=== PATIENT | male | born 1965 | race Caucasian/White ===

== ENCOUNTER 2021-09-06 18:09 | Inpatient (IN) | payer BC ==
[~2021-09-06] VITALS: Ht 185.5 cm; Wt 147.5 kg
[~2021-09-06 18:09] MED LIST: ACHD5005 PO; CIPR-225 PO; DOCU-143 PO; HYDR-4226 PO; METR500T PO
[2021-09-07] MEDS ORDERED: ONDANSETRON 4 MG/5 ML ORAL SOLN (ZOFRAN) 5 ML PO PRN (00:30)
[2021-09-07] MEDS ORDERED: NS IV 1000 ML 1,000 ML IV SCH (00:30)
[2021-09-07] MEDS ORDERED: ONDANSETRON 4 MG/2 ML (SDV) Z0FRAN IV PRN (00:30)
[2021-09-07] MEDS ORDERED: PROPOFOL DRIP (ICU) 100 ML IV SCH (00:30)
[2021-09-07] MEDS ORDERED: ACETAMINOPHEN 650 MG SUPP (TYLENOL) PR PRN (00:30)
[2021-09-07] MEDS ORDERED: ACETAMINOPHEN 325 MG TABLET PO PRN (00:30)
--- NOTE | 2021-09-07 00:35 | Progress Note ---
Progress Note CC: Acute respiratory failure from COVID-19 PNA HPI: This is a 56yoWM clinic patient of Alayna Corey NP who was transferred from [facility] ICU after admitted earlier in the evening for worsened acute respiratory failure and hypotension. He currently smokes and uses CPAP for APOORVA for 2 years. He was vaccinated against COVID with J&J this summer. His sugars were elevated at 600+ on admit and given Decadron so insulin drip was initiated along with Cefepime and Zmax and Lovenox. IVF given for low BP but lactic acid was 2.0. D- dimer was 0.66. ABG revealed 7.29/49/49 but he was well appearing so he was admitted to [facility] with ICU bed reserved at [facility]. He became more hypotensive and required bipap initiation so the decision was made to move to [facility] for higher level of care. Actemra was discussed with the patient and will be given. Creatinine was 2.0 on admit. HGBA1C 14.9. Had CAD stents years ago no recent or regular f/u. He has worked at [employer] in [place] for 11 years in [facility] and he lives alone. JELENA MAYFIELD DO Sep 07, 2021 00:35
[2021-09-07] MEDS ORDERED: DEXTROSE 50% 50 ML (IMS) SYR IV PRN (00:45)
[2021-09-07] MEDS ORDERED: inSUlin (REGULAR) HUMAN 1 UNIT/0.01 ML (CHARGE PER UNIT) IV ONE (00:45)
[2021-09-07] MEDS ORDERED: NOREPINEPHRINE 8 MG/250 ML 250 ML IV ONE (01:57)
[2021-09-07] MEDS ORDERED: NS IV 1000 ML 1,000 ML ONE (02:02)
[2021-09-07] MEDS ORDERED: NOREPINEPHRINE 8 MG/250 ML 250 ML IV SCH (02:15)
[2021-09-07] MEDS ORDERED: inSUlin (REGULAR) HUMAN 1 UNIT/0.01 ML (CHARGE PER UNIT) ONE (02:32)
[2021-09-07] MEDS: NOREPINEPHRINE 8 MG/250 ML 250 ML IV SCH ×3 (02:33→16:37)
[2021-09-07 02:34] LABS: BASOPHILS % (AUTO) 0 % (0-10); EOSINOPHILS % (AUTO) 0 % (0-10); HEMATOCRIT 48 % (40-54); HEMOGLOBIN 15.4 g/dL (13.3-17.7); LYMPHOCYTES # (AUTO) 0.6 10^3/uL (1.0-4.0); LYMPHOCYTES % (AUTO) 9 % (12-44); MEAN CORPUSCULAR HEMOGLOBIN 29 pg (25-34); MEAN CORPUSCULAR HGB CONC 32 g/dL (32-36); MEAN CORPUSCULAR VOLUME 88 fL (80-99); MEAN PLATELET VOLUME 11.6 fL (9.0-12.2); MONOCYTES # (AUTO) 0.4 10^3/uL (0.0-1.0); MONOCYTES % (AUTO) 6 % (0-12); NEUTROPHILS # (AUTO) 5.8 10^3/uL (1.8-7.8); NEUTROPHILS % (AUTO) 85 % (42-75); PLATELET COUNT 178 10^3/uL (130-400); WHITE BLOOD COUNT 6.8 10^3/uL (4.3-11.0)
[2021-09-07] MEDS: NS IV 1000 ML 1,000 ML IV SCH ×3 (02:34→13:25)
[2021-09-07 02:46] LABS: ALBUMIN 3.7 GM/DL (3.2-4.5); CHLORIDE 95 MMOL/L (98-107); POTASSIUM 5.1 MMOL/L (3.6-5.0); SODIUM 127 MMOL/L (135-145)
[2021-09-07 02:48] LABS: CALCIUM 8.1 MG/DL (8.5-10.1); TRIGLYCERIDES 203 MG/DL (<150)
[2021-09-07 02:49] LABS: GLUCOSE 375 MG/DL (70-105); TOTAL PROTEIN 7.4 GM/DL (6.4-8.2)
[2021-09-07 02:50] LABS: CARBON DIOXIDE 19 MMOL/L (21-32)
[2021-09-07 02:51] LABS: BILIRUBIN,TOTAL 0.4 MG/DL (0.1-1.0)
[2021-09-07 02:52] LABS: ALKALINE PHOSPHATASE 77 U/L (40-136); CREATININE SERUM 1.97 MG/DL (0.60-1.30); GFR ESTIMATED 35
[2021-09-07 02:53] LABS: BUN/CREATININE RATIO 20; PHOSPHORUS 4.9 MG/DL (2.3-4.7)
[2021-09-07 02:55] LABS: ALANINE AMINOTRANSFERASE 19 U/L (0-55)
[2021-09-07 02:56] LABS: MAGNESIUM 2.6 MG/DL (1.6-2.4)
[2021-09-07] MEDS: fentaNYL DRIP PRE-MIX 250 ML IV SCH (03:24)
[2021-09-07] MEDS: MAGNESIUM 1 GM/100 ML IVPB 100 ML IV SCH (03:29)
[2021-09-07] MEDS: POTASSIUM CL 10MEQ/50ML IVPB 50 ML IV SCH (03:29)
[2021-09-07] MEDS: KCL 20 MEQ TAB (K-DUR) PO SCH (03:29)
--- NOTE | 2021-09-07 04:02 | Tele-ICU Progress Note ---
Progress Note Tele ICU Brief admit note 56 yo man transferred from outside care facility with hypoxemic respiratory failure due to COVID PNA. Per records: He received J&J during Summer. no booster. 3 days of symptoms prior to presentation there, now 4 days illness. PMHx reported COPD using nocturnal CPAP, cigarette abuse, CAD s/p stents. He presented to OSH with hyperglycemia and markedly elevated HB A1C but no outpt med reconciliation showing hypoglycemic agents or insulin. CXR from OSH has lower lung moralez cut off , appears consolidation LLL. perihilar infiltrates. Currrent BiPAP / 85% saturations 92%. Hospitalist has completed orders, placed pt on insulin drip, serial labs, Actemra, acyclovir, azithromycin, cefepime, decadron . DVT Prophylaxis : Lovenox, GIB Prophylaxis: Protonix. ABGs, procalcitonin added to AM labs. No tele ICU interventions needed at this time. Focused Exam Lactate Level 09/07/21 02:25: Lactic Acid Level 1.98 Height, Weight, BMI Height: 6'1.00" Weight: 324lbs. 0.0oz. 146.916261yy; 42.42 BMI Method:Stated Lactic Acid Level Laboratory Tests Test 09/07/21 02:25 Lactic Acid Level 1.98 MMOL/L (0.50-2.00) FAY RENEE DO Sep 07, 2021 04:02
[2021-09-07] MEDS: ENOXAPARIN 40 MG/0.4 ML (LOVENOX) SYR SC SCH ×2 (05:13→17:31)
[2021-09-07] MEDS: CEFEPIME 1,000 MG/NS 50 ML IVPB IV SCH ×6 (05:13→17:31)
--- NOTE | 2021-09-07 06:26 | Diagnostic Imaging Report ---
EXAMINATION: Chest 1 view HISTORY: Covid-19 COMPARISON: 09/06/2021 FINDINGS: There are moderate left sided airspace opacities. There is a small left effusion. No pneumothorax. Heart size is unchanged. There are mild right base airspace opacities. IMPRESSION: 1. Moderate left and mild right base airspace opacities consistent with history of pneumonia. Dictated by: Dictated on workstation # [id number]
[2021-09-07 06:32] LABS: ABG BASE EXCESS -4.7 MMOL/L (-2.5-2.5); ABG OXYGEN SATURATION 93 % (94-100); ABG PCO2 63 MMHG (35-45); ABG PO2 67 MMHG (79-93); ABG TCO2 25.1 MMOL/L (21.0-31.0)
[2021-09-07 06:37] LABS: ABG PH 7.18 (7.37-7.43); ALLENS TEST YES-POS; INSPIRED O2 90%; VENTILATOR NO
[2021-09-07 06:38] LABS: PATIENT TEMP 35.3
[2021-09-07 06:45] VITALS: BP 140/67
[2021-09-07] MEDS ORDERED: TOCILIZUMAB INJECTION (NON-FOR 800 MG in NS (IVPB) 60 ML IV ONE (07:00)
[2021-09-07] MEDS ORDERED: FLU QUADRIvalent (3YOA+) 60 mcg/0.5 ml 2021-22(AFLURIA) IM ONE (07:15)
[2021-09-07] MEDS: PANTOPRAZOLE 40 MG (PROTONIX) VIAL IV SCH (08:40)
[2021-09-07] MEDS: ACYCLOVIR 400 MG TABLET (ZOVIRAX) PO SCH ×2 (08:47→20:14)
[2021-09-07] MEDS ORDERED: CEFEPIME INJECTION 2,000 MG in NS (IVPB) 50 ML IV SCH (09:00)
[2021-09-07 09:03] LABS: ABG BASE EXCESS -4.7 MMOL/L (-2.5-2.5); ABG OXYGEN SATURATION 96 % (94-100); ABG PCO2 56 MMHG (35-45); ABG PO2 86 MMHG (79-93); ABG TCO2 23.8 MMOL/L (21.0-31.0)
[2021-09-07 09:04] LABS: ABG PH 7.22 (7.37-7.43); ALLENS TEST YES-POS
[2021-09-07 09:05] LABS: INSPIRED O2 90%; PATIENT TEMP 36.2; VENTILATOR NO
[2021-09-07 10:28] VITALS: BP 103/59
[2021-09-07] MEDS: inSUlin ASPART (NovoLOG) 1 UNIT/0.01 ML (CHARGE PER UNIT) SQ SCH ×3 (11:27→19:53)
--- NOTE | 2021-09-07 11:35 | Physical Therapy Progress Note ---
Therapy Progress Note Patient currently on Hold per physician due to increase O2 demand. BREANA ALFONSO PT Sep 07, 2021 11:35
--- NOTE | 2021-09-07 11:58 | Occ Therapy Progress Note ---
Therapy Progress Note Pt on hold this date per RN. OT will attempt evaluation tomorrow. TRUDY DAVILA OT Sep 07, 2021 11:58
[2021-09-07] MEDS ORDERED: POTA-169 PO (12:11)
[2021-09-07] MEDS ORDERED: ATOR40TA70 PO (12:11)
[2021-09-07] MEDS ORDERED: PRAS10TA10 PO (12:11)
[2021-09-07] MEDS ORDERED: LISI20TA26 PO (12:11)
[2021-09-07] MEDS ORDERED: DILT240C91 PO (12:11)
[2021-09-07] MEDS ORDERED: EMPA10TA PO (12:11)
[2021-09-07] MEDS ORDERED: FURO40TA4 PO (12:11)
[2021-09-07] MEDS ORDERED: METF-399 PO (12:11)
[2021-09-07] MEDS ORDERED: INSU100I14 SQ (12:54)
[2021-09-07] MEDS ORDERED: INSU100I29 SC (12:54)
--- NOTE | 2021-09-07 12:56 | History & Physical ---
[facility] 09/07/21 1255: History of Present Illness History of Present Illness Reason for visit/HPI CC: Acute Hypoxic Respiratory Failure HPI: 56 yo male transferred from [facility] ICU to [facility] ICU late last night/early this morning (09/07). Patient is vaccinated against covid. On admission at [facility], patient was hypotensive, hyperglycemic (600+ sugars and A1c of 14.9), and acidotic, however, was well appearing granting admission at [facility]. During the night, patient became more hypotensive and hypoxic requiring BiPAP, therefore, he was transferred to [facility]. ABG on admission was 7.18/63/67, sodium of 127, potassium of 5.1, and an x-ray revealing moderate left and mild right base airspace opacities consistent with history of pneumonia. Patient currently smokes and uses CPAP for APOORVA x 2 years and has a history of CAD with stents placed years ago. 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 History was difficult to obtain as patient was currently on BiPAP. Most of the history was obtained through chart review. Patient denies any pain, fevers, chills, nausea, or vomiting. Shrugs his shoulders when asked if his breathing is improving. Date of Admission Sep 07, 2021 at 01:50 Date Seen by a Provider: Sep 07, 2021 Time Seen by a Provider: 09:40 I consulted on this patient on 09/07/21 12:50 Attending Physician Selina Mayfield DO Admitting Physician No,Local Physician Consult Acute Hypoxic Respiratory Failure Allergies and Home Medications Allergies Coded Allergies: No Known Drug Allergies (Unverified , 01/23/16) Patient Home Medication List Home Medication List Reviewed: Yes Atorvastatin Calcium (Atorvastatin Calcium) 40 Mg Tablet, 40 MG PO HS, (Report ed) Entered as Reported by: KATLYN FLEMING on 09/07/211210 Last Action: Reviewed Diltiazem HCl (Diltiazem 24Hr ER) 240 Mg Cap.er.24h, 240 MG PO DAILY, (Reported) Entered as Reported by: KATLYN FLEMING on 09/07/211210 Last Action: Reviewed Empagliflozin (Jardiance) 10 Mg Tablet, 10 MG PO DAILY, (Reported) Entered as Reported by: KATLYN FLEMING on 09/07/211210 Last Action: Reviewed Furosemide (Furosemide) 40 Mg Tablet, 40 MG PO DAILY, (Reported) Entered as Reported by: KATLYN FLEMING on 09/07/211210 Last Action: Reviewed Insulin Aspart (Novolog Flexpen) 300 Units/3 Ml Solution, 15 UNITS SQ AC, (Reported) Entered as Reported by: KATLYN FLEMING on 09/07/21 125 Last Action: Reviewed Insulin Detemir (Levemir Flextouch) 100 Unit/1 Ml Insuln.pen, 40 UNITS SC BID, (Reported) Entered as Reported by: KATLYN FLEMING on 09/07/21 125 Last Action: Reviewed Lisinopril (Lisinopril) 20 Mg Tablet, 20 MG PO HS, (Reported) Entered as Reported by: KATLYN FLEMING on 09/07/211210 Last Action: Reviewed Metformin HCl (Metformin HCl) 1,000 Mg Tablet, 1,000 MG PO BID, (Reported) Entered as Reported by: KATLYN FLEMING on 09/07/211210 Last Action: Reviewed Potassium Chloride (Klor-Con M20) 20 Meq Tab.er.prt, 20 MEQ PO BID, (Reported) Entered as Reported by: KATLYN FLEMING on 09/07/211210 Last Action: Reviewed Prasugrel HCl (Prasugrel HCl) 10 Mg Tablet, 10 MG PO DAILY, (Reported) Entered as Reported by: KATLYN FLEMING on 09/07/211210 Last Action: Reviewed Discontinued Medications Ciprofloxacin HCl (Cipro) 500 Mg Tablet, 500 MG PO BID Discontinued Reason: No Longer Taking Prescribed by: MXA SANTIAGO on 01/23/16 1544 Last Action: Discontinued Hydrocodone Bit/Acetaminophen (Lortab 5 Mg Tablet) 1 Each Tablet, 1 TAB PO Q4H PRN Discontinued Reason: No Longer Taking Prescribed by: MARISOL STONER on 01/29/16 1800 Last Action: Discontinued Past Wlzlojb-Cffzrr-Xqjmjg Hx Patient Social History Tobacco Use?: Yes Tobacco type used: Cigarettes Smoking Status: Current Everyday Smoker Smokeless Tobacco Frequency: Never a User Use of E-Cig and/or Vaping Deondre: Never a User Substance use?: No Alcohol Use?: No Immunizations Up To Date First/Initial COVID19 Vaccinat: NOVEMBER 2020 Current Status Advance Directives: No Communicates: Verbally Primary Language: [place] Citizen Preferred Spoken Language: [place] Citizen Is interpretation needed?: No Implanted or Applied Medical D: Stents Past Medical History Surgeries: Coronary Stent Sleep Apnea, COPD Coronary Artery Disease, High Cholesterol Gall Bladder Disease Diabetes, Non-Insulin dep Review of Systems Constitutional: No chills, No fever Respiratory: No cough; short of breath, other (currently on BiPAP) Cardiovascular: No chest pain Gastrointestinal: No abdominal pain, No nausea, No vomiting Genitourinary: No hematuria; other (james) Musculoskeletal: No joint pain, No joint swelling Skin: No change in color, No change in hair/nails Psychiatric/Neurological: Denies Numbness, Denies Tingling Physical Exam Vital Signs Vital Signs - First Documented 09/07/21 09/07/21 09/07/21 01:50 02:00 02:05 Temp 36.0 Pulse 73 Resp 34 B/P (MAP) 96/60 Pulse Ox 89 O2 Delivery NIV Bilevel O2 Flow Rate 100.00 FiO2 100 Capillary Refill : Height, Weight, BMI Height: 6'1.00" Weight: 324lbs. 0.0oz. 146.150715ha; 42.42 BMI Method:Stated General Appearance: Mild Distress, Obese Eyes: Bilateral Eye Normal Inspection, Bilateral Eye PERRL HEENT: PERRL/EOMI, Normal ENT Inspection (No gross deformities. bipap mask over nose and mouth) Neck: Non Tender, Supple Respiratory: Chest Non Tender, No Accessory Muscle Use, No Respiratory Distress, Other (Using bipap) Cardiovascular: Regular Rate, Rhythm, Normal Peripheral Pulses (Radial pusles 2+ bilaterally) Gastrointestinal: Normal Bowel Sounds, Non Tender, Soft Genital/Rectal: Other (Rectal defferred, James in place) Back: No CVA Tenderness, No Vertebral Tenderness Extremity: No Calf Tenderness, No Pedal Edema Neurologic/Psychiatric: Alert, Oriented x3 Skin: Normal Color, Warm/Dry Lymphatic: No Adenopathy (Posterior auricular or supraclavicular) Assessment/Plan Assessment and Plan Acute Hypoxic Respiratory Failure COVID-19 + 09/06/2021 Respiratory Acidosis APOORVA requiring CPAP Increased BMI (42.4) Smoker Hyponatremia possibly secondary to hyperglycemia Hyperkalemia CAD with Coronary Stent Placement Acute Kidney Injury Hyperglycemia Uncontrolled DM type 2 (A1c = 14) Possible CKD secondary to type 2 DM High risk intubation/actemra with picc line placement Continue to Monitor Respiratory status. If respiratory status continues to decline, patient will require intubation Cardiac Diet Repeat labs in AM Hyperkalemia protocol (albuterol, insulin, calcium gluconate) Continue IV Fluids, Normal saline. Discontinue Metformin due to RANDALL, hypoxemia, and acidosis Admission Diagnosis Acute Hypoxic Respiratory Failure Admission Status: Inpatient Order (span 2 midnights) Reason for Inpatient Admission: Acute Hypoxic Respiratory Failure SELINA MAYFIELD 09/08/21 0545: History of Present Illness History of Present Illness Reason for visit/HPI Pt is currently lying on his right side on BiPAP BiPAP dependency Actemra given Checked meds and labs Updated Nurse Pt denies wanting his family updated at this current time Pt is 100% on BiPAP Allergies and Home Medications Allergies Coded Allergies: No Known Drug Allergies (Unverified , 01/23/16) Patient Home Medication List Home Medication List Reviewed: Yes Atorvastatin Calcium (Atorvastatin Calcium) 40 Mg Tablet, 40 MG PO HS, (Reported) Entered as Reported by: KATLYN FLEMING on 09/07/211210 Last Action: Reviewed Diltiazem HCl (Diltiazem 24Hr ER) 240 Mg Cap.er.24h, 240 MG PO DAILY, (Reported) Entered as Reported by: KATLYN FLEMING on 09/07/211210 Last Action: Reviewed Empagliflozin (Jardiance) 10 Mg Tablet, 10 MG PO DAILY, (Reported) Entered as Reported by: KATLYN FLEMING on 09/07/211210 Last Action: Reviewed Furosemide (Furosemide) 40 Mg Tablet, 40 MG PO DAILY, (Reported) Entered as Reported by: KATLYN FLEMING on 09/07/211210 Last Action: Reviewed Insulin Aspart (Novolog Flexpen) 300 Units/3 Ml Solution, 15 UNITS SQ AC, (Reported) Entered as Reported by: KATLYN FLEMING on 09/07/21 125 Last Action: Reviewed Insulin Detemir (Levemir Flextouch) 100 Unit/1 Ml Insuln.pen, 40 UNITS SC BID, (Reported) Entered as Reported by: KATLYN FLEMING on 09/07/21 125 Last Action: Reviewed Lisinopril (Lisinopril) 20 Mg Tablet, 20 MG PO HS, (Reported) Entered as Reported by: KATLYN FLEMING on 09/07/211210 Last Action: Reviewed Metformin HCl (Metformin HCl) 1,000 Mg Tablet, 1,000 MG PO BID, (Reported) Entered as Reported by: KATLYN FLEMING on 09/07/211210 Last Action: Reviewed Potassium Chloride (Klor-Con M20) 20 Meq Tab.er.prt, 20 MEQ PO BID, (Reported) Entered as Reported by: KATLYN FLEMING on 09/07/211210 Last Action: Reviewed Prasugrel HCl (Prasugrel HCl) 10 Mg Tablet, 10 MG PO DAILY, (Reported) Entered as Reported by: KATLYN FLEMING on 09/07/211210 Last Action: Reviewed Discontinued Medications Ciprofloxacin HCl (Cipro) 500 Mg Tablet, 500 MG PO BID Discontinued Reason: No Longer Taking Prescribed by: MAX SANTIAGO on 01/23/16 1544 Last Action: Discontinued Hydrocodone Bit/Acetaminophen (Lortab 5 Mg Tablet) 1 Each Tablet, 1 TAB PO Q4H PRN Discontinued Reason: No Longer Taking Prescribed by: MARISOL STONER on 01/29/16 1800 Last Action: Discontinued Past Wvfvcjd-Pnyqjk-[place] Hx Patient Social History Marrital Status: single Employed/Student: employed Tobacco Use?: Yes Smoking Status: Current Everyday Smoker Past Medical History Surgeries: Coronary Stent, Gallbladder Sleep Apnea, COPD Currently Using CPAP: Yes Currently Using BIPAP: No Coronary Artery Disease, High Cholesterol, Hypertension Diabetes, Non-Insulin dep Review of Systems Constitutional: see HPI, dizziness, malaise, weakness EENTM: no symptoms reported Respiratory: dyspnea on exertion, short of breath, other (currently on BiPAP) Cardiovascular: no symptoms reported Gastrointestinal: no symptoms reported Genitourinary: no symptoms reported Musculoskeletal: no symptoms reported Skin: no symptoms reported Psychiatric/Neurological: No Symptoms Reported All Other Systems Reviewed Negative Unless Noted: Yes Physical Exam General Appearance: WD/WN, Chronically ill, Mild Distress, Obese Eyes: Bilateral Eye Normal Inspection, Bilateral Eye PERRL, Bilateral Eye EOMI HEENT: PERRL/EOMI, Normal ENT Inspection, Pharynx Normal Neck: Full Range of Motion, Normal Inspection, Non Tender, Supple, Carotid Br uit Respiratory: Chest Non Tender, Lungs Clear, No Accessory Muscle Use, No Respiratory Distress, Decreased Breath Sounds, Other (Using bipap) Cardiovascular: Regular Rate, Rhythm, No Edema, No Gallop, No JVD, No Murmur, Normal Peripheral Pulses Gastrointestinal: Normal Bowel Sounds, No Organomegaly, No Pulsatile Mass, Non Tender, Soft Back: Normal Inspection, No CVA Tenderness, No Vertebral Tenderness Extremity: Normal Capillary Refill, Normal Inspection, Normal Range of Motion, Non Tender, No Calf Tenderness, No Pedal Edema Neurologic/Psychiatric: Alert, Oriented x3, No Motor/Sensory Deficits, Normal Mood/Affect Skin: Normal Color, Warm/Dry Lymphatic: No Adenopathy Assessment/Plan Assessment and Plan BiPAP s/p Actemra Monitor closely High risk for intubation Decadron Lovenox Admission Diagnosis Admission Status: Inpatient Order (span 2 midnights) Reason for Inpatient Admission: covid Supervisory-Addendum Brief Verification & Attestation Participated in pt care: history, MDM, physical Personally performed: exam, history, MDM, supervision of care Care discussed with: Medical Student Procedures: n/a Results interpretation: Verified all documentation Verification and Attestation of Medical Student E/M Service A medical student performed and documented this service in my presence. I reviewed and verified all information documented by the medical student and made modifications to such information, when appropriate. I personally performed the physical exam and medical decision making. Selina Mayfield, Sep 08, 2021,05:41 MARNI RONQUILLO [facility] Sep 07, 2021 12:55 SELINA MAYFIELD DO Sep 08, 2021 05:45
[2021-09-07 14:04] VITALS: BP 111/83
[2021-09-07 15:43] LABS: ABG BASE EXCESS -6.4 MMOL/L (-2.5-2.5); ABG OXYGEN SATURATION 94 % (94-100); ABG PCO2 58 MMHG (35-45); ABG PO2 72 MMHG (79-93); ABG TCO2 22.8 MMOL/L (21.0-31.0)
[2021-09-07 15:44] LABS: ABG PH 7.18 (7.37-7.43)
[2021-09-07 15:45] LABS: ALLENS TEST YES-POS; INSPIRED O2 85 L; PATIENT TEMP 36.3; VENTILATOR NO
[2021-09-07] MEDS ORDERED: SODIUM BICARB 8.4% 50 MEQ/50 ML (ABBOTT) SYR IV NR (16:15)
[2021-09-07] MEDS: AZITHROMYCIN INJECTION 500 MG in NS (IVPB) 250 ML IV SCH (17:30)
[2021-09-08] MEDS: NS IV 1000 ML 1,000 ML IV SCH ×4 (00:29→23:31)
[2021-09-08] MEDS: CEFEPIME 1,000 MG/NS 50 ML IVPB IV SCH ×10 (00:29→23:31)
[2021-09-08] MEDS: inSUlin ASPART (NovoLOG) 1 UNIT/0.01 ML (CHARGE PER UNIT) SQ SCH ×10 (00:32→23:30)
[2021-09-08] MEDS: fentaNYL DRIP PRE-MIX 250 ML IV SCH ×2 (00:32→23:09)
[2021-09-08 02:43] VITALS: BP 132/76
[2021-09-08 04:24] LABS: ABG BASE EXCESS -3.7 MMOL/L (-2.5-2.5); ABG OXYGEN SATURATION 96 % (94-100); ABG PCO2 56 MMHG (35-45); ABG PO2 79 MMHG (79-93); ABG TCO2 24.6 MMOL/L (21.0-31.0)
[2021-09-08 04:26] LABS: ALLENS TEST YES-POS; BASOPHILS % (AUTO) 0 % (0-10); EOSINOPHILS % (AUTO) 0 % (0-10); HEMATOCRIT 45 % (40-54); HEMOGLOBIN 14.7 g/dL (13.3-17.7); LYMPHOCYTES # (AUTO) 0.6 10^3/uL (1.0-4.0); LYMPHOCYTES % (AUTO) 9 % (12-44); MEAN CORPUSCULAR HEMOGLOBIN 29 pg (25-34); MEAN CORPUSCULAR HGB CONC 33 g/dL (32-36); MEAN CORPUSCULAR VOLUME 88 fL (80-99); MEAN PLATELET VOLUME 11.3 fL (9.0-12.2); MONOCYTES # (AUTO) 0.3 10^3/uL (0.0-1.0); MONOCYTES % (AUTO) 5 % (0-12); NEUTROPHILS # (AUTO) 5.4 10^3/uL (1.8-7.8); NEUTROPHILS % (AUTO) 85 % (42-75); PLATELET COUNT 190 10^3/uL (130-400); WHITE BLOOD COUNT 6.4 10^3/uL (4.3-11.0)
[2021-09-08 04:27] LABS: INSPIRED O2 100% BIPAP; VENTILATOR NO
[2021-09-08 04:28] LABS: PATIENT TEMP 36.6
[2021-09-08 04:29] LABS: ABG PH 7.23 (7.37-7.43)
--- NOTE | 2021-09-08 04:40 | Diagnostic Imaging Report ---
EXAMINATION: Chest 1 view HISTORY: Pneumonia COMPARISON: 09/07/2021 FINDINGS: Stable enlargement of the cardiac silhouette. There are low lung volumes with patchy consolidation within both lungs, left greater than right. Left consolidation appears to be greater than on 09/07/2021. Right-sided PICC line is unchanged. No pneumothorax. There may be small left pleural effusion. The osseous structures are intact. IMPRESSION: 1. Increasing left lung atelectasis or consolidation with likely small left pleural effusion. Dictated by: Dictated on workstation # [id number]
[2021-09-08 04:43] LABS: POTASSIUM 6.2 MMOL/L (3.6-5.0)
[2021-09-08 04:44] LABS: CALCIUM 7.5 MG/DL (8.5-10.1)
[2021-09-08 04:45] LABS: TOTAL PROTEIN 6.2 GM/DL (6.4-8.2)
[2021-09-08 04:47] LABS: BILIRUBIN,TOTAL 0.4 MG/DL (0.1-1.0)
[2021-09-08] MEDS: KCL 20 MEQ TAB (K-DUR) PO SCH (04:48)
[2021-09-08] MEDS: MAGNESIUM 1 GM/100 ML IVPB 100 ML IV SCH (04:48)
[2021-09-08] MEDS: POTASSIUM CL 10MEQ/50ML IVPB 50 ML IV SCH (04:48)
[2021-09-08 04:49] LABS: CREATININE SERUM 1.33 MG/DL (0.60-1.30); PHOSPHORUS 4.1 MG/DL (2.3-4.7)
[2021-09-08 04:52] LABS: MAGNESIUM 2.6 MG/DL (1.6-2.4)
[2021-09-08] MEDS: ENOXAPARIN 40 MG/0.4 ML (LOVENOX) SYR SC SCH ×2 (05:02→17:46)
[2021-09-08 07:09] VITALS: BP 90/63
[2021-09-08] MEDS ORDERED: DEXTROSE 50% 50 ML (IMS) SYR IV ONE (07:45)
[2021-09-08] MEDS ORDERED: SOD POLYSTERENE 15 GM/60 ML (KAYEXALATE) UNIT DOSE PO ONE (07:45)
[2021-09-08] MEDS ORDERED: SODIUM BICARB 8.4% 50 MEQ/50 ML (ABBOTT) SYR IV ONE (07:45)
[2021-09-08] MEDS ORDERED: CALCIUM GLUC. 10% 4.65 MEQ/10 ML VIAL IV ONE (07:45)
[2021-09-08] MEDS ORDERED: inSUlin (REGULAR) HUMAN 1 UNIT/0.01 ML (CHARGE PER UNIT) IV SCH (07:45)
[2021-09-08 07:59] VITALS: BP 105/83
[2021-09-08] MEDS: ACYCLOVIR 400 MG TABLET (ZOVIRAX) PO SCH ×2 (08:08→20:10)
[2021-09-08] MEDS: PRASUGREL 10 MG (EFFIENT) TABLET PO SCH (08:08)
[2021-09-08] MEDS: PANTOPRAZOLE 40 MG (PROTONIX) VIAL IV SCH (08:09)
[2021-09-08] MEDS ORDERED: RT-ALBUTEROL HFA 8.5 GM INHALER IH PRN (08:15)
--- NOTE | 2021-09-08 08:21 | Tele-ICU Progress Note ---
Subjective Date Seen by a Provider: Sep 08, 2021 Time Seen by a Provider: 08:21 Subjective/Events-last exam Patient today remained on BiPAP ventilation. His blood pressure is slightly low requiring low-dose Levophed. However his BMP revealed increase in the potassium which is 6.2. I have held his just trial and gave calcium gluconate, sodium bicarbonate, D50 W oral and IV insulin as well as a whorled Kayexalate. We will repeat another BMP at 11:00 and further evaluate patient. Discussed with the MATERIALS ENGINEERING TECHNICIAN and video visit made and discussed with the patient. Review of Systems ROS PER RN Sepsis Event Evaluation Height, Weight, BMI Height: 6'1.00" Weight: 324lbs. 0.0oz. 146.424677kv; 42.42 BMI Method:Stated Focused Exam Lactate Level 09/07/21 02:25: Lactic Acid Level 1.98 Exam Exam Patient acknowledged, consented, and participated in this virtual visit which was conducted using real time audio/video Vital Signs Date Time Temp Pulse Resp B/P (MAP) Pulse Ox O2 Delivery O2 Flow Rate FiO2 09/08/21 07:59 74 94 85 09/08/21 07:55 36.0 09/08/21 07:09 73 24 94 85.00 09/08/21 06:00 75 27 105/83 87 NIV Bilevel 100.00 09/08/21 05:00 77 22 111/65 89 NIV Bilevel 100.00 09/08/21 04:24 NIV Bilevel 100 09/08/21 04:11 36.6 09/08/21 04:00 75 20 111/66 89 NIV Bilevel 100.00 09/08/21 03:00 78 21 110/65 91 NIV Bilevel 100.00 09/08/21 02:43 80 25 92 100.00 09/08/21 02:00 66 24 124/70 92 NIV Bilevel 100.00 09/08/21 01:00 62 24 112/63 95 NIV Bilevel 100.00 09/08/21 01:00 62 09/08/21 00:34 NIV Bilevel 100 09/08/21 00:00 36.4 09/08/21 00:00 76 11 109/49 94 NIV Bilevel 100.00 09/07/21 23:00 64 24 106/62 90 NIV Bilevel 100.00 09/07/21 22:00 79 22 105/58 87 NIV Bilevel 100.00 09/07/21 21:59 80 30 92 100.00 09/07/21 21:00 81 23 105/59 92 NIV Bilevel 100.00 09/07/21 20:11 NIV Bilevel 100 09/07/21 20:00 83 24 95/56 90 NIV Bilevel 100.00 09/07/21 19:44 36.3 09/07/21 19:00 74 114/63 90 NIV Bilevel 90.00 09/07/21 19:00 74 09/07/21 18:42 73 24 92 85.00 09/07/21 18:00 71 121/72 92 NIV Bilevel 90.00 09/07/21 17:00 68 94 NIV Bilevel 90.00 09/07/21 16:37 73 110/60 09/07/21 16:16 NIV Bilevel 85 09/07/21 16:00 70 103/57 97 NIV Bilevel 90.00 09/07/21 15:00 64 116/56 93 NIV Bilevel 90.00 09/07/21 14:04 69 25 94 90.00 09/07/21 14:00 72 120/64 96 NIV Bilevel 90.00 09/07/21 13:00 65 09/07/21 13:00 64 126/67 97 NIV Bilevel 90.00 09/07/21 12:15 NIV Bilevel 100 09/07/21 12:00 61 119/56 99 NIV Bilevel 90.00 09/07/21 11:28 35.6 09/07/21 11:00 62 103/54 96 NIV Bilevel 90.00 09/07/21 10:28 64 24 94 90.00 09/07/21 10:00 71 80/41 90 NIV Bilevel 90.00 09/07/21 09:00 74 99/62 89 NIV Bilevel 90.00 09/07/21 08:25 NIV Bilevel 100 I & O 09/08/21 07:00 Intake Total 7700 ml Output Total 2850 ml Balance 4850 ml Height & Weight Height: 6'1.00" Weight: 324lbs. 0.0oz. 146.510536mj; 42.42 BMI Method:Stated General Appearance: WD/WN, Chronically ill, Mild Distress, Obese HEENT: PERRL/EOMI, Normal ENT Inspection, Pharynx Normal Neck: Full Range of Motion, Normal Inspection, Non Tender, Supple, Carotid Bruit Respiratory: Chest Non Tender, Lungs Clear, No Accessory Muscle Use, No Respiratory Distress, Decreased Breath Sounds, Other (Using bipap) Cardiovascular: Regular Rate, Rhythm, No Edema, No Gallop, No JVD, No Murmur, Normal Peripheral Pulses Extremity: Normal Capillary Refill, Normal Inspection, Normal Range of Motion, Non Tender, No Calf Tenderness, No Pedal Edema Neurologic/Psychiatric: Alert, Oriented x3, No Motor/Sensory Deficits, Normal Mood/Affect Skin: Normal Color, Warm/Dry Lymphatic: No Adenopathy Other comments PE PER RN Results Lab Laboratory Tests 09/07/21 02:25 09/08/21 04:15 Assessment/Plan Assessment/Plan 1. Acute Covid19 pneumonia 2. Acute hypoxic respiratory failure 3. Hypotension 4. Hyperkalemia probably due to combination of steroids and AMADEO inhibitor's. Recommendations 1. Continue BiPAP ventilation 2. Lower Levophed to keep map over 65 3. We will hold off just 12 4. Treatment for hyperkalemia including calcium gluconate, sodium bicarbonate, IV dextrose and insulin have been ordered in addition to oral Kayexalate. Repeat BMP will be done. 5. Video visit made and discussed with the MATERIALS ENGINEERING TECHNICIAN. Critical Care: Critically Ill Patient Time spent with patient (mins): 35 MARCIA MARRERO MD Sep 08, 2021 08:21
--- NOTE | 2021-09-08 10:45 | Physical Therapy Evaluation ---
PT Evaluation-General Medical Diagnosis Admission Date Sep 07, 2021 at 01:50 Medical Diagnosis: Covid with hypoxia Onset Date: Sep 07, 2021 Therapy Diagnosis Therapy Diagnosis: debility Height/Weight Height (Feet): 6 Height (Inches): 1.00 Weight (Pounds): 324 Weight (Ounces): 0.0 Precautions Precautions/Isolations: Airborne Isolation, Contact Isolation Referral Physician: Justin Reason for Referral: Evaluation/Treatment Medical History Pertinent Medical History: CAD, COPD, DM, Smoking Additional Medical History History of Present Illness History of Present Illness Reason for visit/HPI CC: Acute Hypoxic Respiratory Failure HPI: 56 yo male transferred from [facility] ICU to [facility] ICU late last night/early this morning (09/07). Patient is vaccinated against covid. On admission at [facility], patient was hypotensive, hyperglycemic (600+ sugars and A1c of 14.9), and acidotic, however, was well appearing granting admission at [facility]. During the night, patient became more hypotensive and hypoxic requiring BiPAP, therefore, he was transferred to [facility]. ABG on admission was 7.18/63/67, sodium of 127, potassium of 5.1, and an x-ray revealing moderate left and mild right base airspace opacities consistent with history of pneumonia. Patient currently smokes and uses CPAP for APOORVA x 2 years and has a history of CAD with stents placed years ago. He has worked at [employer] in [employer] [place] [place] for 11 years in [employer] [facility] and he lives alone. History was difficult to obtain as patient was currently on BiPAP. Most of the history was obtained through chart review. Patient denies any pain, fevers, chills, nausea, or vomiting. Shrugs his shoulders when asked if his breathing is improving. Current History transfer from [facility] for higher level of care Reviewed History: Yes Social History Home: Single Level Current Living Status: Alone Prior Prior Level of Function SCALE: Activities may be completed with or without assistive devices. 9-Idskhlswed-zclbrnd completes the activity by him/herself with no assistance from a helper. 5-Set-up or Clean-up Assistance-helper sets up or cleans up; patient completes activity. [place] assists only prior to or following the activity. 4-Supervision or Touching Assistance-helper provides verbal cues and/or touching/steadying and/or contact guard assistance as patient completes activity. Assistance may be provided throughout the activity or intermittently. 3-Partial/Moderate Assistance-helper does LESS THAN HALF the effort. [place] lifts, holds or supports trunk or limbs, but provides less than half the effort. 2-Substantial/Maximal Assistance-helper does MORE THAN HALF the effort. [place] lifts or holds trunk or limbs and provides more than half the effort. 0-Gqhyfjmep-doufsj does ALL the effort. Patient does none of the effort to complete the activity. Or, the assistance of 2 or more helpers is required for the patient to complete the activity. If activity was not attempted, code reason: 7-Patient Refused. 9-Not Applicable-not attempted and the patient did not perform the activity befo re the current illness, exacerbation or injury. 10-Not Attempted due to Environmental Limitations-(lack of equipment, weather re straints, etc.). 88-Not Attempted due to Medical Conditions or Safety Concerns. Bed Mobility: 6 Transfers (B,C,W/C): 6 Gait: 6 Stairs: 6 Indoor Mobility (Ambulation): Independent Stairs: Independent Prior Devices Use: None works at [employer] PT Evaluation-Current Subjective Patient agrees to PT. Currently on BiPap. Objective Patient Orientation: Normal For Age Attachments: Oxygen (BiPap), Tovar Catheter, IV ROM/Strength ROM Lower Extremities bilateral LE WFL Strength Lower Extremities 4/5 grossly bilateral LE Integumentary/Posture Bowel Incontinence: No Bladder Incontinence: Tovar Cath Posture WFL Neuromuscular (Tone, Coordination, Reflexes) grossly intact Sensory Vision: Functional Hearing: Functional Transfers Roll Left to Right (QC): 6 Sit to Lying (QC): 6 Lying to Sitting/Side of Bed(Q: 6 Sit to Stand (QC): 4 Chair/Qbl-gu-Utnuz Xfer(QC): 4 Gait Does the Patient Walk?: Yes Mode of Locomotion: Walk Anticipated Mode of Locomotion: Walk Walk 10 feet (QC): 4 (SBA for safety ) Walk 50 ft with 2 Turns(QC): 88 Walk 150 ft (QC): 88 Balance Sitting Static: Normal Sitting Dynamic: Normal Standing Static: Good Standing Dynamic: Good Assessment/Needs 56 y.o. male, will be seen by skilled PT to address pulmonary function with functional mobility and strengthening to ensure safe return to home at maximum LOF. Rehab Potential: Guarded PT Employee Benefits Manager Goals Longterm Goals PT Longterm Goals Time Frame: Sep 19, 2021 Roll Left & Right (QC): 6 Sit to Lying (QC): 6 Lying-Sitting on Side/Bed(QC): 6 Sit to Stand (QC): 6 Chair/Nxe-gn-Tlyov Xfer(QC): 6 Toilet Transfer (QC): 6 Walk 10 feet (QC): 6 Walk 50ft with 2 Turns (QC): 6 Walk 150 ft (QC): 6 PT Plan Problem List Problem List: Activity Tolerance, Functional Strength, Safety, Balance, Gait, Transfer, Bed Mobility Treatment/Plan Treatment Plan: Continue Plan of Care Treatment Plan: Bed Mobility, Education, Functional Activity Cris, Functional Strength, Gait, Safety, Therapeutic Exercise, Transfers Treatment Duration: Sep 19, 2021 Frequency: 6 times per week Estimated Hrs Per Day: .25 hour per day Patient and/or Family Agrees t: Yes Time/GCodes Time In: 915 Time Out: 935 Total Billed Treatment Time: 20 Total Billed Treatment 1 visit EVMod 20 min BREANA ALFONSO PT Sep 08, 2021 10:45
[2021-09-08 10:54] VITALS: BP 104/68
[2021-09-08] MEDS: RT-ALBUTEROL HFA 8.5 GM INHALER IH SCH ×4 (10:54→21:23)
[2021-09-08 11:21] LABS: CALCIUM 6.5 MG/DL (8.5-10.1); CREATININE SERUM 0.99 MG/DL (0.60-1.30); POTASSIUM 4.3 MMOL/L (3.6-5.0)
--- NOTE | 2021-09-08 11:26 | Progress Note ---
[facility] 09/08/21 1126: Subjective Date Seen by a Provider: Sep 08, 2021 Time Seen by a Provider: 08:30 Subjective/Events-last exam Patient continues to need BiPAP 100% with saturation of 87% Patient reports breathing is the same as yesterday x-Ray revealed increased left lung atelectasis AB.23/56/79 Potassium : 6.2 Review of Systems General: No Chills, No Other (fevers) Pulmonary: No Cough; Other (Requiring BIPAP) Cardiovascular: No: Chest Pain, Palpitations Gastrointestinal: No: Nausea, Vomiting, Abdominal Pain Focused Exam Lactate Level 09/07/21 02:25: Lactic Acid Level 1.98 Objective Exam Last Set of Vital Signs Vital Signs Date Time Temp Pulse Resp B/P (MAP) Pulse Ox O2 Delivery O2 Flow Rate FiO2 09/08/21 11:11 89 24 109/72 100 NIV Bilevel 90.00 09/08/21 07:59 85 09/08/21 07:55 36.0 Capillary Refill : I&O Intake and Output 09/07/21 23:59 Intake Total 46663 ml Output Total 2900 ml Balance 7600 ml Intake Oral 100 ml IV Total 66151 ml Output Urine Total 2900 ml Daily Weight Change No General: Alert, Oriented X3, No Acute Distress HEENT: Atraumatic, PERRLA Neck: Supple, No JVD Lungs: Clear to Auscultation, Other (Currently using bipap mask) Heart: Regular Rate, Normal S1, Normal S2 Abdomen: Normal Bowel Sounds, Soft Extremities: No Clubbing, No Cyanosis Skin: No Rashes, No Breakdown Neuro: Normal Gait, Normal Speech Results Lab Laboratory Tests 09/07/21 11:26: Glucometer 126H 09/07/21 15:34: Glucometer 334H 09/07/21 19:49: Glucometer 291H 09/07/21 20:34: Glucometer 285H 09/08/21 00:26: Glucometer 259H 09/08/21 04:00: Glucometer 244H 09/08/21 04:15: White Blood Count 6.4, Red Blood Count 5.15, Hemoglobin 14.7, Hematocrit 45, Mean Corpuscular Volume 88, Mean Corpuscular Hemoglobin 29, Mean Corpuscular Hemoglobin Concent 33, Red Cell Distribution Width 14.8H, Platelet Count 190, Mean Platelet Volume 11.3, Immature Granulocyte % (Auto) 1, Neutrophils (%) (Auto) 85H, Lymphocytes (%) (Auto) 9L, Monocytes (%) (Auto) 5, Eosinophils (%) (Auto) 0, Basophils (%) (Auto) 0, Neutrophils # (Auto) 5.4, Lymphocytes # (Auto) 0.6L, Monocytes # (Auto) 0.3, Eosinophils # (Auto) 0.0, Basophils # (Auto) 0.0, Immature Granulocyte # (Auto) 0.1, Blood Gas Puncture Site RR, Blood Gas Patient Temperature 36.6, Arterial Blood pH 7.23*L, Arterial Blood Partial Pressure CO2 56H, Arterial Blood Partial Pressure O2 79, Arterial Blood HCO3 23, Arterial Blood Total CO2 24.6, Arterial Blood Oxygen Saturation 96, Arterial Blood Base Excess -3.7L, Josiah Test YES-POS, Blood Gas Ventilator Setting NO, Blood Gas Inspired Oxygen 100% BIPAP, Sodium Level 135, Potassium Level 6.2H, Chloride Level 104, Carbon Dioxide Level 21, Anion Gap 10, Blood Urea Nitrogen 40H, Creatinine 1.33H, Estimat Glomerular Filtration Rate 55, BUN/Creatinine Ratio 30, Glucose Level 257H, Calcium Level 7.5L, Corrected Calcium 8.3L, Phosphorus L evel 4.1, Magnesium Level 2.6H, Total Bilirubin 0.4, Aspartate Amino Transf (AST/SGOT) 19, Alanine Aminotransferase (ALT/SGPT) 20, Alkaline Phosphatase 60, Total Protein 6.2L, Albumin 3.0L 09/08/21 07:43: Glucometer 280H 09/08/21 10:50: Assessment/Plan Assessment/Plan Assess & Plan/Chief Complaint Acute Hypoxic Respiratory Failure COVID-19 + 09/06/2021 Respiratory Acidosis APOORVA requiring CPAP Increased BMI (42.4) Smoker Hyponatremia possibly secondary to hyperglycemia Hyperkalemia CAD with Coronary Stent Placement Acute Kidney Injury Hyperglycemia Uncontrolled DM type 2 (A1c = 14) Possible CKD secondary to type 2 DM High risk intubation/actemra with picc line placement BiPAP s/p Actemra Continue to Monitor Respiratory status. If respiratory status continues to decline, patient will require intubation Decadron Lovenox Cardiac Diet Repeat labs in AM Hyperkalemia protocol (albuterol, insulin, calcium gluconate) Continue IV Fluids, Normal saline. Continue AM x-ray Clinical Quality Measures Admission Status Admission Dx Acute Hypoxic Respiratory Failure COVID-19 + 09/06/2021 Respiratory Acidosis APOORVA requiring CPAP Increased BMI (42.4) Smoker Hyponatremia possibly secondary to hyperglycemia Hyperkalemia CAD with Coronary Stent Placement Acute Kidney Injury Hyperglycemia Uncontrolled DM type 2 (A1c = 14) Possible CKD secondary to type 2 DM High risk intubation/actemra with picc line placement Continue to Monitor Respiratory status. If respiratory status continues to decline, patient will require intubation Cardiac Diet Repeat labs in AM Hyperkalemia protocol (albuterol, insulin, calcium gluconate) Continue IV Fluids, Normal saline. Discontinue Metformin due to R[place], hypoxemia, and acidosis SELINA MAYFIELD DO 09/09/21 0605: Subjective Subjective/Events-last exam Pt is sitting in chair On BiPAP Potassium 6.2 receiving insulin for that Creatinine 1.33 BiPAP at 100% Chest xray shows worsened left filtrate ABG 7.23/56/79 Very flat affect Review of Systems General: Fatigue, Malaise Pulmonary: Dyspnea Objective Exam General: Alert, Oriented X3, Cooperative, No Acute Distress Lungs: Clear to Auscultation, Other (Currently using bipap mask) Heart: Regular Rate Psych/Mental Status: Other (flat) Assessment/Plan Assessment/Plan Assess & Plan/Chief Complaint High risk for intubation BiPAP maxed Supervisory-Addendum Brief Verification & Attestation Participated in pt care: history, MDM, physical Personally performed: exam, history, MDM, supervision of care Care discussed with: Medical Student Procedures: n/a Results interpretation: Verified all documentation Verification and Attestation of Medical Student E/M Service A medical student performed and documented this service in my presence. I reviewed and verified all information documented by the medical student and made modifications to such information, when appropriate. I personally performed the physical exam and medical decision making. Selina Mayfield, Sep 09, 2021,06:04 [facility]ON[facility]ILL[facility] Sep 08, 2021 11:26 SELINA MAYFIELD DO Sep 09, 2021 06:05
--- NOTE | 2021-09-08 11:34 | Occupational Therapy Eval ---
OT Evaluation-General/PLF Medical Diagnosis Admission Date Sep 07, 2021 at 01:50 Medical Diagnosis: Covid with hypoxia Onset Date: Sep 07, 2021 Therapy Diagnosis Therapy Diagnosis: decreased ADL status Height/Weight Height (Feet): 6 Height (Inches): 1.00 Weight (Pounds): 324 Weight (Ounces): 0.0 Precautions Precautions/Isolations: Airborne Isolation, Contact Isolation Referral Physician: Justin Referral Reason: Evaluation/Treatment Medical History Pertinent Medical History: CAD, COPD, DM, Smoking Additional Medical History COPD, CAD with stents Current History transfer from [facility] with hypoxemic respiratory failure due to COVID19 Social History Home: Single Level Current Living Status: Alone ADL-Prior Level of Function SCALE: Activities may be completed with or without assistive devices. 7-Auslwfdivq-nlgwvih completes the activity by him/herself with no assistance from a helper. 5-Set-up or Clean-up Assistance-helper sets up or cleans up; patient completes activity. [place] assists only prior to or following the activity. 4-Supervision or Touching Assistance-helper provides verbal cues and/or touching/steadying and/or contact guard assistance as patient completes acti vity. Assistance may be provided throughout the activity or intermittently. 3-Partial/Moderate Assistance-helper does LESS THAN HALF the effort. [place] lifts, holds or supports trunk or limbs, but provides less than half the effort. 2-Substantial/Maximal Assistance-helper does MORE THAN HALF the effort. [place] lifts or holds trunk or limbs and provides more than half the effort. 7-Cpedfmcym-sjhjab does ALL the effort. Patient does none of the effort to complete the activity. Or, the assistance of 2 or more helpers is required for the patient to complete the activity. If activity was not attempted, code reason: 7-Patient Refused. 9-Not Applicable-not attempted and the patient did not perform the activity before the current illness, exacerbation or injury. 10-Not Attempted due to Environmental Limitations-(lack of equipment, weather restraints, etc.). 88-Not Attempted due to Medical Conditions or Safety Concerns. ADL PLOF Comments Pt reports IND with ADLs and functional mobility at PLOF, no AD Self Care: Independent Functional Cognition: Independent OT Current Status Subjective Pt in recliner, requesting to use commode, nurse present. Mental Status/Objective Patient Orientation: Person, Place, Situation Attachments: Tovar Catheter, IV, Oxygen (BiPAP), Telemetry Current Upper Extremity ROM WFL Upper Extremity Coordination WFL Upper Extremity Sensation WFL Upper Extremity Strength grossly 4/5 ADL-Treatment Eating (QC): 5 (set up with drink due to BiPAP) Oral Hygiene (QC): 88 Toileting Hygiene (QC): 4 (SBA with hygiene post BM) Other Treatments Pt in recliner, transferred to [facility] with SBA as OT managed lines. Pt completed toileting, then requests to return to bed. Pt transferred from BS to EOB, hand held assist in one hand, OT managed lines. Pt sat EOB to rest, then transferred supine independently. O2 saturation remained above 90% throughout session. Pt requests drink, nurse states OK. OT positioned straw into pt's mouth under BiPAP mask, he was then able to take a drink. Post tx, pt in bed, call light in reach and all needs met. Education OT Patient Education: Correct positioning, Energy conservation, Modified ADL techniques, Progress toward Goal/Update tx plan, Purpose of tx/functional activities, Rehab process Teaching Recipient: Patient Teaching Methods: Discussion Response to Teaching: Verbalize Understanding OT Dehydrator Operator Goals Dehydrator Operator Goals Time Frame: Sep 25, 2021 Eating (QC): 6 Oral Hygiene (QC): 6 Toileting Hygiene (QC): 6 Shower/Bathe Self (QC): 6 Upper Body Dressing (QC): 6 Lower Body Dressing (QC): 6 On/Off Footwear (QC): 6 Additional Goals: 1-Demonstrate ADL Tasks, 2-Verbalize Understanding, 3- ImproveStrength/Cris 1=Demonstrate adherence to instructed precautions during ADL tasks. 2=Patient will verbalize/demonstrate understanding of assistive devices/modifications for ADL. 3=Patient will improve strength/tolerance for activity to enable patient to perform ADL's. OT Education/Plan Problem List/Assessment Assessment: Decreased Activ Tolerance, Decreased UE Strength, Impaired Funct Balance, Impaired I ADL's Discharge Recommendations Plan/Recommendations: Continue POC Treatment Plan/Plan of Care Patient would benefit from OT for education, treatment and training to promote independence in ADL's, mobility, safety and/or upper extremity function for ADL's. Plan of Care: ADL Retraining, Functional Mobility, UE Funct Exercise/Act Treatment Duration: Sep 25, 2021 Frequency: 3 times per week (3-5 times a week) Rehab Potential: Guarded Time/GCodes Start Time: 10:50 Stop Time: 11:13 Total Time Billed (hr/min): 23 Billed Treatment Time 1, EVM (10'), ADL (13') TRUDY DAVILA OT Sep 08, 2021 11:34
[2021-09-08 15:01] VITALS: BP 135/75
[2021-09-08] MEDS: AZITHROMYCIN INJECTION 500 MG in NS (IVPB) 250 ML IV SCH (17:45)
[2021-09-08] MEDS: NOREPINEPHRINE 8 MG/250 ML 250 ML IV SCH (17:46)
[2021-09-08] MEDS ORDERED: lisINopril 20 MG (PRINIVIL) TABLET PO SCH (21:00)
[2021-09-08 21:23] VITALS: BP 133/81
[2021-09-09 03:11] VITALS: BP 133/81
[2021-09-09] MEDS: RT-ALBUTEROL HFA 8.5 GM INHALER IH SCH ×6 (03:11→22:05)
[2021-09-09] MEDS: NOREPINEPHRINE 8 MG/250 ML 250 ML IV SCH ×2 (03:44→19:18)
[2021-09-09] MEDS: inSUlin ASPART (NovoLOG) 1 UNIT/0.01 ML (CHARGE PER UNIT) SQ SCH ×9 (03:51→20:39)
[2021-09-09 04:13] LABS: ABG BASE EXCESS -0.1 MMOL/L (-2.5-2.5); ABG OXYGEN SATURATION 92 % (94-100); ABG PCO2 46 MMHG (35-45); ABG PH 7.35 (7.37-7.43); ABG PO2 61 MMHG (79-93); ABG TCO2 26.5 MMOL/L (21.0-31.0); BASOPHILS % (AUTO) 0 % (0-10); EOSINOPHILS % (AUTO) 0 % (0-10); HEMATOCRIT 42 % (40-54); HEMOGLOBIN 13.6 g/dL (13.3-17.7); LYMPHOCYTES # (AUTO) 0.6 10^3/uL (1.0-4.0); LYMPHOCYTES % (AUTO) 10 % (12-44); MEAN CORPUSCULAR HEMOGLOBIN 28 pg (25-34); MEAN CORPUSCULAR HGB CONC 32 g/dL (32-36); MEAN CORPUSCULAR VOLUME 88 fL (80-99); MEAN PLATELET VOLUME 10.6 fL (9.0-12.2); MONOCYTES # (AUTO) 0.3 10^3/uL (0.0-1.0); MONOCYTES % (AUTO) 5 % (0-12); NEUTROPHILS # (AUTO) 4.9 10^3/uL (1.8-7.8); NEUTROPHILS % (AUTO) 84 % (42-75); PLATELET COUNT 201 10^3/uL (130-400); WHITE BLOOD COUNT 5.8 10^3/uL (4.3-11.0)
[2021-09-09 04:22] LABS: ALBUMIN 2.9 GM/DL (3.2-4.5); POTASSIUM 4.7 MMOL/L (3.6-5.0)
[2021-09-09 04:23] LABS: CALCIUM 7.9 MG/DL (8.5-10.1)
[2021-09-09 04:24] LABS: ALLENS TEST POSITIVE; INSPIRED O2 90% BIPAP; PATIENT TEMP 36; VENTILATOR NO
[2021-09-09 04:25] LABS: TOTAL PROTEIN 5.8 GM/DL (6.4-8.2)
[2021-09-09 04:26] LABS: BILIRUBIN,TOTAL 0.4 MG/DL (0.1-1.0)
[2021-09-09 04:28] LABS: CREATININE SERUM 1.02 MG/DL (0.60-1.30); PHOSPHORUS 2.8 MG/DL (2.3-4.7)
[2021-09-09] MEDS: MAGNESIUM 1 GM/100 ML IVPB 100 ML IV SCH (04:30)
[2021-09-09] MEDS: POTASSIUM CL 10MEQ/50ML IVPB 50 ML IV SCH (04:30)
[2021-09-09] MEDS: KCL 20 MEQ TAB (K-DUR) PO SCH (04:30)
[2021-09-09 04:31] LABS: MAGNESIUM 2.6 MG/DL (1.6-2.4)
[2021-09-09] MEDS: CEFEPIME 1,000 MG/NS 50 ML IVPB IV SCH ×6 (05:56→17:54)
[2021-09-09] MEDS: ENOXAPARIN 40 MG/0.4 ML (LOVENOX) SYR SC SCH ×2 (05:56→17:57)
[2021-09-09 06:23] VITALS: BP 133/55
--- NOTE | 2021-09-09 06:35 | Diagnostic Imaging Report ---
Indication: Respiratory failure Frontal chest obtained at 0323 a.m. compared to 09/08/2021 There is prominent cardiomegaly. There is central vascular congestion. There appears to be slightly decreased density in the infiltrates in the left mid to lower lung field when compared to the prior study. There is no pneumothorax. Right-sided PICC line is unchanged. IMPRESSION: Prominent cardiomegaly and central vascular congestion. Infiltrates in the left mid to lower lung field appears slightly less dense compared to the prior study. Suggest continued follow-up. Dictated by: Dictated on workstation # [id number]
--- NOTE | 2021-09-09 08:51 | Progress Note ---
[facility] 09/09/21 0851: Subjective Date Seen by a Provider: Sep 09, 2021 Time Seen by a Provider: 08:27 Subjective/Events-last exam Patient reports feeling much better, Even stated that he feels as if he could go home Labs overall improving Potassium: 4.7, AB.35/46/61, CXR showed decreased density in left lung infiltrates Review of Systems General: No Chills, No Other (fevers) Pulmonary: No Cough; Other (requiring BIPAP) Cardiovascular: No: Chest Pain, Palpitations Gastrointestinal: No: Nausea, Vomiting Focused Exam Lactate Level 09/07/21 02:25: Lactic Acid Level 1.98 Objective Exam Last Set of Vital Signs Vital Signs Date Time Temp Pulse Resp B/P (MAP) Pulse Ox O2 Delivery O2 Flow Rate FiO2 09/09/21 08:00 35.7 09/09/21 06:23 60 23 92 90.00 09/09/21 06:00 133/55 NIV Bilevel 09/09/21 04:17 90 Capillary Refill : I&O Intake and Output 09/09/21 00:00 Intake Total 410 ml Output Total 2675 ml Balance -2265 ml Intake Oral 410 ml Output Urine Total 2675 ml General: Alert, Oriented X3 HEENT: Atraumatic, PERRLA, Other (Using BIPAP mask) Neck: Supple, No JVD Lungs: Clear to Auscultation, Normal Air Movement Heart: Regular Rate, Normal S1, Normal S2 Abdomen: Normal Bowel Sounds, Soft Extremities: No Clubbing, No Cyanosis Skin: No Rashes, No Breakdown Neuro: Normal Gait, Normal Speech Psych/Mental Status: Mental Status NL Results Lab Laboratory Tests 09/08/21 10:50: Sodium Level 141, Potassium Level 4.3, Chloride Level 114#H, Carbon Dioxide Level 18L, Anion Gap 9, Blood Urea Nitrogen 35H, Creatinine 0.99, Estimat Glomerular Filtration Rate 78, BUN/Creatinine Ratio 35, Glucose Level 282H, Calcium Level 6.5L 09/08/21 11:19: Glucometer 285H 09/08/21 15:44: Glucometer 254H 09/08/21 19:59: Glucometer 200H 09/08/21 23:30: Glucometer 152H 09/09/21 03:51: Glucometer 142H 09/09/21 04:00: White Blood Count 5.8, Red Blood Count 4.81, Hemoglobin 13.6, Hematocrit 42, Mean Corpuscular Volume 88, Mean Corpuscular Hemoglobin 28, Mean Corpuscular Hemoglobin Concent 32, Red Cell Distribution Width 14.9H, Platelet Count 201, Mean Platelet Volume 10.6, Immature Granulocyte % (Auto) 1, Neutrophils (%) (Auto) 84H, Lymphocytes (%) (Auto) 10L, Monocytes (%) (Auto) 5, Eosinophils (%) (Auto) 0, Basophils (%) (Auto) 0, Neutrophils # (Auto) 4.9, Lymphocytes # (Auto) 0.6L, Monocytes # (Auto) 0.3, Eosinophils # (Auto) 0.0, Basophils # (Auto) 0.0, Immature Granulocyte # (Auto) 0.0, Blood Gas Puncture Site RIGHT RADIAL, Blood Gas Patient Temperature 36, Arterial Blood pH 7.35L, Arterial Blood Partial Pressure CO2 46H, Arterial Blood Partial Pressure O2 61L, Arterial Blood HCO3 25, Arterial Blood Total CO2 26.5, Arterial Blood Oxygen Saturation 92L, Arterial Blood Base Excess -0.1, Josiah Test POSITIVE, Blood Gas Ventilator Setting NO, Blood Gas Inspired Oxygen 90% BIPAP, Sodium Level 138, Potassium Level 4.7, Chloride Level 106, Carbon Dioxide Level 24, Anion Gap 8, Blood Urea Nitrogen 34H, Creatinine 1.02, Estimat Glomerular Filtration Rate 75, BUN/Creatinine Ratio 33, Glucose Level 138H, Calcium Level 7.9L, Corrected Calcium 8.8, Phosphorus Level 2.8, Magnesium Level 2.6H, Total Bilirubin 0.4, Aspartate Amino Transf (AST/SGOT) 17, Alanine Aminotransferase (ALT/SGPT) 15, Alkaline Phosphatase 49, Total Protein 5.8L, Albumin 2.9L, Triglycerides Level 255H 09/09/21 07:48: Glucometer 156H Microbiology 09/08/21 MRSA Screen - Final, Complete MRSA not isolated Assessment/Plan Assessment/Plan Assess & Plan/Chief Complaint Acute Hypoxic Respiratory Failure COVID-19 + 09/06/2021 Respiratory Acidosis APOORVA requiring CPAP Increased BMI (42.4) Smoker Hyponatremia possibly secondary to hyperglycemia Hyperkalemia CAD with Coronary Stent Placement Acute Kidney Injury Hyperglycemia Uncontrolled DM type 2 (A1c = 14) Possible CKD secondary to type 2 DM High risk intubation/actemra with picc line placement BiPAP, Continue to wean as tolerated s/p Actemra Continue to Monitor Respiratory status. If respiratory status continues to decline, patient will require intubation Decadron Lovenox Cardiac Diet Repeat labs in AM Continue IV Fluids, Normal saline. Continue AM x-ray Patient continues to improve. Will switch between vapotherm and bipap as tolerated Clinical Quality Measures Admission Status Admission Dx Acute Hypoxic Respiratory Failure COVID-19 + 09/06/2021 Respiratory Acidosis APOORVA requiring CPAP Increased BMI (42.4) Smoker Hyponatremia possibly secondary to hyperglycemia Hyperkalemia CAD with Coronary Stent Placement Acute Kidney Injury Hyperglycemia Uncontrolled DM type 2 (A1c = 14) Possible CKD secondary to type 2 DM High risk intubation/actemra with picc line placement Continue to Monitor Respiratory status. If respiratory status continues to decline, patient will require intubation Cardiac Diet Repeat labs in AM Hyperkalemia protocol (albuterol, insulin, calcium gluconate) Continue IV Fluids, Normal saline. Discontinue Metformin due to RANDALL, hypoxemia, and acidosis SELINA MAYFIELD DO 09/10/21 0526: Subjective Subjective/Events-last exam Pt is doing a lot better today Actemra seems to be helping Cefepime will be on board for several days No more pressure therapy required Kayexalate resolved the hyperkalemian, kidney function is now with creatinine 1.62 BiPAP dependent but switched over to Vapotherm and looks really good Lungs are diminished Seems to have a little better humor today Review of Systems General: Fatigue, Malaise Pulmonary: Dyspnea Objective Exam General: Alert, Oriented X3, Cooperative, No Acute Distress Lungs: Clear to Auscultation, Normal Air Movement Heart: Regular Rate, Normal S1, Normal S2, No Murmurs Psych/Mental Status: Mental Status NL, Mood NL Assessment/Plan Assessment/Plan Assess & Plan/Chief Complaint Vapotherm as tolerated Bipap at night Sugar management Supervisory-Addendum Brief Verification & Attestation Participated in pt care: history, MDM, physical Personally performed: exam, history, MDM, supervision of care Care discussed with: Medical Student Procedures: n/a Results interpretation: Verified all documentation Verification and Attestation of Medical Student E/M Service A medical student performed and documented this service in my presence. I reviewed and verified all information documented by the medical student and made modifications to such information, when appropriate. I personally performed the physical exam and medical decision making. Selina Mayfield, Sep 10, 2021,05:25 MARNI RONQUILLO Sep 09, 2021 08:51 SELINA MAYFIELD DO Sep 10, 2021 05:26
[2021-09-09] MEDS: PANTOPRAZOLE 40 MG (PROTONIX) VIAL IV SCH (08:53)
[2021-09-09] MEDS: ACYCLOVIR 400 MG TABLET (ZOVIRAX) PO SCH ×2 (08:53→20:40)
[2021-09-09] MEDS: PRASUGREL 10 MG (EFFIENT) TABLET PO SCH (08:53)
[2021-09-09] MEDS: NS IV 1000 ML 1,000 ML IV SCH ×2 (09:15→16:30)
--- NOTE | 2021-09-09 11:23 | Occupational Ther Daily Note ---
OT Current Status-Daily Note Subjective Pt in bed, requests to get up to recliner. Agreeable to OT Tx. Mental Status/Objective Patient Orientation: Person, Place, Time, Situation Attachments: Tovar Catheter, IV, Oxygen (Vapotherm), Telemetry ADL-Treatment Therapy Code Descriptions/Definitions Functional Evans Measure: 0=Not Assessed/NA 4=Minimal Assistance 1=Total Assistance 5=Supervision or Setup 2=Maximal Assistance 6=Modified Evans 3=Moderate Assistance 7=Complete IndependenceSCALE: Activities may be completed with or without assistive devices. 2-Fkbetclpjw-ksetbfo completes the activity by him/herself with no assistance from a helper. 5-Set-up or Clean-up Assistance-helper sets up or cleans up; patient completes activity. [place] assists only prior to or following the activity. 4-Supervision or Touching Assistance-helper provides verbal cues and/or touching/steadying and/or contact guard assistance as patient completes activity. Assistance may be provided throughout the activity or intermittently. 3-Partial/Moderate Assistance-helper does LESS THAN HALF the effort. [place] lifts, holds or supports trunk or limbs, but provides less than half the effort. 2-Substantial/Maximal Assistance-helper does MORE THAN HALF the effort. [place] lifts or holds trunk or limbs and provides more than half the effort. 7-Gxjmzbnsn-pzwdrp does ALL the effort. Patient does none of the effort to complete the activity. Or, the assistance of 2 or more helpers is required for the patient to complete the activity. If activity was not attempted, code reason: 7-Patient Refused. 9-Not Applicable-not attempted and the patient did not perform the activity before the current illness, exacerbation or injury. 10-Not Attempted due to Environmental Limitations-(lack of equipment, weather restraints, etc.). 88-Not Attempted due to Medical Conditions or Safety Concerns. Eating (QC): 6 (Per pt report) Other Treatment Pt in bed, transferred supine to sit independently. OT managed lines and pt transferred to recliner, SBA. Pt positioned to comfort in recliner, pt's O2 saturation dropped to 85% but increased into the low 90%'s after about 30 seconds. Pt declines further tasks as he is fatigued. OT encouraged pt to complete UE exercises throughout the day as he has more energy, including shoulder flexion, elbow flexion/extension and front punch. Pt verbalized understanding. Post tx, pt in recliner, call light in reach and all needs met. Nurse aware of pt's position. Education OT Patient Education: Correct positioning, Energy conservation, Exercise program, Modified ADL techniques, Progress toward Goal/Update tx plan, Purpose of tx/functional activities, Rehab process Teaching Recipient: Patient Teaching Methods: Discussion Response to Teaching: Verbalize Understanding OT Fdc Goals Fdc Goals Time Frame: Sep 25, 2021 Eating (QC): 6 Oral Hygiene (QC): 6 Toileting Hygiene (QC): 6 Shower/Bathe Self (QC): 6 Upper Body Dressing (QC): 6 Lower Body Dressing (QC): 6 On/Off Footwear (QC): 6 Additional Goals: 1-Demonstrate ADL Tasks, 2-Verbalize Understanding, 3- ImproveStrength/Cris 1=Demonstrate adherence to instructed precautions during ADL tasks. 2=Patient will verbalize/demonstrate understanding of assistive devices/mo difications for ADL. 3=Patient will improve strength/tolerance for activity to enable patient to perform ADL's. OT Education/Plan Problem List/Assessment Assessment: Decreased Activ Tolerance, Decreased UE Strength, Impaired Funct Balance, Impaired I ADL's, Impaired Self-Care Skills Discharge Recommendations Plan/Recommendations: Continue POC Treatment Plan/Plan of Care Patient would benefit from OT for education, treatment and training to promote independence in ADL's, mobility, safety and/or upper extremity function for ADL's. Plan of Care: ADL Retraining, Functional Mobility, UE Funct Exercise/Act Treatment Duration: Sep 25, 2021 Frequency: 3 times per week (3-5 times a week) Rehab Potential: Guarded Time/GCodes Start Time: 10:18 Stop Time: 10:28 Total Time Billed (hr/min): 10 Billed Treatment Time 1, ISAIAH TRUDY DAVILA OT Sep 09, 2021 11:23
--- NOTE | 2021-09-09 12:38 | Tele-ICU Progress Note ---
Subjective Date Seen by a Provider: Sep 09, 2021 Time Seen by a Provider: 12:38 Sepsis Event Evaluation Height, Weight, BMI Height: 6'1.00" Weight: 324lbs. 0.0oz. 146.651465ia; 42.42 BMI Method:Stated Focused Exam Lactate Level 09/07/21 02:25: Lactic Acid Level 1.98 Exam Exam Patient acknowledged, consented, and participated in this virtual visit which was conducted using real time audio/video Vital Signs Date Time Temp Pulse Resp B/P (MAP) Pulse Ox O2 Delivery O2 Flow Rate FiO2 09/09/21 12:00 75 163/82 91 Vapotherm 40.00 100.00 09/09/21 12:00 Vapotherm 40.00 100 09/09/21 11:47 35.8 09/09/21 11:00 72 26 148/76 92 Vapotherm 40.00 100.00 09/09/21 10:44 90 Vapotherm 40.00 100 09/09/21 10:00 64 28 161/121 93 Vapotherm 40.00 100.00 09/09/21 09:00 68 20 142/75 91 Vapotherm 40.00 100.00 09/09/21 09:00 Vapotherm 40.00 100.00 09/09/21 08:00 35.7 09/09/21 08:00 NIV Bilevel 90 09/09/21 08:00 63 29 128/79 94 NIV Bilevel 90.00 09/09/21 07:00 62 12 144/79 92 NIV Bilevel 90.00 09/09/21 07:00 64 09/09/21 06:23 60 23 92 90.00 09/09/21 06:00 63 23 133/55 92 NIV Bilevel 90.00 09/09/21 05:00 55 22 123/62 91 NIV Bilevel 90.00 09/09/21 04:17 NIV Bilevel 90 09/09/21 04:16 36.0 09/09/21 04:00 62 19 138/80 92 NIV Bilevel 90.00 09/09/21 03:15 NIV Bilevel 90.00 09/09/21 03:11 66 27 91 90.00 09/09/21 03:00 65 24 113/45 97 NIV Bilevel 100.00 09/09/21 02:00 64 18 118/63 90 NIV Bilevel 100.00 09/09/21 01:00 83 09/09/21 01:00 83 25 123/77 93 NIV Bilevel 100.00 09/09/21 00:16 NIV Bilevel 100 09/09/21 00:00 66 20 138/76 91 NIV Bilevel 100.00 09/09/21 00:00 36.1 09/08/21 23:30 69 125/53 90 NIV Bilevel 100.00 09/08/21 23:00 70 23 128/87 93 NIV Bilevel 100.00 09/08/21 22:46 66 14 95/67 94 NIV Bilevel 100.00 09/08/21 21:23 79 23 91 100.00 09/08/21 21:00 75 25 133/81 94 NIV Bilevel 100.00 09/08/21 20:11 94 NIV Bilevel 100 09/08/21 20:08 71 20 125/104 92 NIV Bilevel 100.00 09/08/21 20:07 67 17 125/104 93 NIV Bilevel 100.00 09/08/21 20:00 35.7 09/08/21 19:30 73 24 123/83 94 NIV Bilevel 100.00 09/08/21 19:00 73 09/08/21 18:40 80 23 92 100.00 09/08/21 18:05 72 22 138/88 94 NIV Bilevel 88.00 100.00 09/08/21 17:46 74 139/84 09/08/21 17:00 74 24 139/84 90 NIV Bilevel 88.00 100.00 09/08/21 16:10 NIV Bilevel 100 09/08/21 16:00 68 27 110/90 89 NIV Bilevel 88.00 100.00 09/08/21 16:00 35.8 09/08/21 15:01 73 20 91 100.00 09/08/21 15:00 74 20 124/97 91 NIV Bilevel 88.00 100.00 09/08/21 13:04 35.6 78 24 111/87 100 NIV Bilevel 88.00 100.00 09/08/21 13:00 89 23 119/72 87 NIV Bilevel 90.00 09/08/21 13:00 67 I & O 09/09/21 07:00 Intake Total 460 ml Output Total 2375 ml Balance -1915 ml Height & Weight Height: 6'1.00" Weight: 324lbs. 0.0oz. 146.275136gf; 42.42 BMI Method:Stated General Appearance: WD/WN, Chronically ill, Mild Distress, Obese HEENT: PERRL/EOMI, Normal ENT Inspection, Pharynx Normal Neck: Full Range of Motion, Normal Inspection, Non Tender, Supple, Carotid Bruit Respiratory: Chest Non Tender, Lungs Clear, No Accessory Muscle Use, No Respiratory Distress, Decreased Breath Sounds, Other (Using bipap) Cardiovascular: Regular Rate, Rhythm, No Edema, No Gallop, No JVD, No Murmur, Normal Peripheral Pulses Extremity: Normal Capillary Refill, Normal Inspection, Normal Range of Motion, Non Tender, No Calf Tenderness, No Pedal Edema Neurologic/Psychiatric: Alert, Oriented x3, No Motor/Sensory Deficits, Normal Mood/Affect Skin: Normal Color, Warm/Dry Lymphatic: No Adenopathy Results Lab Laboratory Tests 09/08/21 04:15 09/08/21 10:50 09/09/21 04:00 Assessment/Plan Assessment/Plan (Tele-ICU Physician , Progress Note ) Available chart/ vitals / labs / Images reviewed Video assessment done using teleICU camera, rest of exam as per RN Discussed with RN , EXAM PER RN Events overnight : Afebrile FiO2 - I/O = Drips: Pressors: OFF LERVO , hemodynamically stable Consultants: Hospital course: 09/07 - tranfer COVID PNA , BiPAP / 85% A/P Acute Covid19 pneumonia -decadron iv -actemra 09/07, acyclovir Possible bact PNA - z-max = cefepime Acute hypoxic respiratory failure, hypercatrbic on admission - cont BIPAP , VT if tolerates Hypotension - off levo RANDALL - improved Hyperkalemia probably due to combination of steroids and AMADEO inhibitor's. - resolved COPD - nebs , steroids CPAP at home - cont noctural Lines : (Central Line Necessity Reviewed) Tovar: OG: Nutrition: po Analgesia: Anxiety/ delirium VTE Prophylaxis: Stress Ulcer Prophylaxis: taiwo 40 Glycemic Control: Plans in collaboration with bedside consultants and IM MDs. Discussed with RN to reach out if any questions or concerns A total of 33 minutes of critical care time was devoted to this patient today, required to treat and/or prevent further deterioration of critical care condition ( as above) . RASHI LOPEZ MD Sep 09, 2021 12:38
--- NOTE | 2021-09-09 15:28 | Physical Therapy Progress Note ---
Therapy Progress Note Pt asleep upon entering and SLAGGER is unable to awaken at this time. Vitals being monitored and PT will check back on pt tomorrow for continued tx. SHERYL MCPHERSON SLAGGER Sep 09, 2021 15:28
[2021-09-09] MEDS: AZITHROMYCIN INJECTION 500 MG in NS (IVPB) 250 ML IV SCH (17:57)
[2021-09-09 22:05] VITALS: BP 161/77
[2021-09-10] MEDS: CEFEPIME 1,000 MG/NS 50 ML IVPB IV SCH ×8 (00:33→17:50)
[2021-09-10] MEDS: fentaNYL DRIP PRE-MIX 250 ML IV SCH (00:39)
[2021-09-10] MEDS: inSUlin ASPART (NovoLOG) 1 UNIT/0.01 ML (CHARGE PER UNIT) SQ SCH ×9 (00:39→21:01)
[2021-09-10] MEDS: RT-ALBUTEROL HFA 8.5 GM INHALER IH SCH ×5 (02:25→21:36)
[2021-09-10 02:26] VITALS: BP 141/75
[2021-09-10] MEDS: NS IV 1000 ML 1,000 ML IV SCH ×2 (03:14→08:59)
[2021-09-10 04:25] LABS: BASOPHILS % (AUTO) 0 % (0-10); EOSINOPHILS % (AUTO) 0 % (0-10); HEMATOCRIT 42 % (40-54); HEMOGLOBIN 13.4 g/dL (13.3-17.7); LYMPHOCYTES # (AUTO) 0.7 10^3/uL (1.0-4.0); LYMPHOCYTES % (AUTO) 10 % (12-44); MEAN CORPUSCULAR HEMOGLOBIN 28 pg (25-34); MEAN CORPUSCULAR HGB CONC 32 g/dL (32-36); MEAN CORPUSCULAR VOLUME 88 fL (80-99); MEAN PLATELET VOLUME 10.6 fL (9.0-12.2); MONOCYTES # (AUTO) 0.4 10^3/uL (0.0-1.0); MONOCYTES % (AUTO) 7 % (0-12); NEUTROPHILS # (AUTO) 5.3 10^3/uL (1.8-7.8); NEUTROPHILS % (AUTO) 82 % (42-75); PLATELET COUNT 207 10^3/uL (130-400); WHITE BLOOD COUNT 6.5 10^3/uL (4.3-11.0)
[2021-09-10 04:34] LABS: POTASSIUM 4.6 MMOL/L (3.6-5.0)
[2021-09-10 04:36] LABS: CALCIUM 7.9 MG/DL (8.5-10.1)
[2021-09-10 04:37] LABS: TOTAL PROTEIN 5.8 GM/DL (6.4-8.2)
[2021-09-10 04:38] LABS: BILIRUBIN,TOTAL 0.5 MG/DL (0.1-1.0)
[2021-09-10 04:40] LABS: CREATININE SERUM 1.06 MG/DL (0.60-1.30); PHOSPHORUS 2.7 MG/DL (2.3-4.7)
[2021-09-10 04:43] LABS: MAGNESIUM 2.5 MG/DL (1.6-2.4)
[2021-09-10] MEDS: POTASSIUM CL 10MEQ/50ML IVPB 50 ML IV SCH (05:03)
[2021-09-10] MEDS: KCL 20 MEQ TAB (K-DUR) PO SCH (05:04)
[2021-09-10] MEDS: MAGNESIUM 1 GM/100 ML IVPB 100 ML IV SCH (05:04)
[2021-09-10] MEDS: ENOXAPARIN 40 MG/0.4 ML (LOVENOX) SYR SC SCH ×2 (05:20→17:51)
--- NOTE | 2021-09-10 06:08 | Diagnostic Imaging Report ---
INDICATION: Pneumonia. Hypoxia. Respiratory failure. COMPARISON: 09/09/2021 FINDINGS: Single frontal radiograph view of the chest was obtained and demonstrates interval progression of scattered patchy and confluent infiltrates throughout the right lung. Persistent infiltrate is again noted on the left. Small effusions may be obscured. There is no pneumothorax. Cardiac silhouette remains enlarged. Right upper extremity PICC line is seen with tip in the low SVC. Osseous structures show no new acute abnormality. IMPRESSION: 1. Bilateral infiltrate. There has been interval progression on the right. 2. Moderate cardiomegaly. Dictated by: Dictated on workstation # [id number]
[2021-09-10] MEDS: PRASUGREL 10 MG (EFFIENT) TABLET PO SCH (08:58)
[2021-09-10] MEDS: ACYCLOVIR 400 MG TABLET (ZOVIRAX) PO SCH ×2 (08:58→21:02)
[2021-09-10] MEDS: PANTOPRAZOLE 40 MG (PROTONIX) VIAL IV SCH (08:59)
[2021-09-10] MEDS: NOREPINEPHRINE 8 MG/250 ML 250 ML IV SCH (10:09)
[2021-09-10 11:58] LABS: ABG BASE EXCESS -0.9 MMOL/L (-2.5-2.5); ABG OXYGEN SATURATION 95 % (94-100); ABG PCO2 38 MMHG (35-45); ABG PO2 60 MMHG (79-93); ABG TCO2 24.8 MMOL/L (21.0-31.0); ALLENS TEST YES-POS; INSPIRED O2 100%
[2021-09-10 11:59] LABS: PATIENT TEMP 35.5; VENTILATOR NO
--- NOTE | 2021-09-10 12:04 | Tele-ICU Progress Note ---
Subjective Date Seen by a Provider: Sep 10, 2021 Time Seen by a Provider: 10:17 Sepsis Event Evaluation Height, Weight, BMI Height: 6'1.00" Weight: 324lbs. 0.0oz. 146.094853aq; 42.42 BMI Method:Stated Exam Exam Patient acknowledged, consented, and participated in this virtual visit which was conducted using real time audio/video Vital Signs Date Time Temp Pulse Resp B/P (MAP) Pulse Ox O2 Delivery O2 Flow Rate FiO2 09/10/21 11:37 35.2 09/10/21 11:00 56 25 172/106 100 Vapotherm 40.00 100.00 09/10/21 10:28 Vapotherm 40.00 100 09/10/21 10:09 66 156/102 09/10/21 10:00 60 28 146/83 100 Vapotherm 40.00 100.00 09/10/21 09:00 66 28 156/102 98 Vapotherm 40.00 100.00 09/10/21 08:30 Vapotherm 40.00 100.00 09/10/21 08:00 57 31 140/93 94 NIV Bilevel 90.00 09/10/21 07:53 35.2 09/10/21 07:00 59 09/10/21 07:00 59 28 141/87 94 NIV Bilevel 90.00 09/10/21 06:00 63 30 146/95 90 NIV Bilevel 90.00 09/10/21 05:00 54 16 159/96 92 NIV Bilevel 90.00 09/10/21 04:00 NIV Bilevel 90 09/10/21 04:00 35.9 09/10/21 04:00 61 29 132/70 90 NIV Bilevel 90.00 09/10/21 03:00 58 25 151/86 95 NIV Bilevel 90.00 09/10/21 02:26 62 22 94 90.00 09/10/21 02:00 54 27 141/75 92 NIV Bilevel 90.00 09/10/21 01:00 58 30 153/92 93 NIV Bilevel 90.00 09/10/21 01:00 60 09/10/21 00:00 35.6 09/10/21 00:00 62 24 145/86 92 NIV Bilevel 90.00 09/09/21 23:59 NIV Bilevel 90 09/09/21 23:00 64 19 147/65 93 NIV Bilevel 90.00 09/09/21 22:05 63 31 92 90.00 09/09/21 22:00 66 28 161/77 94 NIV Bilevel 90.00 09/09/21 21:00 85 29 160/86 92 NIV Bilevel 90.00 09/09/21 21:00 NIV Bilevel 90.00 09/09/21 20:00 35.8 09/09/21 20:00 Vapotherm 40.00 100 09/09/21 20:00 80 27 92 Vapotherm 40.00 100.00 09/09/21 19:00 69 27 126/75 92 Vapotherm 40.00 100.00 09/09/21 19:00 87 09/09/21 18:59 93 Vapotherm 40.00 100 09/09/21 18:00 80 22 144/80 91 Vapotherm 40.00 100.00 09/09/21 17:00 62 19 114/86 97 NIV Bilevel 90.00 09/09/21 16:00 NIV Bilevel 90 09/09/21 16:00 35.8 09/09/21 16:00 84 23 141/81 91 NIV Bilevel 90.00 09/09/21 15:00 NIV Bilevel 90.00 09/09/21 15:00 66 21 137/74 96 NIV Bilevel 90.00 09/09/21 14:31 91 Vapotherm 40.00 100 09/09/21 14:00 69 104/71 91 Vapotherm 40.00 100.00 09/09/21 13:00 74 09/09/21 13:00 77 30 121/61 91 Vapotherm 40.00 100.00 I & O 09/10/21 06:59 Intake Total 3605 ml Output Total 2100 ml Balance 1505 ml Height & Weight Height: 6'1.00" Weight: 324lbs. 0.0oz. 146.183050it; 42.42 BMI Method:Stated General Appearance: WD/WN, Chronically ill, Mild Distress, Obese HEENT: PERRL/EOMI, Normal ENT Inspection, Pharynx Normal Neck: Full Range of Motion, Normal Inspection, Non Tender, Supple, Carotid Bruit Respiratory: Chest Non Tender, Lungs Clear, No Accessory Muscle Use, No Respiratory Distress, Decreased Breath Sounds, Other (Using bipap) Cardiovascular: Regular Rate, Rhythm, No Edema, No Gallop, No JVD, No Murmur, Normal Peripheral Pulses Extremity: Normal Capillary Refill, Normal Inspection, Normal Range of Motion, Non Tender, No Calf Tenderness, No Pedal Edema Neurologic/Psychiatric: Alert, Oriented x3, No Motor/Sensory Deficits, Normal Mood/Affect Skin: Normal Color, Warm/Dry Lymphatic: No Adenopathy Results Lab Laboratory Tests 09/09/21 04:00 09/10/21 04:15 Assessment/Plan Assessment/Plan (Tele-ICU Physician , Progress Note ) Available chart/ vitals / labs / Images reviewed Video assessment done using teleICU camera, rest of exam as per RN Discussed with RN , EXAM PER RN Events overnight : Afebrile FiO2 - I/O = Drips: Pressors: OFF LEVO , hemodynamically stable Consultants: Hospital course: 09/07 - tranfer COVID PNA , BiPAP 18/12 85% A/P Acute Covid19 pneumonia -decadron iv -actemra 09/07, acyclovir - check ddimer 09/11 - decrease IVF rate to 50 Possible bact PNA - z-max = cefepime ( left PNA ) Acute hypoxic respiratory failure, hypercatrbic on admission - cont BIPAP , VT if tolerates 40/ 100% - recheck abg on VT Hypotension - off levo RANDALL - improved Hyperkalemia probably due to combination of steroids and AMADEO inhibitor's. - resolved COPD - nebs , steroids CPAP at home - cont noctural Lines : (Central Line Necessity Reviewed) Tovar: OG: Nutrition: po Analgesia: Anxiety/ delirium VTE Prophylaxis: Stress Ulcer Prophylaxis: taiwo 40 Glycemic Control: Plans in collaboration with bedside consultants and IM MDs. Discussed with RN to reach out if any questions or concerns A total of 33 minutes of critical care time was devoted to this patient today, required to treat and/or prevent further deterioration of critical care condition ( as above) .(Tele-ICU Physician , Progress Note ) Available chart/ vitals / labs / Images reviewed Video assessment done using teleICU camera, rest of exam as per RN Discussed with RN , EXAM PER RN Events overnight : Afebrile FiO2 - I/O = Drips: Pressors: OFF LEVO , hemodynamically stable Consultants: Hospital course: 09/07 - tranfer COVID PNA , BiPAP 18/12 85% A/P Acute Covid19 pneumonia -decadron iv -actemra 09/07, acyclovir - check ddimer 09/11 - decrease IVF rate to 50 Possible bact PNA - z-max = cefepime ( left PNA ) Acute hypoxic respiratory failure, hypercatrbic on admission - cont BIPAP , VT if tolerates 40/ 100% - recheck abg on VT Hypotension - off levo RANDALL - improved Hyperkalemia probably due to combination of steroids and AMADEO inhibitor's. - resolved COPD - nebs , steroids CPAP at home - cont noctural Lines : (Central Line Necessity Reviewed) Tovar: OG: Nutrition: po Analgesia: Anxiety/ delirium VTE Prophylaxis: Stress Ulcer Prophylaxis: taiwo 40 Glycemic Control: Plans in collaboration with bedside consultants and IM MDs. Discussed with RN to reach out if any questions or concerns A total of 33 minutes of critical care time was devoted to this patient today, required to treat and/or prevent further deterioration of critical care condition ( as above) . RASHI LOPEZ MD Sep 10, 2021 12:04
--- NOTE | 2021-09-10 12:24 | Progress Note ---
ALONDRA ELDER 09/10/21 1224: Subjective Date Seen by a Provider: Sep 10, 2021 Time Seen by a Provider: 12:30 Subjective/Events-last exam Patient is alert, sitting up, and pleasant. Reports that his breathing is better/the same as yesterday. He is tolerating the BiPAP well since switching from vapotherm this morning. His last BM was yesterday, states that he does well getting up to use the commode. Denies trouble with urination. Eating and drinking well. Labs display unremarkable change since yesterday Potassium is 4.6 AB.4//60 CXR showed bilateral infiltrates with interval progression on the right Review of Systems HEENT: No Head Aches Pulmonary: No Dyspnea, No Cough Cardiovascular: No: Chest Pain, Edema Gastrointestinal: No: Nausea, Vomiting, Abdominal Pain, Diarrhea Objective Exam Last Set of Vital Signs Vital Signs Date Time Temp Pulse Resp B/P (MAP) Pulse Ox O2 Delivery O2 Flow Rate FiO2 09/10/21 11:37 35.2 09/10/21 11:00 56 25 172/106 100 Vapotherm 40.00 100.00 09/10/21 10:28 100 Capillary Refill : I&O Intake and Output 09/10/21 00:00 Intake Total 2955 ml Output Total 2025 ml Balance 930 ml Intake Oral 1600 ml IV Total 1355 ml Output Urine Total 2025 ml General: Alert, Cooperative, No Acute Distress HEENT: Atraumatic Lungs: Clear to Auscultation, Other (decreased air movement throughout) Heart: Regular Rate, No Murmurs Abdomen: Normal Bowel Sounds, Soft, No Tenderness Extremities: No Edema, Normal Pulses (radial pulse +2 bilaterally) Neuro: Normal Speech Results Lab Laboratory Tests 09/09/21 16:40: Glucometer 317H 09/09/21 20:14: Glucometer 329H 09/10/21 00:32: Glucometer 263H 09/10/21 04:15: White Blood Count 6.5, Red Blood Count 4.74, Hemoglobin 13.4, Hematocrit 42, Mean Corpuscular Volume 88, Mean Corpuscular Hemoglobin 28, Mean Corpuscular Hemoglobin Concent 32, Red Cell Distribution Width 14.8H, Platelet Count 207, Mean Platelet Volume 10.6, Immature Granulocyte % (Auto) 1, Neutrophils (%) (Auto) 82H, Lymphocytes (%) (Auto) 10L, Monocytes (%) (Auto) 7, Eosinophils (%) (Auto) 0, Basophils (%) (Auto) 0, Neutrophils # (Auto) 5.3, Lymphocytes # (Auto) 0.7L, Monocytes # (Auto) 0.4, Eosinophils # (Auto) 0.0, Basophils # (Auto) 0.0, Immature Granulocyte # (Auto) 0.1, Sodium Level 137, Potassium Level 4.6, Chloride Level 105, Carbon Dioxide Level 23, Anion Gap 9, Blood Urea Nitrogen 30H, Creatinine 1.06, Estimat Glomerular Filtration Rate 72, BUN/Creatinine Ratio 28, Glucose Level 204H, Calcium Level 7.9L, Corrected Calcium 8.7, Phosphorus Level 2.7, Magnesium Level 2.5H, Total Bilirubin 0.5, Aspartate Amino Transf (AST/SGOT) 18, Alanine Aminotransferase (ALT/SGPT) 17, Alkaline Phosphatase 53, Total Protein 5.8L, Albumin 3.0L 09/10/21 07:35: Glucometer 147H 09/10/21 11:15: D-Dimer 0.58H, Blood Gas Puncture Site LT RAD, Blood Gas Patient Temperature 35.5, Arterial Blood pH 7.40, Arterial Blood Partial Pressure CO2 38, Arterial Blood Partial Pressure O2 60L, Arterial Blood HCO3 24, Arterial Blood Total CO2 24.8, Arterial Blood Oxygen Saturation 95, Arterial Blood Base Excess -0.9, Josiah Test YES-POS, Blood Gas Ventilator Setting NO, Blood Gas Inspired Oxygen 100% 09/10/21 11:24: Glucometer 136H Microbiology 09/08/21 MRSA Screen - Final, Complete MRSA not isolated Assessment/Plan Assessment/Plan Assess & Plan/Chief Complaint Assessment: Acute Hypoxic Respiratory Failure COVID-19 + 09/06/2021 Respiratory Acidosis APOORVA requiring CPAP Increased BMI (42.4) Smoker Hyponatremia possibly secondary to hyperglycemia Hyperkalemia CAD with Coronary Stent Placement Acute Kidney Injury Hyperglycemia Uncontrolled DM type 2 (A1c = 14) Possible CKD secondary to type 2 DM High risk intubation/actemra with picc line placement Plan: BiPAP, Continue to wean as tolerated s/p Actemra Continue to Monitor Respiratory status. If respiratory status continues to decline, patient will require intubation Continue decadron Continue lovenox Cardiac Diet Repeat labs in AM Continue IV Fluids, Normal saline. Continue AM x-ray Patient continues to improve. Will switch between vapotherm and bipap as tolerated SELINA MAYFIELD DO 09/11/21 0543: Subjective Subjective/Events-last exam Pt doing a little better. Alternating from BiPAP to Vapotherm Chest X-ray is a bit worse Cefepime and Azithromycin and Decadron maintained Eating and drinking well Overall doing much better I updated him on the usual time course of COVID Review of Systems Pulmonary: Dyspnea Objective Exam General: Alert, Oriented X3, Cooperative, No Acute Distress Lungs: Clear to Auscultation, Normal Air Movement Heart: Regular Rate, Normal S1, Normal S2, No Murmurs Psych/Mental Status: Mental Status NL, Mood NL Assessment/Plan Assessment/Plan Assess & Plan/Chief Complaint Continue aggressive treatment Improved today Wean O2 as tolerated Supervisory-Addendum Brief Verification & Attestation Participated in pt care: history, MDM, physical Personally performed: exam, history, MDM, supervision of care Care discussed with: Medical Student Procedures: n/a Results interpretation: Verified all documentation Verification and Attestation of Medical Student E/M Service A medical student performed and documented this service in my presence. I reviewed and verified all information documented by the medical student and made modifications to such information, when appropriate. I personally performed the physical exam and medical decision making. Selina Mayfield, Sep 11, 2021,05:41 ALONDRA ELDER Sep 10, 2021 12:24 SELINA MAYFIELD DO Sep 11, 2021 05:43
--- NOTE | 2021-09-10 12:53 | Occupational Ther Daily Note ---
OT Current Status-Daily Note Subjective Pt alert, sitting in recliner. Pt agrees to therapy. Pt hopes to go home very soon. Mental Status/Objective Patient Orientation: Person, Place, Time, Situation Attachments: IV, Oxygen (Vapotherm 40/100) ADL-Treatment Pt able to don/doff sock independently. Pt stated that he has been doing sit to stands independently from recliner. Therapy Code Descriptions/Definitions Functional [place] Measure: 0=Not Assessed/NA 4=Minimal Assistance 1=Total Assistance 5=Supervision or Setup 2=Maximal Assistance 6=Modified [place] 3=Moderate Assistance 7=Complete IndependenceSCALE: Activities may be completed with or without assistive devices. 5-Ansjsiovwp-jqjrkbc completes the activity by him/herself with no assistance from a helper. 5-Set-up or Clean-up Assistance-helper sets up or cleans up; patient completes activity. [place] assists only prior to or following the activity. 4-Supervision or Touching Assistance-helper provides verbal cues and/or touching/steadying and/or contact guard assistance as patient completes activity. Assistance may be provided throughout the activity or intermittently. 3-Partial/Moderate Assistance-helper does LESS THAN HALF the effort. [place] lifts, holds or supports trunk or limbs, but provides less than half the effort. 2-Substantial/Maximal Assistance-helper does MORE THAN HALF the effort. [place] lifts or holds trunk or limbs and provides more than half the effort. 9-Neakbmpvy-gpddiw does ALL the effort. Patient does none of the effort to complete the activity. Or, the assistance of 2 or more helpers is required for the patient to complete the activity. If activity was not attempted, code reason: 7-Patient Refused. 9-Not Applicable-not attempted and the patient did not perform the activity before the current illness, exacerbation or injury. 10-Not Attempted due to Environmental Limitations-(lack of equipment, weather restraints, etc.). 88-Not Attempted due to Medical Conditions or Safety Concerns. On/Off Footwear: 6 Other Treatment Pt completed 1 set 10 reps of B UE exercises against gravity: shldr abd/add, shldr flexion alternating arms, shldr retraction. Pt tolerated well, requires recovery breaks between each set. After session, pt sitting in recliner with call light/phone in reach. All needs met in room. OT Custodial Goals Custodial Goals Time Frame: Sep 25, 2021 Eating (QC): 6 Oral Hygiene (QC): 6 Toileting Hygiene (QC): 6 Shower/Bathe Self (QC): 6 Upper Body Dressing (QC): 6 Lower Body Dressing (QC): 6 On/Off Footwear (QC): 6 Additional Goals: 1-Demonstrate ADL Tasks, 2-Verbalize Understanding, 3- ImproveStrength/Cris 1=Demonstrate adherence to instructed precautions during ADL tasks. 2=Patient will verbalize/demonstrate understanding of assistive devices/modifications for ADL. 3=Patient will improve strength/tolerance for activity to enable patient to perform ADL's. OT Education/Plan Problem List/Assessment Assessment: Decreased Activ Tolerance, Decreased UE Strength, Impaired Self- Care Skills Discharge Recommendations Plan/Recommendations: Continue POC Treatment Plan/Plan of Care Patient would benefit from OT for education, treatment and training to promote independence in ADL's, mobility, safety and/or upper extremity function for ADL's. Plan of Care: ADL Retraining, Functional Mobility, UE Funct Exercise/Act Treatment Duration: Sep 25, 2021 Frequency: 3 times per week (3-5 times a week) Rehab Potential: Guarded Time/GCodes Start Time: 11:44 Stop Time: 12:00 Total Time Billed (hr/min): 16 Billed Treatment Time 1 visit-FA 1 (16 min) DORA CACERES Sep 10, 2021 12:53
--- NOTE | 2021-09-10 13:46 | Physical Therapy Daily Note ---
PT Daily Note-Current Subjective Patient in recliner pre tx, agrees to PT, has no complaints of pain. Appearance Patient in recliner post tx with nurse call, phone, tray, all needs met. Mental Status Patient Orientation: Person, Place, Situation Attachments: Oxygen, IV Transfers SCALE: Activities may be completed with or without assistive devices. 9-Joiorksold-ivxnasm completes the activity by him/herself with no assistance from a helper. 5-Set-up or Clean-up Assistance-helper sets up or cleans up; patient completes activity. [place] assists only prior to or following the activity. 4-Supervision or Touching Assistance-helper provides verbal cues and/or touching/steadying and/or contact guard assistance as patient completes activity. Assistance may be provided throughout the activity or intermittently. 3-Partial/Moderate Assistance-helper does LESS THAN HALF the effort. [place] lifts, holds or supports trunk or limbs, but provides less than half the effort. 2-Substantial/Maximal Assistance-helper does MORE THAN HALF the effort. [place] lifts or holds trunk or limbs and provides more than half the effort. 5-Xulayojcq-kxoirm does ALL the effort. Patient does none of the effort to complete the activity. Or, the assistance of 2 or more helpers is required for the patient to complete the activity. If activity was not attempted, code reason: 7-Patient Refused. 9-Not Applicable-not attempted and the patient did not perform the activity before the current illness, exacerbation or injury. 10-Not Attempted due to Environmental Limitations-(lack of equipment, weather restraints, etc.). 88-Not Attempted due to Medical Conditions or Safety Concerns. Sit to Stand (QC): 4 SBA Exercises Standing: Heel/toe raises, Marching, Mini squats Standing Reps: 20 Treatments LE strengthening Assessment Current Status: Fair Progress Patient needs seated rest breaks between exercises, O2 drops to about 88% during exercise, it comes back up quickly with rest and purse lip breathing PT Toddler Teacher Goals Half-Way Goals PT Half-Way Goals Time Frame: Sep 19, 2021 Roll Left & Right (QC): 6 Sit to Lying (QC): 6 Lying-Sitting on Side/Bed(QC): 6 Sit to Stand (QC): 6 Chair/Oqg-uv-Fjdlo Xfer(QC): 6 Toilet Transfer (QC): 6 Walk 10 feet (QC): 6 Walk 50ft with 2 Turns (QC): 6 Walk 150 ft (QC): 6 PT Plan Problem List Problem List: Activity Tolerance, Functional Strength, Safety, Balance, Gait, Transfer, Bed Mobility, ROM Treatment/Plan Treatment Plan: Continue Plan of Care Treatment Plan: Bed Mobility, Education, Functional Activity Cris, Functional Strength, Gait, Safety, Therapeutic Exercise, Transfers Treatment Duration: Sep 19, 2021 Frequency: 6 times per week Estimated Hrs Per Day: .25 hour per day Patient and/or Family Agrees t: Yes Safety Risks/Education Patient Education: Correct Positioning, Safety Issues Teaching Recipient: Patient Teaching Methods: Demonstration, Discussion Response to Teaching: Reinforcement Needed Time/GCodes Time In: 1321 Time Out: 1332 Total Billed Treatment Time: 11 Total Billed Treatment 1 visit EX 11' SANTOS WISE PT Sep 10, 2021 13:46
[2021-09-10] MEDS: AZITHROMYCIN INJECTION 500 MG in NS (IVPB) 250 ML IV SCH (17:51)
[2021-09-11] MEDS: NS IV 1000 ML 1,000 ML IV SCH (00:29)
[2021-09-11] MEDS: NOREPINEPHRINE 8 MG/250 ML 250 ML IV SCH ×2 (00:30→10:07)
[2021-09-11] MEDS: fentaNYL DRIP PRE-MIX 250 ML IV SCH (00:31)
[2021-09-11] MEDS: inSUlin ASPART (NovoLOG) 1 UNIT/0.01 ML (CHARGE PER UNIT) SQ SCH ×9 (00:31→20:12)
[2021-09-11] MEDS: CEFEPIME 1,000 MG/NS 50 ML IVPB IV SCH ×8 (00:44→18:01)
[2021-09-11] MEDS: RT-ALBUTEROL HFA 8.5 GM INHALER IH SCH ×6 (01:54→22:15)
[2021-09-11 04:02] LABS: BASOPHILS % (AUTO) 0 % (0-10); EOSINOPHILS % (AUTO) 0 % (0-10); HEMATOCRIT 42 % (40-54); HEMOGLOBIN 13.6 g/dL (13.3-17.7); LYMPHOCYTES # (AUTO) 0.7 10^3/uL (1.0-4.0); LYMPHOCYTES % (AUTO) 9 % (12-44); MEAN CORPUSCULAR HEMOGLOBIN 28 pg (25-34); MEAN CORPUSCULAR HGB CONC 32 g/dL (32-36); MEAN CORPUSCULAR VOLUME 89 fL (80-99); MEAN PLATELET VOLUME 10.7 fL (9.0-12.2); MONOCYTES # (AUTO) 0.5 10^3/uL (0.0-1.0); MONOCYTES % (AUTO) 6 % (0-12); NEUTROPHILS # (AUTO) 6.8 10^3/uL (1.8-7.8); NEUTROPHILS % (AUTO) 84 % (42-75); PLATELET COUNT 215 10^3/uL (130-400)
[2021-09-11 04:24] LABS: ALBUMIN 3.1 GM/DL (3.2-4.5); POTASSIUM 4.5 MMOL/L (3.6-5.0)
[2021-09-11 04:25] LABS: CALCIUM 8.1 MG/DL (8.5-10.1)
[2021-09-11] MEDS: POTASSIUM CL 10MEQ/50ML IVPB 50 ML IV SCH (04:25)
[2021-09-11] MEDS: KCL 20 MEQ TAB (K-DUR) PO SCH (04:26)
[2021-09-11 04:27] LABS: TOTAL PROTEIN 5.8 GM/DL (6.4-8.2)
[2021-09-11 04:29] LABS: BILIRUBIN,TOTAL 0.6 MG/DL (0.1-1.0)
[2021-09-11 04:30] LABS: CREATININE SERUM 0.97 MG/DL (0.60-1.30); PHOSPHORUS 3.2 MG/DL (2.3-4.7)
[2021-09-11 04:33] LABS: MAGNESIUM 2.4 MG/DL (1.6-2.4)
[2021-09-11] MEDS: MAGNESIUM 1 GM/100 ML IVPB 100 ML IV SCH (04:49)
--- NOTE | 2021-09-11 05:47 | Diagnostic Imaging Report ---
REASON FOR EXAMINATION: Pneumonia. Frontal view of the chest was obtained and compared to 09/10/2021. FINDINGS: Heart size remains enlarged with bilateral pulmonary infiltrates consistent with pneumonia. Infiltrate has progressed in the right upper lobe. No effusions or pneumothorax. IMPRESSION: 1. Bilateral left greater than right pulmonary infiltrates with progression of infiltrate in the right upper lobe. Dictated by: Dictated on workstation # [id number]
[2021-09-11] MEDS: ENOXAPARIN 40 MG/0.4 ML (LOVENOX) SYR SC SCH ×2 (06:16→18:02)
[2021-09-11] MEDS: ACYCLOVIR 400 MG TABLET (ZOVIRAX) PO SCH ×2 (09:19→20:12)
[2021-09-11] MEDS: PRASUGREL 10 MG (EFFIENT) TABLET PO SCH (09:19)
[2021-09-11] MEDS: PANTOPRAZOLE 40 MG (PROTONIX) VIAL IV SCH (09:19)
--- NOTE | 2021-09-11 10:47 | Tele-ICU Progress Note ---
Subjective Date Seen by a Provider: Sep 11, 2021 Time Seen by a Provider: 10:47 Sepsis Event Evaluation Height, Weight, BMI Height: 6'1.00" Weight: 324lbs. 0.0oz. [id number]; 42.42 BMI Method:Stated Exam Exam Patient acknowledged, consented, and participated in this virtual visit which was conducted using real time audio/video Vital Signs Date Time Temp Pulse Resp B/P (MAP) Pulse Ox O2 Delivery O2 Flow Rate FiO2 09/11/21 10:14 93 Vapotherm 40.00 100 09/11/21 10:07 56 151/114 09/11/21 10:00 57 21 168/90 93 Vapotherm 40.00 100.00 09/11/21 09:00 56 12 151/114 97 Vapotherm 40.00 100.00 09/11/21 08:00 61 30 148/75 94 Vapotherm 40.00 100.00 09/11/21 07:16 94 Vapotherm 40.00 100 09/11/21 07:00 69 09/11/21 07:00 54 11 93 Vapotherm 40.00 100.00 09/11/21 06:21 Vapotherm 40.00 100.00 09/11/21 06:00 53 20 166/89 97 NIV Bilevel 90.00 09/11/21 05:00 52 18 178/111 90 NIV Bilevel 90.00 09/11/21 04:00 49 23 159/95 92 NIV Bilevel 90.00 09/11/21 04:00 NIV Bilevel 90 09/11/21 03:08 35.9 09/11/21 03:00 69 16 142/107 92 NIV Bilevel 90.00 09/11/21 02:00 48 16 158/95 97 NIV Bilevel 90.00 09/11/21 01:55 50 25 95 90.00 09/11/21 01:00 53 16 163/91 92 NIV Bilevel 90.00 09/11/21 01:00 53 09/11/21 00:00 58 24 143/80 92 NIV Bilevel 90.00 09/10/21 23:59 NIV Bilevel 90 09/10/21 23:38 36.0 09/10/21 23:00 59 18 142/75 90 NIV Bilevel 90.00 09/10/21 22:26 36.6 09/10/21 22:00 59 19 192/110 92 NIV Bilevel 90.00 09/10/21 21:36 61 25 92 90.00 09/10/21 21:29 NIV Bilevel 90.00 09/10/21 21:00 75 26 90 Vapotherm 40.00 100.00 09/10/21 20:00 35.3 09/10/21 20:00 Vapotherm 40.00 100 09/10/21 20:00 63 30 186/97 92 Vapotherm 40.00 100.00 09/10/21 19:00 61 09/10/21 19:00 61 33 126/108 96 Vapotherm 40.00 100.00 09/10/21 18:35 92 Vapotherm 40.00 100 09/10/21 18:00 58 32 170/110 94 Vapotherm 40.00 100.00 09/10/21 17:00 56 194/95 91 Vapotherm 40.00 100.00 09/10/21 16:00 51 23 149/71 92 Vapotherm 40.00 100.00 09/10/21 16:00 35.6 09/10/21 16:00 Vapotherm 40.00 100 09/10/21 15:00 55 19 159/98 94 Vapotherm 40.00 100.00 09/10/21 14:00 52 28 148/80 94 Vapotherm 40.00 100.00 09/10/21 13:00 56 22 160/91 96 Vapotherm 40.00 100.00 09/10/21 12:34 59 09/10/21 12:00 60 27 152/87 97 Vapotherm 40.00 100.00 09/10/21 12:00 Vapotherm 40.00 100 09/10/21 11:37 35.2 09/10/21 11:00 56 25 172/106 100 Vapotherm 40.00 100.00 I & O 09/11/21 07:00 Intake Total 875 ml Output Total 1500 ml Balance -625 ml Height & Weight Height: 6'1.00" Weight: 324lbs. 0.0oz. 146.674245wf; 42.42 BMI Method:Stated General Appearance: WD/WN, Chronically ill, Mild Distress, Obese HEENT: PERRL/EOMI, Normal ENT Inspection, Pharynx Normal Neck: Full Range of Motion, Normal Inspection, Non Tender, Supple, Carotid Bruit Respiratory: Chest Non Tender, Lungs Clear, No Accessory Muscle Use, No Respiratory Distress, Decreased Breath Sounds, Other (Using bipap) Cardiovascular: Regular Rate, Rhythm, No Edema, No Gallop, No JVD, No Murmur, Normal Peripheral Pulses Extremity: Normal Capillary Refill, Normal Inspection, Normal Range of Motion, Non Tender, No Calf Tenderness, No Pedal Edema Neurologic/Psychiatric: Alert, Oriented x3, No Motor/Sensory Deficits, Normal Mood/Affect Skin: Normal Color, Warm/Dry Lymphatic: No Adenopathy Results Lab Laboratory Tests 09/10/21 04:15 09/11/21 03:40 Assessment/Plan Assessment/Plan (Tele-ICU Physician , Progress Note ) Available chart/ vitals / labs / Images reviewed Video assessment done using teleICU camera, rest of exam as per RN Discussed with RN , EXAM PER RN Events overnight : Afebrile FiO2 - I/O = Drips: Pressors: OFF LEVO , hemodynamically stable Consultants: Hospital course: 09/07 - tranfer COVID PNA , BiPAP 22/08 85% 09/11 VT 40L 100% A/P Acute Covid19 pneumonia -decadron iv -actemra 09/07, acyclovir - ddimer 09/11 -0.6 proph dose of lovenox - decrease IVF rate to 50 Possible bact PNA - z-max = cefepime ( left PNA ) Acute hypoxic respiratory failure, hypercatrbic on admission - cont BIPAP , VT if tolerates 40/ 100% - rechecked ABG on VT - no co2 retention - WILL CONT BIPAP AT NIGHT , VT AT DAY TIME Hypotension - OFF levo RANDALL - improved Hyperkalemia probably due to combination of steroids and AMADEO inhibitor's. - resolved COPD - nebs , steroids CPAP at home - cont noctural Lines : R PICC (Central Line Necessity Reviewed) Tovar: + OG: Nutrition: po Analgesia: Anxiety/ delirium VTE Prophylaxis: Stress Ulcer Prophylaxis: taiwo 40 Glycemic Control: Plans in collaboration with bedside consultants and IM MDs. Discussed with RN to reach out if any questions or concerns A total of 33 minutes of critical care time was devoted to this patient today, required to treat and/or prevent further deterioration of critical care condition ( as above) . RASHI LOPEZ MD Sep 11, 2021 10:47
--- NOTE | 2021-09-11 10:47 | Occupational Ther Daily Note ---
OT Current Status-Daily Note Subjective Pt is alert, sitting in recliner. Pt agrees to therapy. Pt is ready to go home though understands that he needs to be in the hospital right now. Mental Status/Objective Patient Orientation: Person, Place, Time, Situation Attachments: James Catheter, IV, Oxygen (Vapotherm 40'100), Telemetry ADL-Treatment Therapy Code Descriptions/Definitions Functional [place] Measure: 0=Not Assessed/NA 4=Minimal Assistance 1=Total Assistance 5=Supervision or Setup 2=Maximal Assistance 6=Modified [place] 3=Moderate Assistance 7=Complete IndependenceSCALE: Activities may be completed with or without assistive devices. 0-Eivoquxckk-lahdevh completes the activity by him/herself with no assistance from a helper. 5-Set-up or Clean-up Assistance-helper sets up or cleans up; patient completes activity. [place] assists only prior to or following the activity. 4-Supervision or Touching Assistance-helper provides verbal cues and/or touching/steadying and/or contact guard assistance as patient completes activity. Assistance may be provided throughout the activity or intermittently. 3-Partial/Moderate Assistance-helper does LESS THAN HALF the effort. [place] lifts, holds or supports trunk or limbs, but provides less than half the effort. 2-Substantial/Maximal Assistance-helper does MORE THAN HALF the effort. [place] lifts or holds trunk or limbs and provides more than half the effort. 8-Kjuyqpdci-vvinlv does ALL the effort. Patient does none of the effort to complete the activity. Or, the assistance of 2 or more helpers is required for the patient to complete the activity. If activity was not attempted, code reason: 7-Patient Refused. 9-Not Applicable-not attempted and the patient did not perform the activity before the current illness, exacerbation or injury. 10-Not Attempted due to Environmental Limitations-(lack of equipment, weather restraints, etc.). 88-Not Attempted due to Medical Conditions or Safety Concerns. Other Treatment Pt states that he has not had to use BSC, has james catheter. Pt is able to stand and complete SPT with assist for tubing. Pt stated that he as stood to complete B UE strengthening prior to OT session. Pt then completed 2 sets 5 reps sit to stand independently. Pt is demonstrating good movement and able to reach feet and has demonstrated donning/doffing sock by self. Medium resistance theraband will be given at next session. After session, pt sitting in recliner with call light/phone in reach. All needs met in room. OT Barrel Inspector Tight Goals Barrel Inspector Tight Goals Time Frame: Sep 25, 2021 Eating (QC): 6 Oral Hygiene (QC): 6 Toileting Hygiene (QC): 6 Shower/Bathe Self (QC): 6 Upper Body Dressing (QC): 6 Lower Body Dressing (QC): 6 On/Off Footwear (QC): 6 Additional Goals: 1-Demonstrate ADL Tasks, 2-Verbalize Understanding, 3- ImproveStrength/Cris 1=Demonstrate adherence to instructed precautions during ADL tasks. 2=Patient will verbalize/demonstrate understanding of assistive devices/modifications for ADL. 3=Patient will improve strength/tolerance for activity to enable patient to perform ADL's. OT Education/Plan Problem List/Assessment Assessment: Decreased Activ Tolerance Discharge Recommendations Plan/Recommendations: Continue POC Treatment Plan/Plan of Care Patient would benefit from OT for education, treatment and training to promote independence in ADL's, mobility, safety and/or upper extremity function for ADL's. Plan of Care: ADL Retraining, Functional Mobility, UE Funct Exercise/Act Treatment Duration: Sep 25, 2021 Frequency: 3 times per week (3-5 times a week) Rehab Potential: Guarded Time/GCodes Start Time: 10:30 Stop Time: 10:45 Total Time Billed (hr/min): 15 Billed Treatment Time 1 visit-EX 1 (15 min) DORA CACERES Sep 11, 2021 10:47
--- NOTE | 2021-09-11 12:00 | Progress Note ---
ALONDRA ELDER 09/11/21 1200: Subjective Date Seen by a Provider: Sep 11, 2021 Time Seen by a Provider: 11:30 Subjective/Events-last exam Patient is alert, sitting up, and pleasant. Reports that his breathing is better/the same as yesterday. He is tolerating vapotherm with an O2 flow rate of 40 and FiO2 of 100%. Labs display unremarkable change since yesterday. His triglycerides are elevated at 254 today. Potassium is 4.5 CXR showed bilateral infiltrates, left greater than the right, with progression in the right upper lobe. Review of Systems Pulmonary: No Dyspnea, No Cough Cardiovascular: No: Chest Pain Gastrointestinal: No: Abdominal Pain Objective Exam Last Set of Vital Signs Vital Signs Date Time Temp Pulse Resp B/P (MAP) Pulse Ox O2 Delivery O2 Flow Rate FiO2 09/11/21 11:00 53 26 179/98 94 Vapotherm 40.00 100.00 09/11/21 10:14 100 09/11/21 08:00 36.6 Capillary Refill : I&O Intake and Output 09/10/21 23:59 Intake Total 1575 ml Output Total 1575 ml Balance 0 ml Intake Oral 1575 ml Output Urine Total 1575 ml General: Alert HEENT: Atraumatic Lungs: Clear to Auscultation, Other (decreased air movement throughout) Heart: Regular Rate, No Murmurs Abdomen: Normal Bowel Sounds Neuro: Normal Speech Results Lab Laboratory Tests 09/10/21 16:13: Glucometer 126H 09/10/21 20:32: Glucometer 204H 09/10/21 23:38: Glucometer 159H 09/11/21 03:08: Glucometer 142H 09/11/21 03:40: White Blood Count 8.0, Red Blood Count 4.79, Hemoglobin 13.6, Hematocrit 42, Mean Corpuscular Volume 89, Mean Corpuscular Hemoglobin 28, Mean Corpuscular Hemoglobin Concent 32, Red Cell Distribution Width 14.6H, Platelet Count 215, Mean Platelet Volume 10.7, Immature Granulocyte % (Auto) 1, Neutrophils (%) (Auto) 84H, Lymphocytes (%) (Auto) 9L, Monocytes (%) (Auto) 6, Eosinophils (%) (Auto) 0, Basophils (%) (Auto) 0, Neutrophils # (Auto) 6.8, Lymphocytes # (Auto) 0.7L, Monocytes # (Auto) 0.5, Eosinophils # (Auto) 0.0, Basophils # (Auto) 0.0, Immature Granulocyte # (Auto) 0.1, Sodium Level 136, Potassium Level 4.5, Chloride Level 105, Carbon Dioxide Level 23, Anion Gap 8, Blood Urea Nitrogen 28H, Creatinine 0.97, Estimat Glomerular Filtration Rate 80, BUN/Creatinine Ratio 29, Glucose Level 145H, Calcium Level 8.1L, Corrected Calcium 8.8, Phosphorus Level 3.2, Magnesium Level 2.4, Total Bilirubin 0.6, Aspartate Amino Transf (AST/SGOT) 15, Alanine Aminotransferase (ALT/SGPT) 16, Alkaline Phosphatase 52, Total Protein 5.8L, Albumin 3.1L, Triglycerides Level 254H Microbiology 09/08/21 MRSA Screen - Final, Complete MRSA not isolated Assessment/Plan Assessment/Plan Assess & Plan/Chief Complaint Assessment: Acute Hypoxic Respiratory Failure COVID-19 + 09/06/2021 Respiratory Acidosis APOORVA requiring CPAP Increased BMI (42.4) Smoker Hyponatremia possibly secondary to hyperglycemia Hyperkalemia CAD with Coronary Stent Placement Acute Kidney Injury Hyperglycemia Uncontrolled DM type 2 (A1c = 14) Possible CKD secondary to type 2 DM High risk intubation/actemra with picc line placement Hypertriglyceridemia, possibly secondary to corticosteroids Plan: Switch between BiPAP or vapotherm as tolerated, continue to wean as tolerated s/p Actemra Continue to Monitor Respiratory status. If respiratory status continues to decline, patient will require intubation Continue decadron Continue lovenox Cardiac Diet Repeat labs in AM Continue IV Fluids, Normal saline. Continue AM x-ray SELINA MAYFIELD DO 09/12/21 0758: Subjective Subjective/Events-last exam Pt doing a lot better Appears to be much improved Vapotherm on 40L at 100% Told him to expect a long recovery but he seems to be doing much better Review of Systems General: Fatigue, Malaise Objective Exam General: Alert, Oriented X3, Cooperative, No Acute Distress Lungs: Clear to Auscultation, Normal Air Movement Heart: Regular Rate, Normal S1, Normal S2, No Murmurs Psych/Mental Status: Mental Status NL, Mood NL Assessment/Plan Assessment/Plan Assess & Plan/Chief Complaint Vapotherm bipap Monitor closely Supervisory-Addendum Brief Verification & Attestation Participated in pt care: history, MDM, physical Personally performed: exam, history, MDM, supervision of care Care discussed with: Medical Student Procedures: n/a Results interpretation: Verified all documentation Verification and Attestation of Medical Student E/M Service A medical student performed and documented this service in my presence. I reviewed and verified all information documented by the medical student and made modifications to such information, when appropriate. I personally performed the physical exam and medical decision making. Selina Mayfield Sep 12, 2021,07:57 ALONDRA ELDER Sep 11, 2021 12:00 SELINA MAYFIELD DO Sep 12, 2021 07:58
--- NOTE | 2021-09-11 13:23 | Physical Therapy Progress Note ---
Therapy Progress Note Patient refuses physical therapy this afternoon. Patient states he just performed some standing squats and has been performing the exercises he did in physical therapy yesterday. Patient refuses more exercises or ambulation at this time. SANTOS WISE PT Sep 11, 2021 13:23
[2021-09-11] MEDS: AZITHROMYCIN INJECTION 500 MG in NS (IVPB) 250 ML IV SCH (18:01)
[2021-09-12] MEDS: CEFEPIME 1,000 MG/NS 50 ML IVPB IV SCH ×10 (00:16→23:52)
[2021-09-12] MEDS: inSUlin ASPART (NovoLOG) 1 UNIT/0.01 ML (CHARGE PER UNIT) SQ SCH ×6 (00:21→17:51)
[2021-09-12] MEDS: fentaNYL DRIP PRE-MIX 250 ML IV SCH (00:29)
[2021-09-12] MEDS: NOREPINEPHRINE 8 MG/250 ML 250 ML IV SCH (00:29)
[2021-09-12] MEDS: RT-ALBUTEROL HFA 8.5 GM INHALER IH SCH ×6 (02:05→22:54)
[2021-09-12 04:14] LABS: BASOPHILS % (AUTO) 0 % (0-10); EOSINOPHILS % (AUTO) 0 % (0-10); HEMATOCRIT 44 % (40-54); HEMOGLOBIN 13.9 g/dL (13.3-17.7); LYMPHOCYTES # (AUTO) 0.6 10^3/uL (1.0-4.0); LYMPHOCYTES % (AUTO) 6 % (12-44); MEAN CORPUSCULAR HEMOGLOBIN 28 pg (25-34); MEAN CORPUSCULAR HGB CONC 32 g/dL (32-36); MEAN CORPUSCULAR VOLUME 89 fL (80-99); MEAN PLATELET VOLUME 10.6 fL (9.0-12.2); MONOCYTES # (AUTO) 0.6 10^3/uL (0.0-1.0); MONOCYTES % (AUTO) 6 % (0-12); NEUTROPHILS # (AUTO) 9.2 10^3/uL (1.8-7.8); NEUTROPHILS % (AUTO) 87 % (42-75); PLATELET COUNT 242 10^3/uL (130-400); WHITE BLOOD COUNT 10.6 10^3/uL (4.3-11.0)
[2021-09-12 04:31] LABS: ALBUMIN 3.2 GM/DL (3.2-4.5); POTASSIUM 4.4 MMOL/L (3.6-5.0)
[2021-09-12 04:32] LABS: CALCIUM 8.2 MG/DL (8.5-10.1)
[2021-09-12 04:33] LABS: TOTAL PROTEIN 5.8 GM/DL (6.4-8.2)
[2021-09-12 04:35] LABS: BILIRUBIN,TOTAL 0.6 MG/DL (0.1-1.0)
[2021-09-12 04:36] LABS: PHOSPHORUS 3.3 MG/DL (2.3-4.7)
[2021-09-12 04:37] LABS: CREATININE SERUM 1.04 MG/DL (0.60-1.30)
[2021-09-12 04:40] LABS: MAGNESIUM 2.4 MG/DL (1.6-2.4)
[2021-09-12] MEDS: MAGNESIUM 1 GM/100 ML IVPB 100 ML IV SCH (05:07)
[2021-09-12] MEDS: POTASSIUM CL 10MEQ/50ML IVPB 50 ML IV SCH (05:07)
[2021-09-12] MEDS: KCL 20 MEQ TAB (K-DUR) PO SCH ×2 (05:07→21:59)
[2021-09-12] MEDS: ENOXAPARIN 40 MG/0.4 ML (LOVENOX) SYR SC SCH ×2 (05:30→17:51)
--- NOTE | 2021-09-12 06:19 | Diagnostic Imaging Report ---
INDICATION: Pneumonia. TECHNIQUE: Single view chest 4:11 AM. CORRELATION STUDY: 09/11/2021 FINDINGS: There is rather significant opacification of both hemithoraces. There is near complete opacification of the left hemithorax, adversely changed and increased from prior. Opacity in the right lung is most pronounced in the central aspect and rather extensive. Mediastinal structures overall are largely obscured. IMPRESSION: 1. Essentially complete opacification of the left hemithorax, adversely changed from prior with continued and progressive infiltrate-like opacity in the right perihilar region. May be reflective of a combination of extensive infiltrate and/or edema along with potential for effusion. If further assessment is desired, CT imaging would be recommended. Dictated by: Dictated on workstation # [id number]
[2021-09-12] MEDS: ACYCLOVIR 400 MG TABLET (ZOVIRAX) PO SCH ×2 (08:43→21:59)
[2021-09-12] MEDS: PANTOPRAZOLE 40 MG (PROTONIX) VIAL IV SCH (08:44)
[2021-09-12] MEDS: PRASUGREL 10 MG (EFFIENT) TABLET PO SCH (08:44)
--- NOTE | 2021-09-12 09:14 | Tele-ICU Progress Note ---
Progress Note video rounds completed 56 y/o with Covid PNA On BIPAP 24/06 90% Had PE and on apixaban Overall stable and tolerating BIPAP Focused Exam Height, Weight, BMI Height: 6'1.00" Weight: 324lbs. 0.0oz. 146.952727gq; 42.42 BMI Method:Stated Laboratory Tests 09/12/21 04:00 Labs Labs Laboratory Tests 09/11/21 12:31: Glucometer 232H 09/11/21 16:30: Glucometer 233H 09/11/21 20:07: Glucometer 279H 09/12/21 00:17: Glucometer 232H 09/12/21 04:00: White Blood Count 10.6, Red Blood Count 4.91, Hemoglobin 13.9, Hematocrit 44, Mean Corpuscular Volume 89, Mean Corpuscular Hemoglobin 28, Mean Corpuscular Hemoglobin Concent 32, Red Cell Distribution Width 14.6H, Platelet Count 242, Mean Platelet Volume 10.6, Immature Granulocyte % (Auto) 1, Neutrophils (%) (Auto) 87H, Lymphocytes (%) (Auto) 6L, Monocytes (%) (Auto) 6, Eosinophils (%) (Auto) 0, Basophils (%) (Auto) 0, Neutrophils # (Auto) 9.2H, Lymphocytes # (Auto) 0.6L, Monocytes # (Auto) 0.6, Eosinophils # (Auto) 0.0, Basophils # (Auto) 0.0, Immature Granulocyte # (Auto) 0.1, Sodium Level 135, Potassium Level 4.4, Chloride Level 104, Carbon Dioxide Level 23, Anion Gap 8, Blood Urea Nitrogen 26H, Creatinine 1.04, Estimat Glomerular Filtration Rate 74, BUN/Creatinine Ratio 25, Glucose Level 187H, Calcium Level 8.2L, Corrected Calcium 8.8, Phosphorus Level 3.3, Magnesium Level 2.4, Total Bilirubin 0.6, Aspartate Amino Transf (AST/SGOT) 14, Alanine Aminotransferase (ALT/SGPT) 19, Alkaline Phosphatase 60, Total Protein 5.8L, Albumin 3.2 09/12/21 08:15: Glucometer 128H Microbiology 09/08/21 MRSA Screen - Final, Complete MRSA not isolated NEVA MARTINEZ MD Sep 12, 2021 09:14
--- NOTE | 2021-09-12 09:42 | Progress Note ---
Subjective Date Seen by a Provider: Sep 12, 2021 Time Seen by a Provider: 13:30 Subjective/Events-last exam Patient doing dramatically better Transfer to fourth floor Actemra has saved his life Titrating down on Vapotherm Check meds and labs Review of Systems Pulmonary: Dyspnea, Cough Objective Exam Last Set of Vital Signs Vital Signs Date Time Temp Pulse Resp B/P (MAP) Pulse Ox O2 Delivery O2 Flow Rate FiO2 09/12/21 09:21 Vapotherm 25.00 70.00 09/12/21 09:00 66 11 176/92 94 09/12/21 08:32 35.4 09/12/21 07:53 75 Capillary Refill : I&O Intake and Output 09/12/21 00:00 Intake Total 1200 ml Output Total 2100 ml Balance -900 ml Intake Oral 1200 ml Output Urine Total 2100 ml General: Alert, Oriented X3, Cooperative, No Acute Distress Lungs: Clear to Auscultation, Normal Air Movement Heart: Regular Rate, Normal S1, Normal S2, No Murmurs Psych/Mental Status: Mental Status NL, Mood NL Results Lab Laboratory Tests 09/11/21 12:31: Glucometer 232H 09/11/21 16:30: Glucometer 233H 09/11/21 20:07: Glucometer 279H 09/12/21 00:17: Glucometer 232H 09/12/21 04:00: White Blood Count 10.6, Red Blood Count 4.91, Hemoglobin 13.9, Hematocrit 44, Mean Corpuscular Volume 89, Mean Corpuscular Hemoglobin 28, Mean Corpuscular Hemoglobin Concent 32, Red Cell Distribution Width 14.6H, Platelet Count 242, Mean Platelet Volume 10.6, Immature Granulocyte % (Auto) 1, Neutrophils (%) (Auto) 87H, Lymphocytes (%) (Auto) 6L, Monocytes (%) (Auto) 6, Eosinophils (%) (Auto) 0, Basophils (%) (Auto) 0, Neutrophils # (Auto) 9.2H, Lymphocytes # (Auto) 0.6L, Monocytes # (Auto) 0.6, Eosinophils # (Auto) 0.0, Basophils # (Auto) 0.0, Immature Granulocyte # (Auto) 0.1, Sodium Level 135, Potassium Level 4.4, Chloride Level 104, Carbon Dioxide Level 23, Anion Gap 8, Blood Urea Nitrogen 26H, Creatinine 1.04, Estimat Glomerular Filtration Rate 74, BUN/Creatinine Ratio 25, Glucose Level 187H, Calcium Level 8.2L, Corrected Calcium 8.8, Phosphorus Level 3.3, Magnesium Level 2.4, Total Bilirubin 0.6, Aspartate Amino Transf (AST/SGOT) 14, Alanine Aminotransferase (ALT/SGPT) 19, Alkaline Phosphatase 60, Total Protein 5.8L, Albumin 3.2 09/12/21 08:15: Glucometer 128H Microbiology 09/08/21 MRSA Screen - Final, Complete MRSA not isolated Assessment/Plan Assessment/Plan Assess & Plan/Chief Complaint Assessment: Acute Hypoxic Respiratory Failure COVID-19 + 09/06/2021 Respiratory Acidosis APOORVA requiring CPAP Increased BMI (42.4) Smoker Hyponatremia possibly secondary to hyperglycemia Hyperkalemia CAD with Coronary Stent Placement Acute Kidney Injury Hyperglycemia Uncontrolled DM type 2 (A1c = 14) Possible CKD secondary to type 2 DM High risk intubation/actemra with picc line placement Hypertriglyceridemia, possibly secondary to corticosteroids Plan: Transfer to fourth floor Titrate off Vapotherm Clinical Quality Measures Admission Status Admission Dx BiPAP s/p Actemra Monitor closely High risk for intubation Decadron Lovenox JELENA MAYFIELD DO Sep 12, 2021 09:42
[2021-09-12] MEDS ORDERED: LACTULOSE SYRUP 10GM/15ML (ENULOSE) 30ML UDC PO PRN (12:00)
[2021-09-12] MEDS ORDERED: BISACODYL 10 MG SUPP (DULCOLAX) PR PRN (12:00)
[2021-09-12] MEDS ORDERED: DOCUSATE SODIUM 100 MG (COLACE) CAP PO PRN (12:00)
[2021-09-12] MEDS: SENNA W/DOCUSATE (SENOKOT S) TABLET PO SCH ×2 (12:00→21:59)
--- NOTE | 2021-09-12 14:54 | Physical Therapy Daily Note ---
PT Daily Note-Current Subjective States that he wants to walk. Transfers SCALE: Activities may be completed with or without assistive devices. 8-Oiwljgursp-dlzeocn completes the activity by him/herself with no assistance from a helper. 5-Set-up or Clean-up Assistance-helper sets up or cleans up; patient completes activity. [place] assists only prior to or following the activity. 4-Supervision or Touching Assistance-helper provides verbal cues and/or touching/steadying and/or contact guard assistance as patient completes activity. Assistance may be provided throughout the activity or intermittently. 3-Partial/Moderate Assistance-helper does LESS THAN HALF the effort. [place] lifts, holds or supports trunk or limbs, but provides less than half the effort. 2-Substantial/Maximal Assistance-helper does MORE THAN HALF the effort. [place] lifts or holds trunk or limbs and provides more than half the effort. 4-Taconxzkk-pkkudo does ALL the effort. Patient does none of the effort to complete the activity. Or, the assistance of 2 or more helpers is required for the patient to complete the activity. If activity was not attempted, code reason: 7-Patient Refused. 9-Not Applicable-not attempted and the patient did not perform the activity before the current illness, exacerbation or injury. 10-Not Attempted due to Environmental Limitations-(lack of equipment, weather restraints, etc.). 88-Not Attempted due to Medical Conditions or Safety Concerns. Sit to Stand (QC): 5 Gait Training Distance: 75' Gait Persons Needed: 1 Gait Assistive Device: FWW Assessment Current Status: Good Progress Patient did well with gait today. PT [employer] Goals Custodial Goals PT Custodial Goals Time Frame: Sep 19, 2021 Roll Left & Right (QC): 6 Sit to Lying (QC): 6 Lying-Sitting on Side/Bed(QC): 6 Sit to Stand (QC): 6 Chair/Oqm-ak-Cohbi Xfer(QC): 6 Toilet Transfer (QC): 6 Walk 10 feet (QC): 6 Walk 50ft with 2 Turns (QC): 6 Walk 150 ft (QC): 6 PT Plan Treatment/Plan Treatment Plan: Continue Plan of Care Treatment Plan: Bed Mobility, Education, Functional Activity Cris, Functional Strength, Gait, Safety, Therapeutic Exercise, Transfers Treatment Duration: Sep 19, 2021 Frequency: 6 times per week Estimated Hrs Per Day: .25 hour per day Patient and/or Family Agrees t: Yes Time/GCodes Time In: 1420 Time Out: 1430 Total Billed Treatment Time: 10 Total Billed Treatment 1, GT x 10' PARAM GOLDMAN PT Sep 12, 2021 14:54
[2021-09-12] MEDS: inSUlin ASPART (NovoLOG) 1 UNIT/0.01 ML (CHARGE PER UNIT) SC SCH ×2 (16:00→21:59)
[2021-09-12] MEDS: metFORMIN 500 MG (GLUCOPHAGE) TAB PO SCH (17:51)
[2021-09-12 20:44] VITALS: BP 131/75
[2021-09-12] MEDS: polyethylene glycoL POWDER 17 GM (MIRALAX) PACK PO SCH (22:00)
[2021-09-13] VITALS (7 sets, daily range): BP systolic 108–179; BP diastolic 64–85
[2021-09-13] MEDS: RT-ALBUTEROL HFA 8.5 GM INHALER IH SCH ×6 (02:37→22:04)
[2021-09-13] MEDS: CEFEPIME 1,000 MG/NS 50 ML IVPB IV SCH ×6 (05:27→18:05)
[2021-09-13] MEDS: inSUlin ASPART (NovoLOG) 1 UNIT/0.01 ML (CHARGE PER UNIT) SC SCH ×4 (05:28→22:08)
[2021-09-13] MEDS: ENOXAPARIN 40 MG/0.4 ML (LOVENOX) SYR SC SCH ×2 (05:29→18:05)
[2021-09-13 05:38] LABS: BASOPHILS % (AUTO) 0 % (0-10); EOSINOPHILS % (AUTO) 0 % (0-10); HEMATOCRIT 43 % (40-54); HEMOGLOBIN 13.9 g/dL (13.3-17.7); LYMPHOCYTES # (AUTO) 0.8 10^3/uL (1.0-4.0); LYMPHOCYTES % (AUTO) 6 % (12-44); MEAN CORPUSCULAR HEMOGLOBIN 29 pg (25-34); MEAN CORPUSCULAR HGB CONC 33 g/dL (32-36); MEAN CORPUSCULAR VOLUME 88 fL (80-99); MONOCYTES # (AUTO) 0.8 10^3/uL (0.0-1.0); MONOCYTES % (AUTO) 6 % (0-12); NEUTROPHILS # (AUTO) 11.3 10^3/uL (1.8-7.8); NEUTROPHILS % (AUTO) 86 % (42-75); PLATELET COUNT 232 10^3/uL (130-400); WHITE BLOOD COUNT 13.1 10^3/uL (4.3-11.0)
[2021-09-13 05:47] LABS: POTASSIUM 4.5 MMOL/L (3.6-5.0)
[2021-09-13 05:48] LABS: CALCIUM 8.2 MG/DL (8.5-10.1)
[2021-09-13 05:49] LABS: TOTAL PROTEIN 5.4 GM/DL (6.4-8.2)
[2021-09-13 05:51] LABS: BILIRUBIN,TOTAL 0.8 MG/DL (0.1-1.0)
[2021-09-13 05:53] LABS: CREATININE SERUM 0.83 MG/DL (0.60-1.30)
[2021-09-13 05:55] LABS: MAGNESIUM 2.1 MG/DL (1.6-2.4)
--- NOTE | 2021-09-13 08:31 | Progress Note ---
Subjective Date Seen by a Provider: Sep 13, 2021 Time Seen by a Provider: 13:30 Subjective/Events-last exam Patient doing really well Decreasing Vapotherm Checked labs Updated patient Very negative Review of Systems General: Fatigue, Malaise Objective Exam Last Set of Vital Signs Vital Signs Date Time Temp Pulse Resp B/P (MAP) Pulse Ox O2 Delivery O2 Flow Rate FiO2 09/13/21 04:15 36.2 67 20 95 Vapotherm 30.00 70.00 09/12/21 21:00 70 Capillary Refill : I&O Intake and Output 09/13/21 00:00 Intake Total 1030 ml Output Total 1675 ml Balance -645 ml Intake Oral 1030 ml Output Urine Total 1675 ml General: Alert, Oriented X3, Cooperative, No Acute Distress Lungs: Clear to Auscultation, Normal Air Movement Neuro: Normal Gait, Normal Speech, Strength at 5/5 X4 Ext, Normal Tone Psych/Mental Status: Mental Status NL, Mood NL Results Lab Laboratory Tests 09/12/21 11:44: Glucometer 145H 09/12/21 16:27: Glucometer 139H 09/12/21 20:47: Glucometer 180H 09/13/21 05:25: White Blood Count 13.1H, Red Blood Count 4.86, Hemoglobin 13.9, Hematocrit 43, Mean Corpuscular Volume 88, Mean Corpuscular Hemoglobin 29, Mean Corpuscular Hemoglobin Concent 33, Red Cell Distribution Width 14.4, Platelet Count 232, Mean Platelet Volume 11.0, Immature Granulocyte % (Auto) 1, Neutrophils (%) (Au to) 86H, Lymphocytes (%) (Auto) 6L, Monocytes (%) (Auto) 6, Eosinophils (%) (Auto) 0, Basophils (%) (Auto) 0, Neutrophils # (Auto) 11.3H, Lymphocytes # (Auto) 0.8L, Monocytes # (Auto) 0.8, Eosinophils # (Auto) 0.0, Basophils # (Auto) 0.0, Immature Granulocyte # (Auto) 0.2H, Sodium Level 135, Potassium Level 4.5, Chloride Level 103, Carbon Dioxide Level 25, Anion Gap 7, Blood Urea Nitrogen 24H, Creatinine 0.83, Estimat Glomerular Filtration Rate 95, BUN/Creatinine Ratio 29, Glucose Level 111H, Calcium Level 8.2L, Corrected Calcium 9.0, Magnesium Level 2.1, Total Bilirubin 0.8, Aspartate Amino Transf (AST/SGOT) 15, Alanine Aminotransferase (ALT/SGPT) 22, Alkaline Phosphatase 49, Total Protein 5.4L, Albumin 3.0L 09/13/21 05:28: Glucometer 115H Microbiology 09/08/21 MRSA Screen - Final, Complete MRSA not isolated Assessment/Plan Assessment/Plan Assess & Plan/Chief Complaint Assessment: Acute Hypoxic Respiratory Failure COVID-19 + 09/06/2021 Respiratory Acidosis APOORVA requiring CPAP Increased BMI (42.4) Smoker Hyponatremia possibly secondary to hyperglycemia Hyperkalemia CAD with Coronary Stent Placement Acute Kidney Injury Hyperglycemia Uncontrolled DM type 2 (A1c = 14) Possible CKD secondary to type 2 DM High risk intubation/actemra with picc line placement Hypertriglyceridemia, possibly secondary to corticosteroids Plan: Transfer to fourth floor Titrate off Vapotherm 09/13/21: Monitor closely Wean O2 Clinical Quality Measures Admission Status Admission Dx BiPAP s/p Actemra Monitor closely High risk for intubation Decadron [employer] JELENA MAYFIELD DO Sep 13, 2021 08:31
[2021-09-13] MEDS: metFORMIN 500 MG (GLUCOPHAGE) TAB PO SCH ×2 (10:06→18:05)
[2021-09-13] MEDS: KCL 20 MEQ TAB (K-DUR) PO SCH ×2 (10:06→21:07)
[2021-09-13] MEDS: PRASUGREL 10 MG (EFFIENT) TABLET PO SCH (10:06)
[2021-09-13] MEDS: PANTOPRAZOLE 40 MG (PROTONIX) TAB PO SCH (10:07)
[2021-09-13] MEDS: EMPAGLIFLOZIN 10 MG TABLET (JARDIANCE) PO SCH (10:07)
[2021-09-13] MEDS: SENNA W/DOCUSATE (SENOKOT S) TABLET PO SCH ×2 (10:07→21:07)
[2021-09-13] MEDS: FUROSEMIDE 40 MG (LASIX) TAB PO SCH (10:07)
[2021-09-13] MEDS: ACYCLOVIR 400 MG TABLET (ZOVIRAX) PO SCH ×2 (10:07→21:07)
[2021-09-13] MEDS: inSUlin ASPART (NovoLOG) 1 UNIT/0.01 ML (CHARGE PER UNIT) SQ SCH ×3 (10:08→18:05)
[2021-09-13] MEDS: polyethylene glycoL POWDER 17 GM (MIRALAX) PACK PO SCH ×2 (10:09→21:07)
[2021-09-14] MEDS: CEFEPIME 1,000 MG/NS 50 ML IVPB IV SCH ×2
[2021-09-14] MEDS: RT-ALBUTEROL HFA 8.5 GM INHALER IH SCH ×6 (02:37→22:28)
[2021-09-14 04:25] LABS: BASOPHILS % (AUTO) 0 % (0-10); EOSINOPHILS # (AUTO) 0.1 10^3/uL (0.0-0.3); EOSINOPHILS % (AUTO) 1 % (0-10); HEMATOCRIT 43 % (40-54); LYMPHOCYTES % (AUTO) 8 % (12-44); MEAN CORPUSCULAR HEMOGLOBIN 29 pg (25-34); MEAN CORPUSCULAR HGB CONC 33 g/dL (32-36); MEAN CORPUSCULAR VOLUME 88 fL (80-99); MONOCYTES # (AUTO) 0.8 10^3/uL (0.0-1.0); MONOCYTES % (AUTO) 6 % (0-12); NEUTROPHILS # (AUTO) 10.4 10^3/uL (1.8-7.8); NEUTROPHILS % (AUTO) 84 % (42-75); PLATELET COUNT 229 10^3/uL (130-400); WHITE BLOOD COUNT 12.4 10^3/uL (4.3-11.0)
[2021-09-14 04:46] LABS: ALBUMIN 3.1 GM/DL (3.2-4.5); POTASSIUM 4.9 MMOL/L (3.6-5.0)
[2021-09-14 04:47] LABS: CALCIUM 8.3 MG/DL (8.5-10.1)
[2021-09-14 04:49] LABS: TOTAL PROTEIN 5.6 GM/DL (6.4-8.2)
[2021-09-14 04:52] LABS: CREATININE SERUM 0.93 MG/DL (0.60-1.30)
[2021-09-14 04:55] LABS: MAGNESIUM 1.9 MG/DL (1.6-2.4)
[2021-09-14] MEDS: inSUlin ASPART (NovoLOG) 1 UNIT/0.01 ML (CHARGE PER UNIT) SC SCH ×4 (05:21→20:34)
[2021-09-14] MEDS: inSUlin ASPART (NovoLOG) 1 UNIT/0.01 ML (CHARGE PER UNIT) SQ SCH ×3 (06:43→18:21)
[2021-09-14] MEDS: ENOXAPARIN 40 MG/0.4 ML (LOVENOX) SYR SC SCH ×2 (06:43→18:32)
[2021-09-14 08:00] VITALS: BP 121/58
[2021-09-14] MEDS: PRASUGREL 10 MG (EFFIENT) TABLET PO SCH (09:04)
[2021-09-14] MEDS: metFORMIN 500 MG (GLUCOPHAGE) TAB PO SCH ×2 (09:05→18:32)
[2021-09-14] MEDS: EMPAGLIFLOZIN 10 MG TABLET (JARDIANCE) PO SCH (09:05)
[2021-09-14] MEDS: ACYCLOVIR 400 MG TABLET (ZOVIRAX) PO SCH ×2 (09:05→21:38)
[2021-09-14] MEDS: KCL 20 MEQ TAB (K-DUR) PO SCH ×2 (09:06→21:38)
[2021-09-14] MEDS: PANTOPRAZOLE 40 MG (PROTONIX) TAB PO SCH (09:06)
[2021-09-14] MEDS: FUROSEMIDE 40 MG (LASIX) TAB PO SCH (09:06)
[2021-09-14] MEDS: polyethylene glycoL POWDER 17 GM (MIRALAX) PACK PO SCH ×2 (09:06→21:38)
[2021-09-14] MEDS: SENNA W/DOCUSATE (SENOKOT S) TABLET PO SCH ×2 (09:09→21:38)
--- NOTE | 2021-09-14 13:49 | Physical Therapy Daily Note ---
PT Daily Note-Current Subjective Patient in recliner pre tx, agrees to PT, has no complaints of pain, states he really wants to go home. Appearance Patient in recliner post tx with nurse call, phone, tray, all needs met. Mental Status Patient Orientation: Person, Place, Situation Attachments: Oxygen (vapotherm) Transfers SCALE: Activities may be completed with or without assistive devices. 3-Zggpvmtqpt-vwmzoel completes the activity by him/herself with no assistance from a helper. 5-Set-up or Clean-up Assistance-helper sets up or cleans up; patient completes activity. [place] assists only prior to or following the activity. 4-Supervision or Touching Assistance-helper provides verbal cues and/or touching/steadying and/or contact guard assistance as patient completes activity. Assistance may be provided throughout the activity or intermittently. 3-Partial/Moderate Assistance-helper does LESS THAN HALF the effort. [place] lifts, holds or supports trunk or limbs, but provides less than half the effort. 2-Substantial/Maximal Assistance-helper does MORE THAN HALF the effort. [place] lifts or holds trunk or limbs and provides more than half the effort. 2-Ibgtmmzwm-agotfu does ALL the effort. Patient does none of the effort to complete the activity. Or, the assistance of 2 or more helpers is required for the patient to complete the activity. If activity was not attempted, code reason: 7-Patient Refused. 9-Not Applicable-not attempted and the patient did not perform the activity before the current illness, exacerbation or injury. 10-Not Attempted due to Environmental Limitations-(lack of equipment, weather restraints, etc.). 88-Not Attempted due to Medical Conditions or Safety Concerns. Sit to Stand (QC): 6 Chair/Xcl-vb-Cmumw Xfer(QC): 6 Gait Training Distance: 50' Walk 10 feet (QC): 6 Gait Assistive Device: None slow but steady ambulation, no SOB but patient states he needed to sit down after ambulating 50' Exercises Seated Therapy Exercises: Ankle pumps, Long arc quads Seated Reps: 20 Treatments transfers, ambulation, LE strengthening Assessment Current Status: Fair Progress slowly improving endurance PT Press Assistant Goals Group Home Goals PT Press Assistant Goals Time Frame: Sep 19, 2021 Roll Left & Right (QC): 6 Sit to Lying (QC): 6 Lying-Sitting on Side/Bed(QC): 6 Sit to Stand (QC): 6 Chair/Ixt-jn-Ovwxc Xfer(QC): 6 Toilet Transfer (QC): 6 Walk 10 feet (QC): 6 Walk 50ft with 2 Turns (QC): 6 Walk 150 ft (QC): 6 PT Plan Problem List Problem List: Activity Tolerance, Functional Strength, Safety, Balance, Gait, Transfer, Bed Mobility, ROM Treatment/Plan Treatment Plan: Continue Plan of Care Treatment Plan: Bed Mobility, Education, Functional Activity Cris, Functional Strength, Gait, Safety, Therapeutic Exercise, Transfers Treatment Duration: Sep 19, 2021 Frequency: 6 times per week Estimated Hrs Per Day: .25 hour per day Patient and/or Family Agrees t: Yes Safety Risks/Education Patient Education: Gait Training, Transfer Techniques, Correct Positioning, Safety Issues Teaching Recipient: Patient Teaching Methods: Demonstration, Discussion Response to Teaching: Reinforcement Needed Time/GCodes Time In: 1313 Time Out: 1323 Total Billed Treatment Time: 10 Total Billed Treatment 1 visit GT 10' SANTOS WISE PT Sep 14, 2021 13:49
--- NOTE | 2021-09-14 14:06 | Occupational Ther Daily Note ---
OT Current Status-Daily Note Subjective Pt up in recliner, agreeable to OT Tx. Mental Status/Objective Patient Orientation: Person, Place, Time, Situation ADL-Treatment Therapy Code Descriptions/Definitions Functional [place] Measure: 0=Not Assessed/NA 4=Minimal Assistance 1=Total Assistance 5=Supervision or Setup 2=Maximal Assistance 6=Modified [place] 3=Moderate Assistance 7=Complete IndependenceSCALE: Activities may be completed with or without assistive devices. 3-Issghzodef-fnrzsxi completes the activity by him/herself with no assistance from a helper. 5-Set-up or Clean-up Assistance-helper sets up or cleans up; patient completes activity. [place] assists only prior to or following the activity. 4-Supervision or Touching Assistance-helper provides verbal cues and/or touching/steadying and/or contact guard assistance as patient completes activity. Assistance may be provided throughout the activity or intermittently. 3-Partial/Moderate Assistance-helper does LESS THAN HALF the effort. [place] lifts, holds or supports trunk or limbs, but provides less than half the effort. 2-Substantial/Maximal Assistance-helper does MORE THAN HALF the effort. [place] lifts or holds trunk or limbs and provides more than half the effort. 3-Odkvarbzq-xuxhwz does ALL the effort. Patient does none of the effort to complete the activity. Or, the assistance of 2 or more helpers is required for the patient to complete the activity. If activity was not attempted, code reason: 7-Patient Refused. 9-Not Applicable-not attempted and the patient did not perform the activity before the current illness, exacerbation or injury. 10-Not Attempted due to Environmental Limitations-(lack of equipment, weather restraints, etc.). 88-Not Attempted due to Medical Conditions or Safety Concerns. Eating (QC): 6 (Per pt report.) Upper Body Dressing (QC): 6 (per clincial judgment and pt report) Lower Body Dressing (QC): 6 (Per clincial judgment and pt report.) On/Off Footwear: 6 (IND with gripper socks.) Toileting Hygiene (QC): 6 (IND per pt report and clincial judgment.) Other Treatment Pt up in recliner, agreeable to OT Tx. Pt states he has no concerns with his ability to complete ADLs. Pt able to doff/don gripper socks independently and IND with lunch. Pt states he is only limited by length of vapotherm tubing at this time. Pt independent with UE exercise HEP. OT encouraged pt to continue with HEP, increasing reps as tolerated. Post tx, pt up in recliner, call light in reach and all needs met. Education OT Patient Education: Correct positioning, Energy conservation, Exercise program, Modified ADL techniques, Progress toward Goal/Update tx plan, Purpose of tx/functional activities, Rehab process Teaching Recipient: Patient Teaching Methods: Discussion Response to Teaching: Verbalize Understanding OT Snf Goals Snf Goals Time Frame: Sep 25, 2021 Eating (QC): 6 Oral Hygiene (QC): 6 Toileting Hygiene (QC): 6 Shower/Bathe Self (QC): 6 Upper Body Dressing (QC): 6 Lower Body Dressing (QC): 6 On/Off Footwear (QC): 6 Additional Goals: 1-Demonstrate ADL Tasks, 2-Verbalize Understanding, 3- ImproveStrength/Cris 1=Demonstrate adherence to instructed precautions during ADL tasks. 2=Patient will verbalize/demonstrate understanding of assistive devices/modifications for ADL. 3=Patient will improve strength/tolerance for activity to enable patient to perform ADL's. OT Education/Plan Problem List/Assessment Assessment: No Skilled OT Needs ID'd No further OT services indicated at this time, as pt is independent with all ADLs and at OF. Discharge Recommendations Plan/Recommendations: Discharge/Goals Met Treatment Plan/Plan of Care Patient would benefit from OT for education, treatment and training to promote independence in ADL's, mobility, safety and/or upper extremity function for ADL's. Plan of Care: ADL Retraining, Functional Mobility, UE Funct Exercise/Act Treatment Duration: Sep 25, 2021 Frequency: 3 times per week (3-5 times a week) Rehab Potential: Guarded Time/GCodes Start Time: 13:30 Stop Time: 13:40 Total Time Billed (hr/min): 10 Billed Treatment Time 1, ADL TRUDY DAVILA OT Sep 14, 2021 14:06
--- NOTE | 2021-09-14 14:09 | Progress Note - Hospitalist ---
[facility] 09/14/21 1409: Subjective HPI/CC On Admission Date Seen by Provider: Sep 14, 2021 Time Seen by Provider: 08:00 56 yo male transferred from [facility] ICU to [facility] ICU late last night/early this morning (09/07). Patient is vaccinated against covid. On admission at [facility], patient was hypotensive, hyperglycemic (600+ sugars and A1c of 14.9), and acidotic, however, was well appearing granting admission at [facility]. During the night, patient became more hypotensive and hypoxic requiring BiPAP, therefore, he was transferred to [facility]. ABG on admission was 7.18/63/67, sodium of 127, potassium of 5.1, and an x-ray revealing moderate left and mild right base airspace opacities consistent with history of pneumonia. Patient currently smokes and uses CPAP for APOORVA x 2 years and has a history of CAD with stents placed years ago. 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 History was difficult to obtain as patient was currently on BiPAP. Most of the history was obtained through chart review. Patient denies any pain, fevers, chills, nausea, or vomiting. Shrugs his shoulders when asked if his breathing is improving. Subjective/Events-last exam Afebrile, No acute events overnight Patient reports feeling well and overall improving Switches between Bipap and vapotherm WBC remains elevated but most likely to decadron Denies fevers, chills, shortness of breath, abdominal pain Review of Systems General: No Chills, No Other (fevers) Pulmonary: No Dyspnea, No Cough Cardiovascular: No: Chest Pain, Palpitations Gastrointestinal: No: Nausea, Vomiting, Abdominal Pain Objective Exam Vital Signs Vital Signs Date Time Temp Pulse Resp B/P (MAP) Pulse Ox O2 Delivery O2 Flow Rate FiO2 09/14/21 09:57 94 Vapotherm 30.00 55 09/14/21 08:00 36.2 65 20 121/58 (79) Capillary Refill : General Appearance: No Apparent Distress, WD/WN, Obese HEENT: PERRL/EOMI, Normal ENT Inspection (no gross deformities) Neck: Non Tender, Supple Respiratory: Normal Breath Sounds, No Accessory Muscle Use, No Respiratory Distress, Other (Currently on vapotherm at 60%) Cardiovascular: Regular Rate, Rhythm, Normal Peripheral Pulses (radial pusles bilaterally) Gastrointestinal: Non Tender, Soft Extremity: No Calf Tenderness, Other (Lower extremity edema +1 bilaterally) Neurologic/Psychiatric: Alert, Oriented x3, Normal Mood/Affect Skin: Normal Color, Warm/Dry Lymphatic: No Adenopathy Results/Procedures Lab Laboratory Tests 09/14/21 04:20 Patient resulted labs reviewed. Assessment/Plan Assessment and Plan Assess & Plan/Chief Complaint Assessment: Acute Hypoxic Respiratory Failure COVID-19 + 09/06/2021 Respiratory Acidosis APOORVA requiring CPAP Increased BMI (42.4) Smoker Hyponatremia possibly secondary to hyperglycemia Hyperkalemia CAD with Coronary Stent Placement Acute Kidney Injury Hyperglycemia Uncontrolled DM type 2 (A1c = 14) Possible CKD secondary to type 2 DM High risk intubation/actemra with picc line placement Hypertriglyceridemia, possibly secondary to corticosteroids Plan: Leukocytosis secondary to demargination Continue to titrate off Vapotherm Isolation per hospital policy s/p Actemra Continue to Monitor Respiratory status. Chest x-ray if respiratory status declines Continue decadron Continue lovenox Cardiac Diet Repeat labs in AM Continue IV Fluids, Normal saline. Patient continues to improve. Will switch between vapotherm and bipap as to lerated Continue glucose management Clinical Quality Measures Admission Status Admission Dx Acute Hypoxic Respiratory Failure COVID-19 + 09/06/2021 Respiratory Acidosis APOORVA requiring CPAP Increased BMI (42.4) Smoker Hyponatremia possibly secondary to hyperglycemia Hyperkalemia CAD with Coronary Stent Placement Acute Kidney Injury Hyperglycemia Uncontrolled DM type 2 (A1c = 14) Possible CKD secondary to type 2 DM High risk intubation/actemra with picc line placement Continue to Monitor Respiratory status. If respiratory status continues to decline, patient will require intubation Cardiac Diet Repeat labs in AM Hyperkalemia protocol (albuterol, insulin, calcium gluconate) Continue IV Fluids, Normal saline. Discontinue Metformin due to R[place]ALL, hypoxemia, and acidosis SELINA MAYFIELD DO 09/15/21 0527: Subjective Subjective/Events-last exam Flat affect continues Switched pt from vapotherm to BiPAP 35 L at 55% White count 12.4 Review of Systems Pulmonary: Dyspnea Objective Exam General Appearance: No Apparent Distress, WD/WN, Chronically ill, Obese Respiratory: Normal Breath Sounds, No Accessory Muscle Use, No Respiratory Distress Cardiovascular: Regular Rate, Rhythm Neurologic/Psychiatric: Alert, Oriented x3, Depressed Affect Assessment/Plan Assessment and Plan Assess & Plan/Chief Complaint Wean Vapotherm Supervisory-Addendum Brief Verification & Attestation Participated in pt care: history, MDM, physical Personally performed: exam, history, MDM, supervision of care Care discussed with: Medical Student Procedures: n/a Results interpretation: Verified all documentation Verification and Attestation of Medical Student E/M Service A medical student performed and documented this service in my presence. I reviewed and verified all information documented by the medical student and made modifications to such information, when appropriate. I personally performed the physical exam and medical decision making. Selina Mayfield, Sep 15, 2021,05:27 MARNI RONQUILLO [facility] Sep 14, 2021 14:09 SELINA MAYFIELD DO Sep 15, 2021 05:27
[2021-09-14 16:00] VITALS: BP 178/90
[2021-09-15 00:15] VITALS: BP 164/88
[2021-09-15] MEDS: RT-ALBUTEROL HFA 8.5 GM INHALER IH SCH ×6 (02:22→21:59)
[2021-09-15 04:31] LABS: BASOPHILS % (AUTO) 0 % (0-10); EOSINOPHILS # (AUTO) 0.2 10^3/uL (0.0-0.3); EOSINOPHILS % (AUTO) 1 % (0-10); HEMATOCRIT 48 % (40-54); HEMOGLOBIN 15.4 g/dL (13.3-17.7); LYMPHOCYTES # (AUTO) 1.2 10^3/uL (1.0-4.0); LYMPHOCYTES % (AUTO) 10 % (12-44); MEAN CORPUSCULAR HEMOGLOBIN 29 pg (25-34); MEAN CORPUSCULAR HGB CONC 32 g/dL (32-36); MEAN CORPUSCULAR VOLUME 88 fL (80-99); MEAN PLATELET VOLUME 11.4 fL (9.0-12.2); MONOCYTES # (AUTO) 0.8 10^3/uL (0.0-1.0); MONOCYTES % (AUTO) 7 % (0-12); NEUTROPHILS % (AUTO) 80 % (42-75); PLATELET COUNT 257 10^3/uL (130-400); WHITE BLOOD COUNT 12.5 10^3/uL (4.3-11.0)
[2021-09-15 04:47] LABS: ALBUMIN 3.5 GM/DL (3.2-4.5)
[2021-09-15 04:49] LABS: CALCIUM 8.6 MG/DL (8.5-10.1)
[2021-09-15 04:50] LABS: TOTAL PROTEIN 6.2 GM/DL (6.4-8.2)
[2021-09-15 04:52] LABS: BILIRUBIN,TOTAL 1.3 MG/DL (0.1-1.0)
[2021-09-15 04:54] LABS: CREATININE SERUM 1.02 MG/DL (0.60-1.30)
[2021-09-15] MEDS: inSUlin ASPART (NovoLOG) 1 UNIT/0.01 ML (CHARGE PER UNIT) SC SCH ×4 (04:56→20:54)
[2021-09-15 04:57] LABS: MAGNESIUM 1.8 MG/DL (1.6-2.4)
[2021-09-15] MEDS: ENOXAPARIN 40 MG/0.4 ML (LOVENOX) SYR SC SCH ×2 (06:46→16:34)
[2021-09-15] MEDS: inSUlin ASPART (NovoLOG) 1 UNIT/0.01 ML (CHARGE PER UNIT) SQ SCH ×3 (06:47→16:34)
[2021-09-15 08:02] VITALS: BP 144/95
--- NOTE | 2021-09-15 08:36 | Physical Therapy Daily Note ---
PT Daily Note-Current Subjective Patient in recliner pre tx, agrees reluctantly to PT, he is visibly upset about being interrupted, has no complaints of pain. Patient states he just wants to go home. Appearance Patient in recliner post tx with nurse call, phone, tray, all needs met. Mental Status Patient Orientation: Person, Place, Situation Attachments: Oxygen (vapotherm) Transfers SCALE: Activities may be completed with or without assistive devices. 8-Nmtrvabqnp-[id number] completes the activity by him/herself with no assistance from a helper. 5-Set-up or Clean-up Assistance-helper sets up or cleans up; patient completes activity. [place] assists only prior to or following the activity. 4-Supervision or Touching Assistance-helper provides verbal cues and/or touching/steadying and/or contact guard assistance as patient completes activity. Assistance may be provided throughout the activity or intermittently. 3-Partial/Moderate Assistance-helper does LESS THAN HALF the effort. [place] lifts, holds or supports trunk or limbs, but provides less than half the effort. 2-Substantial/Maximal Assistance-helper does MORE THAN HALF the effort. [place] lifts or holds trunk or limbs and provides more than half the effort. 5-Txjzhmmdc-zoaceo does ALL the effort. Patient does none of the effort to complete the activity. Or, the assistance of 2 or more helpers is required for the patient to complete the activity. If activity was not attempted, code reason: 7-Patient Refused. 9-Not Applicable-not attempted and the patient did not perform the activity before the current illness, exacerbation or injury. 10-Not Attempted due to Environmental Limitations-(lack of equipment, weather restraints, etc.). 88-Not Attempted due to Medical Conditions or Safety Concerns. Sit to Stand (QC): 6 Chair/Oat-qw-Yasql Xfer(QC): 6 Gait Training Distance: 80' Walk 10 feet (QC): 6 Walk 50 ft with 2 Turns(QC): 6 Gait Assistive Device: None patient walks forward and back, limited by his vapotherm line for a total of about 80', steady ambulation Exercises Seated Therapy Exercises: Ankle pumps, Long arc quads Seated Reps: 20 Treatments ambulation, transfers, LE strengthening Assessment Current Status: Fair Progress independent with mobility PT Guide Tour Goals Residential Goals PT Guide Tour Goals Time Frame: Sep 19, 2021 Roll Left & Right (QC): 6 Sit to Lying (QC): 6 Lying-Sitting on Side/Bed(QC): 6 Sit to Stand (QC): 6 Chair/Yiu-kl-Offqd Xfer(QC): 6 Toilet Transfer (QC): 6 Walk 10 feet (QC): 6 Walk 50ft with 2 Turns (QC): 6 Walk 150 ft (QC): 6 PT Plan Problem List Problem List: Activity Tolerance, Functional Strength, Safety, Balance, Gait, Transfer, Bed Mobility, ROM Treatment/Plan Treatment Plan: Continue Plan of Care Treatment Plan: Bed Mobility, Education, Functional Activity Cris, Functional Strength, Gait, Safety, Therapeutic Exercise, Transfers Treatment Duration: Sep 19, 2021 Frequency: 6 times per week Estimated Hrs Per Day: .25 hour per day Patient and/or Family Agrees t: Yes Safety Risks/Education Patient Education: Gait Training, Transfer Techniques, Correct Positioning, Safety Issues Teaching Recipient: Patient Teaching Methods: Demonstration, Discussion Response to Teaching: Reinforcement Needed Time/GCodes Time In: 820 Time Out: 828 Total Billed Treatment Time: 8 Total Billed Treatment 1 visit GT 8' SANTOS WISE PT Sep 15, 2021 08:36
[2021-09-15] MEDS: ACYCLOVIR 400 MG TABLET (ZOVIRAX) PO SCH ×2 (08:57→20:10)
[2021-09-15] MEDS: metFORMIN 500 MG (GLUCOPHAGE) TAB PO SCH ×2 (08:57→16:34)
[2021-09-15] MEDS: polyethylene glycoL POWDER 17 GM (MIRALAX) PACK PO SCH ×2 (08:58→20:10)
[2021-09-15] MEDS: KCL 20 MEQ TAB (K-DUR) PO SCH ×2 (08:58→20:10)
[2021-09-15] MEDS: PRASUGREL 10 MG (EFFIENT) TABLET PO SCH (08:58)
[2021-09-15] MEDS: SENNA W/DOCUSATE (SENOKOT S) TABLET PO SCH ×2 (08:58→20:11)
[2021-09-15] MEDS: EMPAGLIFLOZIN 10 MG TABLET (JARDIANCE) PO SCH (08:58)
[2021-09-15] MEDS: PANTOPRAZOLE 40 MG (PROTONIX) TAB PO SCH (08:58)
[2021-09-15] MEDS: FUROSEMIDE 40 MG (LASIX) TAB PO SCH (08:58)
--- NOTE | 2021-09-15 10:10 | Progress Note - Hospitalist ---
Subjective HPI/CC On Admission Date Seen by Provider: Sep 15, 2021 Time Seen by Provider: 10:00 56 yo male transferred from [facility] to [facility] ICU late last night/early this morning (09/07). Patient is vaccinated against covid. On admission at [facility], patient was hypotensive, hyperglycemic (600+ sugars and A1c of 14.9), and acidotic, however, was well appearing granting admission at [facility]. During the night, patient became more hypotensive and hypoxic requiring BiPAP, therefore, he was transferred to [facility]. ABG on admission was 7.18/63/67, sodium of 127, potassium of 5.1, and an x-ray revealing moderate left and mild right base airspace opacities consistent with history of pneumonia. Patient currently smokes and uses CPAP for APOORVA x 2 years and has a history of CAD with stents placed years ago. 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 History was difficult to obtain as patient was currently on BiPAP. Most of the history was obtained through chart review. Patient denies any pain, fevers, chills, nausea, or vomiting. Shrugs his shoulders when asked if his breathing is improving. Subjective/Events-last exam Pt is very negative Notified RT to try to wean down O2 Very frustrated Tried to do what I could to uplift his spirits, but this is going to be a challenge for him Review of Systems General: Fatigue, Malaise Pulmonary: Dyspnea Objective Exam Vital Signs Vital Signs Date Time Temp Pulse Resp B/P (MAP) Pulse Ox O2 Delivery O2 Flow Rate FiO2 09/16/21 03:12 91 High Flow N/C 4.00 09/16/21 00:15 36.4 59 22 133/78 (96) 09/15/21 20:20 55 Capillary Refill : General Appearance: No Apparent Distress, WD/WN, Chronically ill, Obese Respiratory: Lungs Clear, Normal Breath Sounds Cardiovascular: Regular Rate, Rhythm Results/Procedures Lab Laboratory Tests 09/16/21 05:12 Patient resulted labs reviewed. Assessment/Plan Assessment and Plan Assess & Plan/Chief Complaint Assessment: Acute Hypoxic Respiratory Failure COVID-19 + 09/06/2021 Respiratory Acidosis APOORVA requiring CPAP Increased BMI (42.4) Smoker Hyponatremia possibly secondary to hyperglycemia Hyperkalemia CAD with Coronary Stent Placement Acute Kidney Injury Hyperglycemia Uncontrolled DM type 2 (A1c = 14) Possible CKD secondary to type 2 DM High risk intubation/actemra with picc line placement Hypertriglyceridemia, possibly secondary to corticosteroids 09/15/21: Wean O2 Critical Care Critically Ill Patient Clinical Quality Measures Admission Status Admission Dx BiPAP s/p Actemra Monitor closely High risk for intubation Decadron Lovenox JELENA MAYFIELD DO Sep 15, 2021 10:10
[2021-09-15 16:00] VITALS: BP 138/82
[2021-09-15] MEDS: MICONAZOLE 2% POWDER (DESENEX AF) 90 GM TOP SCH (20:13)
[2021-09-16 00:15] VITALS: BP 133/78
[2021-09-16] MEDS: RT-ALBUTEROL HFA 8.5 GM INHALER IH SCH ×3 (03:12→10:42)
[2021-09-16] MEDS: ENOXAPARIN 40 MG/0.4 ML (LOVENOX) SYR SC SCH (05:15)
[2021-09-16 05:28] LABS: BASOPHILS % (AUTO) 0 % (0-10); EOSINOPHILS # (AUTO) 0.1 10^3/uL (0.0-0.3); EOSINOPHILS % (AUTO) 1 % (0-10); HEMATOCRIT 44 % (40-54); HEMOGLOBIN 14.4 g/dL (13.3-17.7); LYMPHOCYTES # (AUTO) 1.4 10^3/uL (1.0-4.0); LYMPHOCYTES % (AUTO) 13 % (12-44); MEAN CORPUSCULAR HEMOGLOBIN 29 pg (25-34); MEAN CORPUSCULAR HGB CONC 33 g/dL (32-36); MEAN CORPUSCULAR VOLUME 87 fL (80-99); MEAN PLATELET VOLUME 11.8 fL (9.0-12.2); MONOCYTES # (AUTO) 0.8 10^3/uL (0.0-1.0); MONOCYTES % (AUTO) 8 % (0-12); NEUTROPHILS % (AUTO) 75 % (42-75); PLATELET COUNT 218 10^3/uL (130-400); WHITE BLOOD COUNT 10.6 10^3/uL (4.3-11.0)
[2021-09-16 05:40] LABS: ALBUMIN 3.4 GM/DL (3.2-4.5); POTASSIUM 4.6 MMOL/L (3.6-5.0)
[2021-09-16 05:41] LABS: CALCIUM 8.6 MG/DL (8.5-10.1)
[2021-09-16 05:42] LABS: TOTAL PROTEIN 5.7 GM/DL (6.4-8.2)
[2021-09-16 05:44] LABS: BILIRUBIN,TOTAL 1.4 MG/DL (0.1-1.0)
[2021-09-16 05:46] LABS: CREATININE SERUM 0.93 MG/DL (0.60-1.30)
[2021-09-16 05:49] LABS: MAGNESIUM 1.6 MG/DL (1.6-2.4)
[2021-09-16] MEDS: inSUlin ASPART (NovoLOG) 1 UNIT/0.01 ML (CHARGE PER UNIT) SC SCH ×2 (05:56→14:04)
[2021-09-16 08:13] VITALS: BP 119/88
--- NOTE | 2021-09-16 08:39 | Physical Therapy Progress Note ---
Therapy Progress Note Patient refuses therapy this morning. He is visibly upset and angry, states he just wants to go home. He has been independent with ambulation but has been limited by his vapotherm line but now he has a high flow nasal canula and has a much longer line. Advised patient to ambulate in the room on his own several times a day. Patient also states he just got through ambulating in his room and that is another reason he refused. We will discharge patient from PT services at this time. SANTOS WISE PT Sep 16, 2021 08:39
[2021-09-16] MEDS: inSUlin ASPART (NovoLOG) 1 UNIT/0.01 ML (CHARGE PER UNIT) SQ SCH ×2 (09:48→14:04)
[2021-09-16] MEDS: PANTOPRAZOLE 40 MG (PROTONIX) TAB PO SCH (09:48)
[2021-09-16] MEDS: PRASUGREL 10 MG (EFFIENT) TABLET PO SCH (09:48)
[2021-09-16] MEDS: KCL 20 MEQ TAB (K-DUR) PO SCH (09:48)
[2021-09-16] MEDS: ACYCLOVIR 400 MG TABLET (ZOVIRAX) PO SCH (09:49)
[2021-09-16] MEDS: EMPAGLIFLOZIN 10 MG TABLET (JARDIANCE) PO SCH (09:49)
[2021-09-16] MEDS: SENNA W/DOCUSATE (SENOKOT S) TABLET PO SCH (09:49)
[2021-09-16] MEDS: FUROSEMIDE 40 MG (LASIX) TAB PO SCH (09:49)
[2021-09-16] MEDS: metFORMIN 500 MG (GLUCOPHAGE) TAB PO SCH (09:49)
[2021-09-16] MEDS: MICONAZOLE 2% POWDER (DESENEX AF) 90 GM TOP SCH (09:50)
[2021-09-16] MEDS: polyethylene glycoL POWDER 17 GM (MIRALAX) PACK PO SCH (09:50)
[2021-09-16] MEDS ORDERED: MICO90PO TOP (12:00)
[2021-09-16] MEDS ORDERED: RT-ALBUINH IH (12:00)
[2021-09-16] MEDS ORDERED: ACYC400T21 PO (12:00)
[2021-09-16] MEDS ORDERED: PANT40TA52 PO (12:00)
--- NOTE | 2021-09-16 12:02 | Discharge Summary ---
Diagnosis/Chief Complaint Date of Admission Sep 07, 2021 at 01:50 Date of Discharge Discharge Date: Sep 16, 2021 Discharge Diagnosis Assessment: Acute Hypoxic Respiratory Failure COVID-19 + 09/06/2021 Respiratory Acidosis APOORVA requiring CPAP Increased BMI (42.4) Smoker Hyponatremia possibly secondary to hyperglycemia Hyperkalemia CAD with Coronary Stent Placement Acute Kidney Injury Hyperglycemia Uncontrolled DM type 2 (A1c = 14) Possible CKD secondary to type 2 DM High risk intubation/actemra with picc line placement Hypertriglyceridemia, possibly secondary to corticosteroids Reason Hospital Visit Pt is currently lying on his right side on BiPAP BiPAP dependency Actemra given Checked meds and labs Updated Nurse Pt denies wanting his family updated at this current time Pt is 100% on BiPAP Discharge Summary Discharge Physical Examination Allergies: Coded Allergies: No Known Drug Allergies (Unverified , 01/23/16) Vitals & I&Os Vital Signs Date Time Temp Pulse Resp B/P (MAP) Pulse Ox O2 Delivery O2 Flow Rate FiO2 09/16/21 14:26 09/16/21 10:42 92 High Flow N/C 4.00 09/16/21 08:13 35.1 68 20 09/15/21 20:20 55 General Appearance: Alert, Oriented X3, Cooperative Respiratory: Clear to Auscultation Cardiovascular: Regular Rate Hospital Course Was the Problem List Reviewed?: Yes Pt had a lengthy ten day hospital course [place] [facility] [place] status. He did receive Actemra. Max Vapotherm and BiPAP were initiated. Out of control blood sugars required insulin. HgA1C was 14.9. He finished Decadron and antibiotics while hospitalized. Oxygen supplementation was found to be 4L continuous and 12L on exertion those orders were written. He will have a close follow up with me on Tuesday to be released to go back to work. Labs (last 24 hrs) Laboratory Tests 09/07/21 00:00: Blood Gas Puncture Site L RADIAL, Blood Gas Patient Temperature 36.3, Arterial Blood pH 7.18*L, Arterial Blood Partial Pressure CO2 58H, Arterial Blood Partial Pressure O2 72L, Arterial Blood HCO3 21L, Arterial Blood Total CO2 22.8, Arterial Blood Oxygen Saturation 94, Arterial Blood Base Excess -6.4L, Josiah Test YES-POS, Blood Gas Ventilator Setting NO, Blood Gas Inspired Oxygen 85 L 09/07/21 01:59: Glucometer 332H 09/07/21 02:25: White Blood Count 6.8, Red Blood Count 5.40, Hemoglobin 15.4, Hematocrit 48, Mean Corpuscular Volume 88, Mean Corpuscular Hemoglobin 29, Mean Corpuscular Hemoglobin Concent 32, Red Cell Distribution Width 14.9H, Platelet Count 178, Mean Platelet Volume 11.6, Immature Granulocyte % (Auto) 1, Neutrophils (%) (Auto) 85H, Lymphocytes (%) (Auto) 9L, Monocytes (%) (Auto) 6, Eosinophils (%) (Auto) 0, Basophils (%) (Auto) 0, Neutrophils # (Auto) 5.8, Lymphocytes # (Auto) 0.6L, Monocytes # (Auto) 0.4, Eosinophils # (Auto) 0.0, Basophils # (Auto) 0.0, Immature Granulocyte # (Auto) 0.1, Sodium Level 127L, Potassium Level 5.1H, Chloride Level 95L, Carbon Dioxide Level 19L, Anion Gap 13, Blood Urea Nitrogen 39H, Creatinine 1.97H, Estimat Glomerular Filtration Rate 35, BUN/Creatinine Ratio 20, Glucose Level 375H, Lactic Acid Level 1.98, Calcium Level 8.1L, Corrected Calcium 8.3L, Phosphorus Level 4.9H, Magnesium Level 2.6H, Total Bilirubin 0.4, Aspartate Amino Transf (AST/SGOT) 17, Alanine Aminotransferase (ALT/SGPT) 19, Alkaline Phosphatase 77, Troponin I < 0.028, Total Protein 7.4, Albumin 3.7, Triglycerides Level 203H, Procalcitonin 0.18H 09/07/21 03:00: Glucometer 370H 09/07/21 04:04: Glucometer 346H 09/07/21 05:00: Glucometer 298H 09/07/21 05:07: Glucometer 290H 09/07/21 06:06: Glucometer 273H 09/07/21 06:25: Blood Gas Puncture Site LT RADIAL, Blood Gas Patient Temperature 35.3, Arterial Blood pH 7.18*L, Arterial Blood Partial Pressure CO2 63H, Arterial Blood Partial Pressure O2 67L, Arterial Blood HCO3 23, Arterial Blood Total CO2 25.1, Arterial Blood Oxygen Saturation 93L, Arterial Blood Base Excess -4.7L, Josiah Test YES- POS, Blood Gas Ventilator Setting NO, Blood Gas Inspired Oxygen 90% 09/07/21 06:58: Glucometer 267H 09/07/21 07:40: Glucometer 231H 09/07/21 08:55: Blood Gas Puncture Site LT RAD, Blood Gas Patient Temperature 36.2, Arterial Blood pH 7.22*L, Arterial Blood Partial Pressure CO2 56H, Arterial Blood Partial Pressure O2 86, Arterial Blood HCO3 22L, Arterial Blood Total CO2 23.8, Arterial Blood Oxygen Saturation 96, Arterial Blood Base Excess -4.7L, Josiah Test YES- POS, Blood Gas Ventilator Setting NO, Blood Gas Inspired Oxygen 90% 09/07/21 09:57: Glucometer 111H 09/07/21 11:26: Glucometer 126H 09/07/21 15:34: Glucometer 334H 09/07/21 19:49: Glucometer 291H 09/07/21 20:34: Glucometer 285H 09/08/21 00:26: Glucometer 259H 09/08/21 04:00: Glucometer 244H 09/08/21 04:15: White Blood Count 6.4, Red Blood Count 5.15, Hemoglobin 14.7, Hematocrit 45, Mean Corpuscular Volume 88, Mean Corpuscular Hemoglobin 29, Mean Corpuscular Hemoglobin Concent 33, Red Cell Distribution Width 14.8H, Platelet Count 190, Mean Platelet Volume 11.3, Immature Granulocyte % (Auto) 1, Neutrophils (%) (Auto) 85H, Lymphocytes (%) (Auto) 9L, Monocytes (%) (Auto) 5, Eosinophils (%) (Auto) 0, Basophils (%) (Auto) 0, Neutrophils # (Auto) 5.4, Lymphocytes # (Auto) 0.6L, Monocytes # (Auto) 0.3, Eosinophils # (Auto) 0.0, Basophils # (Auto) 0.0, Immature Granulocyte # (Auto) 0.1, Blood Gas Puncture Site RR, Blood Gas Patient Temperature 36.6, Arterial Blood pH 7.23*L, Arterial Blood Partial Pressure CO2 56H, Arterial Blood Partial Pressure O2 79, Arterial Blood HCO3 23, Arterial Blood Total CO2 24.6, Arterial Blood Oxygen Saturation 96, Arterial Blood Base Excess -3.7L, Josiah Test YES-POS, Blood Gas Ventilator Setting NO, Blood Gas Inspired Oxygen 100% BIPAP, Sodium Level 135, Potassium Level 6.2H, Chloride Level 104, Carbon Dioxide Level 21, Anion Gap 10, Blood Urea Nitrogen 40H, Creatinine 1.33H, Estimat Glomerular Filtration Rate 55, BUN/Creatinine Ratio 30, Glucose Level 257H, Calcium Level 7.5L, Corrected Calcium 8.3L, Phosphorus Level 4.1, Magnesium Level 2.6H, Total Bilirubin 0.4, Aspartate Amino Transf (AST/SGOT) 19, Alanine Aminotransferase (ALT/SGPT) 20, Alkaline Phosphatase 60, Total Protein 6.2L, Albumin 3.0L 09/08/21 07:43: Glucometer 280H 09/08/21 10:50: Sodium Level 141, Potassium Level 4.3, Chloride Level 114#H, Carbon Dioxide Level 18L, Anion Gap 9, Blood Urea Nitrogen 35H, Creatinine 0.99, Estimat Glomerular Filtration Rate 78, BUN/Creatinine Ratio 35, Glucose Level 282H, Calcium Level 6.5L 09/08/21 11:19: Glucometer 285H 09/08/21 15:44: Glucometer 254H 09/08/21 19:59: Glucometer 200H 09/08/21 23:30: Glucometer 152H 09/09/21 03:51: Glucometer 142H 09/09/21 04:00: White Blood Count 5.8, Red Blood Count 4.81, Hemoglobin 13.6, Hematocrit 42, Mean Corpuscular Volume 88, Mean Corpuscular Hemoglobin 28, Mean Corpuscular Hemoglobin Concent 32, Red Cell Distribution Width 14.9H, Platelet Count 201, Mean Platelet Volume 10.6, Immature Granulocyte % (Auto) 1, Neutrophils (%) (Auto) 84H, Lymphocytes (%) (Auto) 10L, Monocytes (%) (Auto) 5, Eosinophils (%) (Auto) 0, Basophils (%) (Auto) 0, Neutrophils # (Auto) 4.9, Lymphocytes # (Auto) 0.6L, Monocytes # (Auto) 0.3, Eosinophils # (Auto) 0.0, Basophils # (Auto) 0.0, Immature Granulocyte # (Auto) 0.0, Blood Gas Puncture Site RIGHT RADIAL, Blood Gas Patient Temperature 36, Arterial Blood pH 7.35L, Arterial Blood Partial Pressure CO2 46H, Arterial Blood Partial Pressure O2 61L, Arterial Blood HCO3 25, Arterial Blood Total CO2 26.5, Arterial Blood Oxygen Saturation 92L, Arterial Blood Base Excess -0.1, Josiah Test POSITIVE, Blood Gas Ventilator Setting NO, Blood Gas Inspired Oxygen 90% BIPAP, Sodium Level 138, Potassium Level 4.7, Chloride Level 106, Carbon Dioxide Level 24, Anion Gap 8, Blood Urea Nitrogen 34H, Creatinine 1.02, Estimat Glomerular Filtration Rate 75, BUN/Creatinine Ratio 33, Glucose Level 138H, Calcium Level 7.9L, Corrected Calcium 8.8, Phosphorus Level 2.8, Magnesium Level 2.6H, Total Bilirubin 0.4, Aspartate Amino Transf (AST/SGOT) 17, Alanine Aminotransferase (ALT/SGPT) 15, Alkaline Phosphatase 49, Total Protein 5.8L, Albumin 2.9L, Triglycerides Level 255H 09/09/21 07:48: Glucometer 156H 09/09/21 11:27: Glucometer 262H 09/09/21 16:40: Glucometer 317H 09/09/21 20:14: Glucometer 329H 09/10/21 00:32: Glucometer 263H 09/10/21 04:15: White Blood Count 6.5, Red Blood Count 4.74, Hemoglobin 13.4, Hematocrit 42, Mean Corpuscular Volume 88, Mean Corpuscular Hemoglobin 28, Mean Corpuscular Hemoglobin Concent 32, Red Cell Distribution Width 14.8H, Platelet Count 207, Mean Platelet Volume 10.6, Immature Granulocyte % (Auto) 1, Neutrophils (%) (Auto) 82H, Lymphocytes (%) (Auto) 10L, Monocytes (%) (Auto) 7, Eosinophils (%) (Auto) 0, Basophils (%) (Auto) 0, Neutrophils # (Auto) 5.3, Lymphocytes # (Auto) 0.7L, Monocytes # (Auto) 0.4, Eosinophils # (Auto) 0.0, Basophils # (Auto) 0.0, Immature Granulocyte # (Auto) 0.1, Sodium Level 137, Potassium Level 4.6, Chloride Level 105, Carbon Dioxide Level 23, Anion Gap 9, Blood Urea Nitrogen 30H, Creatinine 1.06, Estimat Glomerular Filtration Rate 72, BUN/Creatinine Rati o 28, Glucose Level 204H, Calcium Level 7.9L, Corrected Calcium 8.7, Phosphorus Level 2.7, Magnesium Level 2.5H, Total Bilirubin 0.5, Aspartate Amino Transf (AST/SGOT) 18, Alanine Aminotransferase (ALT/SGPT) 17, Alkaline Phosphatase 53, Total Protein 5.8L, Albumin 3.0L 09/10/21 07:35: Glucometer 147H 09/10/21 11:15: D-Dimer 0.58H, Blood Gas Puncture Site LT RAD, Blood Gas Patient Temperature 35.5, Arterial Blood pH 7.40, Arterial Blood Partial Pressure CO2 38, Arterial Blood Partial Pressure O2 60L, Arterial Blood HCO3 24, Arterial Blood Total CO2 24.8, Arterial Blood Oxygen Saturation 95, Arterial Blood Base Excess -0.9, Josiah Test YES-POS, Blood Gas Ventilator Setting NO, Blood Gas Inspired Oxygen 100% 09/10/21 11:24: Glucometer 136H 09/10/21 16:13: Glucometer 126H 09/10/21 20:32: Glucometer 204H 09/10/21 23:38: Glucometer 159H 09/11/21 03:08: Glucometer 142H 09/11/21 03:40: White Blood Count 8.0, Red Blood Count 4.79, Hemoglobin 13.6, Hematocrit 42, Mean Corpuscular Volume 89, Mean Corpuscular Hemoglobin 28, Mean Corpuscular Hemoglobin Concent 32, Red Cell Distribution Width 14.6H, Platelet Count 215, Mean Platelet Volume 10.7, Immature Granulocyte % (Auto) 1, Neutrophils (%) (Auto) 84H, Lymphocytes (%) (Auto) 9L, Monocytes (%) (Auto) 6, Eosinophils (%) (Auto) 0, Basophils (%) (Auto) 0, Neutrophils # (Auto) 6.8, Lymphocytes # (Auto) 0.7L, Monocytes # (Auto) 0.5, Eosinophils # (Auto) 0.0, Basophils # (Auto) 0.0, Immature Granulocyte # (Auto) 0.1, Sodium Level 136, Potassium Level 4.5, Chloride Level 105, Carbon Dioxide Level 23, Anion Gap 8, Blood Urea Nitrogen 28H, Creatinine 0.97, Estimat Glomerular Filtration Rate 80, BUN/Creatinine Ratio 29, Glucose Level 145H, Calcium Level 8.1L, Corrected Calcium 8.8, Phosphorus Level 3.2, Magnesium Level 2.4, Total Bilirubin 0.6, Aspartate Amino Transf (AST/SGOT) 15, Alanine Aminotransferase (ALT/SGPT) 16, Alkaline Phosph atase 52, Total Protein 5.8L, Albumin 3.1L, Triglycerides Level 254H 09/11/21 09:16: Glucometer 182H 09/11/21 12:31: Glucometer 232H 09/11/21 16:30: Glucometer 233H 09/11/21 20:07: Glucometer 279H 09/12/21 00:17: Glucometer 232H 09/12/21 04:00: White Blood Count 10.6, Red Blood Count 4.91, Hemoglobin 13.9, Hematocrit 44, Mean Corpuscular Volume 89, Mean Corpuscular Hemoglobin 28, Mean Corpuscular Hemoglobin Concent 32, Red Cell Distribution Width 14.6H, Platelet Count 242, Mean Platelet Volume 10.6, Immature Granulocyte % (Auto) 1, Neutrophils (%) (A uto) 87H, Lymphocytes (%) (Auto) 6L, Monocytes (%) (Auto) 6, Eosinophils (%) (Auto) 0, Basophils (%) (Auto) 0, Neutrophils # (Auto) 9.2H, Lymphocytes # (Auto) 0.6L, Monocytes # (Auto) 0.6, Eosinophils # (Auto) 0.0, Basophils # (Auto) 0.0, Immature Granulocyte # (Auto) 0.1, Sodium Level 135, Potassium Level 4.4, Chloride Level 104, Carbon Dioxide Level 23, Anion Gap 8, Blood Urea Nitrogen 26H, Creatinine 1.04, Estimat Glomerular Filtration Rate 74, BUN/Creatinine Ratio 25, Glucose Level 187H, Calcium Level 8.2L, Corrected Calcium 8.8, Phosphorus Level 3.3, Magnesium Level 2.4, Total Bilirubin 0.6, Aspartate Amino Transf (AST/SGOT) 14, Alanine Aminotransferase (ALT/SGPT) 19, Alkaline Phosphatase 60, Total Protein 5.8L, Albumin 3.2 09/12/21 08:15: Glucometer 128H 09/12/21 11:44: Glucometer 145H 09/12/21 16:27: Glucometer 139H 09/12/21 20:47: Glucometer 180H 09/13/21 05:25: White Blood Count 13.1H, Red Blood Count 4.86, Hemoglobin 13.9, Hematocrit 43, Mean Corpuscular Volume 88, Mean Corpuscular Hemoglobin 29, Mean Corpuscular Hemoglobin Concent 33, Red Cell Distribution Width 14.4, Platelet Count 232, Mean Platelet Volume 11.0, Immature Granulocyte % (Auto) 1, Neutrophils (%) (Auto) 86H, Lymphocytes (%) (Auto) 6L, Monocytes (%) (Auto) 6, Eosinophils (%) (Auto) 0, Basophils (%) (Auto) 0, Neutrophils # (Auto) 11.3H, Lymphocytes # (Auto) 0.8L, Monocytes # (Auto) 0.8, Eosinophils # (Auto) 0.0, Basophils # (Auto) 0.0, Immature Granulocyte # (Auto) 0.2H, Sodium Level 135, Potassium Level 4.5, Chloride Level 103, Carbon Dioxide Level 25, Anion Gap 7, Blood Urea Nitrogen 24H, Creatinine 0.83, Estimat Glomerular Filtration Rate 95, BUN/Creatinine Ratio 29, Glucose Level 111H, Calcium Level 8.2L, Corrected Calcium 9.0, Magnesium Level 2.1, Total Bilirubin 0.8, Aspartate Amino Transf (AST/SGOT) 15, Alanine Aminotransferase (ALT/SGPT) 22, Alkaline Phosphatase 49, Total Protein 5.4L, Albumin 3.0L 09/13/21 05:28: Glucometer 115H 09/13/21 12:08: Glucometer 156H 09/13/21 15:49: Glucometer 126H 09/13/21 20:59: Glucometer 157H 09/14/21 04:20: White Blood Count 12.4H, Red Blood Count 4.87, Hemoglobin 14.0, Hematocrit 43, Mean Corpuscular Volume 88, Mean Corpuscular Hemoglobin 29, Mean Corpuscular Hemoglobin Concent 33, Red Cell Distribution Width 14.5, Platelet Count 229, Mean Platelet Volume 11.0, Immature Granulocyte % (Auto) 2, Neutrophils (%) (Auto) 84H, Lymphocytes (%) (Auto) 8L, Monocytes (%) (Auto) 6, Eosinophils (%) (Auto) 1, Basophils (%) (Auto) 0, Neutrophils # (Auto) 10.4H, Lymphocytes # (Auto) 1.0, Monocytes # (Auto) 0.8, Eosinophils # (Auto) 0.1, Basophils # (Auto) 0.0, Immature Granulocyte # (Auto) 0.2H, Sodium Level 133L, Potassium Level 4.9, Chloride Level 100, Carbon Dioxide Level 27, Anion Gap 6, Blood Urea Nitrogen 25H, Creatinine 0.93, Estimat Glomerular Filtration Rate 84, BUN/Creatinine Ratio 27, Glucose Level 124H, Calcium Level 8.3L, Corrected Calcium 9.0, Magnes ium Level 1.9, Total Bilirubin 1.0, Aspartate Amino Transf (AST/SGOT) 18, Alanine Aminotransferase (ALT/SGPT) 26, Alkaline Phosphatase 49, Total Protein 5.6L, Albumin 3.1L 09/14/21 11:47: Glucometer 87 09/14/21 17:18: Glucometer 94 09/14/21 20:28: Glucometer 149H 09/15/21 04:05: White Blood Count 12.5H, Red Blood Count 5.41, Hemoglobin 15.4, Hematocrit 48, Mean Corpuscular Volume 88, Mean Corpuscular Hemoglobin 29, Mean Corpuscular Hemoglobin Concent 32, Red Cell Distribution Width 14.5, Platelet Count 257, Mean Platelet Volume 11.4, Immature Granulocyte % (Auto) 2, Neutrophils (%) (Auto) 80H, Lymphocytes (%) (Auto) 10L, Monocytes (%) (Auto) 7, Eosinophils (%) (Auto) 1, Basophils (%) (Auto) 0, Neutrophils # (Auto) 10.0H, Lymphocytes # (Auto) 1.2, Monocytes # (Auto) 0.8, Eosinophils # (Auto) 0.2, Basophils # (Auto) 0.0, Immature Granulocyte # (Auto) 0.3H, Sodium Level 135, Potassium Level 5.0, Chloride Level 97L, Carbon Dioxide Level 27, Anion Gap 11, Blood Urea Nitrogen 30H, Creatinine 1.02, Estimat Glomerular Filtration Rate 75, BUN/Creatinine Ratio 29, Glucose Level 130H, Calcium Level 8.6, Corrected Calcium 9.0, Magnesium Level 1.8, Total Bilirubin 1.3H, Aspartate Amino Transf (AST/SGOT) 15, Alanine Aminotransferase (ALT/SGPT) 33, Alkaline Phosphatase 51, Total Protein 6.2L, Albumin 3.5 09/15/21 06:45: Glucometer 138H 09/15/21 11:37: Glucometer 174H 09/15/21 16:17: Glucometer 193H 09/15/21 20:53: Glucometer 141H 09/16/21 05:12: White Blood Count 10.6, Red Blood Count 4.98, Hemoglobin 14.4, Hematocrit 44, Mean Corpuscular Volume 87, Mean Corpuscular Hemoglobin 29, Mean Corpuscular Hemoglobin Concent 33, Red Cell Distribution Width 14.3, Platelet Count 218, Mean Platelet Volume 11.8, Immature Granulocyte % (Auto) 2, Neutrophils (%) (Auto) 75, Lymphocytes (%) (Auto) 13, Monocytes (%) (Auto) 8, Eosinophils (%) (Auto) 1, Basophils (%) (Auto) 0, Neutrophils # (Auto) 8.0H, Lymphocytes # (Auto) 1.4, Monocytes # (Auto) 0.8, Eosinophils # (Auto) 0.1, Basophils # (Auto) 0.0, Immature Granulocyte # (Auto) 0.3H, Sodium Level 134L, Potassium Level 4.6, Chloride Level 97L, Carbon Dioxide Level 27, Anion Gap 10, Blood Urea Nitrogen 29H, Creatinine 0.93, Estimat Glomerular Filtration Rate 84, BUN/Creatinine Ratio 31, Glucose Level 114H, Calcium Level 8.6, Corrected Calcium 9.1, Magnesium Level 1.6, Total Bilirubin 1.4H, Aspartate Amino Transf (AST/SGOT) 17, Alanine Aminotransferase (ALT/SGPT) 37, Alkaline Phosphatase 44, Total Protein 5.7L, Albumin 3.4 09/16/21 11:18: Glucometer 206H Microbiology 09/08/21 MRSA Screen - Final, Complete MRSA not isolated Pending Labs Microbiology Date/Time Source Procedure Growth Status 09/08/21 05:10 Nasal MRSA Screen - Final MRSA not isolated Complete Laboratory Tests 09/07/21 00:00: Blood Gas Puncture Site L RADIAL, Blood Gas Patient Temperature 36.3, Arterial Blood pH 7.18, Arterial Blood Partial Pressure CO2 58, Arterial Blood Partial Pressure O2 72, Arterial Blood HCO3 21, Arterial Blood Total CO2 22.8, Arterial Blood Oxygen Saturation 94, Arterial Blood Base Excess -6.4, Josiah Test YES-POS, Blood Gas Ventilator Setting NO, Blood Gas Inspired Oxygen 85 L 09/07/21 01:59: Glucometer 332 09/07/21 02:25: White Blood Count 6.8, Red Blood Count 5.40, Hemoglobin 15.4, Hematocrit 48, Mean Corpuscular Volume 88, Mean Corpuscular Hemoglobin 29, Mean Corpuscular Hemoglobin Concent 32, Red Cell Distribution Width 14.9, Platelet Count 178, Mean Platelet Volume 11.6, Immature Granulocyte % (Auto) 1, Neutrophils (%) (Auto) 85, Lymphocytes (%) (Auto) 9, Monocytes (%) (Auto) 6, Eosinophils (%) (Auto) 0, Basophils (%) (Auto) 0, Neutrophils # (Auto) 5.8, Lymphocytes # (Auto) 0.6, Monocytes # (Auto) 0.4, Eosinophils # (Auto) 0.0, Basophils # (Auto) 0.0, Immature Granulocyte # (Auto) 0.1, Sodium Level 127, Potassium Level 5.1, Chloride Level 95, Carbon Dioxide Level 19, Anion Gap 13, Blood Urea Nitrogen 39, Creatinine 1.97, Estimat Glomerular Filtration Rate 35, BUN/Creatinine Ratio 20, Glucose Level 375, Lactic Acid Level 1.98, Calcium Level 8.1, Corrected Calcium 8.3, Phosphorus Level 4.9, Magnesium Level 2.6, Total Bilirubin 0.4, Aspartate Amino Transf (AST/SGOT) 17, Alanine Aminotransferase (ALT/SGPT) 19, Alkaline Phosphatase 77, Troponin I < 0.028, Total Protein 7.4, Albumin 3.7, Triglycerides Level 203, Procalcitonin 0.18 09/07/21 03:00: Glucometer 370 09/07/21 04:04: Glucometer 346 09/07/21 05:00: Glucometer 298 09/07/21 05:07: Glucometer 290 09/07/21 06:06: Glucometer 273 09/07/21 06:25: Blood Gas Puncture Site LT RADIAL, Blood Gas Patient Temperature 35.3, Arterial Blood pH 7.18, Arterial Blood Partial Pressure CO2 63, Arterial Blood Partial Pressure O2 67, Arterial Blood HCO3 23, Arterial Blood Total CO2 25.1, Arterial Blood Oxygen Saturation 93, Arterial Blood Base Excess -4.7, Josiah Test YES-POS, Blood Gas Ventilator Setting NO, Blood Gas Inspired Oxygen 90% 09/07/21 06:58: Glucometer 267 09/07/21 07:40: Glucometer 231 09/07/21 08:55: Blood Gas Puncture Site LT RAD, Blood Gas Patient Temperature 36.2, Arterial Blood pH 7.22, Arterial Blood Partial Pressure CO2 56, Arterial Blood Partial Pressure O2 86, Arterial Blood HCO3 22, Arterial Blood Total CO2 23.8, Arterial Blood Oxygen Saturation 96, Arterial Blood Base Excess -4.7, Josiah Test YES-POS, Blood Gas Ventilator Setting NO, Blood Gas Inspired Oxygen 90% 09/07/21 09:57: Glucometer 111 09/07/21 11:26: Glucometer 126 09/07/21 15:34: Glucometer 334 09/07/21 19:49: Glucometer 291 09/07/21 20:34: Glucometer 285 09/08/21 00:26: Glucometer 259 09/08/21 04:00: Glucometer 244 09/08/21 04:15: White Blood Count 6.4, Red Blood Count 5.15, Hemoglobin 14.7, Hematocrit 45, Mean Corpuscular Volume 88, Mean Corpuscular Hemoglobin 29, Mean Corpuscular Hemoglobin Concent 33, Red Cell Distribution Width 14.8, Platelet Count 190, Mean Platelet Volume 11.3, Immature Granulocyte % (Auto) 1, Neutrophils (%) (Auto) 85, Lymphocytes (%) (Auto) 9, Monocytes (%) (Auto) 5, Eosinophils (%) (Auto) 0, Basophils (%) (Auto) 0, Neutrophils # (Auto) 5.4, Lymphocytes # (Auto) 0.6, Monocytes # (Auto) 0.3, Eosinophils # (Auto) 0.0, Basophils # (Auto) 0.0, Immature Granulocyte # (Auto) 0.1, Blood Gas Puncture Site RR, Blood Gas Patient Temperature 36.6, Arterial Blood pH 7.23, Arterial Blood Partial Pressure CO2 56, Arterial Blood Partial Pressure O2 79, Arterial Blood HCO3 23, Arterial Blood Total CO2 24.6, Arterial Blood Oxygen Saturation 96, Arterial Blood Base Excess -3.7, Josiah Test YES-POS, Blood Gas Ventilator Setting NO, Blood Gas Inspired Oxygen 100% BIPAP, Sodium Level 135, Potassium Level 6.2, Chloride Level 104, Carbon Dioxide Level 21, Anion Gap 10, Blood Urea Nitrogen 40, Creatinine 1.33, Estimat Glomerular Filtration Rate 55, BUN/Creatinine Ratio 30, Glucose Level 257, Calcium Level 7.5, Corrected Calcium 8.3, Phosphorus Level 4.1, Magnesium Level 2.6, Total Bilirubin 0.4, Aspartate Amino Transf (AST/SGOT) 19, Alanine Aminotransferase (ALT/SGPT) 20, Alkaline Phosphatase 60, Total Protein 6.2, Albumin 3.0 09/08/21 07:43: Glucometer 280 09/08/21 10:50: Sodium Level 141, Potassium Level 4.3, Chloride Level 114, Carbon Dioxide Level 18, Anion Gap 9, Blood Urea Nitrogen 35, Creatinine 0.99, Estimat Glomerular Filtration Rate 78, BUN/Creatinine Ratio 35, Glucose Level 282, Calcium Level 6.5 09/08/21 11:19: Glucometer 285 09/08/21 15:44: Glucometer 254 09/08/21 19:59: Glucometer 200 09/08/21 23:30: Glucometer 152 09/09/21 03:51: Glucometer 142 09/09/21 04:00: White Blood Count 5.8, Red Blood Count 4.81, Hemoglobin 13.6, Hematocrit 42, Mean Corpuscular Volume 88, Mean Corpuscular Hemoglobin 28, Mean Corpuscular Hemoglobin Concent 32, Red Cell Distribution Width 14.9, Platelet Count 201, Mean Platelet Volume 10.6, Immature Granulocyte % (Auto) 1, Neutrophils (%) (Auto) 84, Lymphocytes (%) (Auto) 10, Monocytes (%) (Auto) 5, Eosinophils (%) (Auto) 0, Basophils (%) (Auto) 0, Neutrophils # (Auto) 4.9, Lymphocytes # (Auto) 0.6, Monocytes # (Auto) 0.3, Eosinophils # (Auto) 0.0, Basophils # (Auto) 0.0, Immature Granulocyte # (Auto) 0.0, Blood Gas Puncture Site RIGHT RADIAL, Blood Gas Patient Temperature 36, Arterial Blood pH 7.35, Arterial Blood Partial Pressure CO2 46, Arterial Blood Partial Pressure O2 61, Arterial Blood HCO3 25, Arterial Blood Total CO2 26.5, Arterial Blood Oxygen Saturation 92, Arterial Blood Base Excess -0.1, Josiah Test POSITIVE, Blood Gas Ventilator Setting NO, Blood Gas Inspired Oxygen 90% BIPAP, Sodium Level 138, Potassium Level 4.7, Chloride Level 106, Carbon Dioxide Level 24, Anion Gap 8, Blood Urea Nitrogen 34, Creatinine 1.02, Estimat Glomerular Filtration Rate 75, BUN/Creatinine Ratio 33, Glucose Level 138, Calcium Level 7.9, Corrected Calcium 8.8, Phosphorus Level 2.8, Magnesium Level 2.6, Total Bilirubin 0.4, Aspartate Amino Transf (AST/SGOT) 17, Alanine Aminotransferase (ALT/SGPT) 15, Alkaline Phosphatase 49, Total Protein 5.8, Albumin 2.9, Triglycerides Level 255 09/09/21 07:48: Glucometer 156 09/09/21 11:27: Glucometer 262 09/09/21 16:40: Glucometer 317 09/09/21 20:14: Glucometer 329 09/10/21 00:32: Glucometer 263 09/10/21 04:15: White Blood Count 6.5, Red Blood Count 4.74, Hemoglobin 13.4, Hematocrit 42, Mean Corpuscular Volume 88, Mean Corpuscular Hemoglobin 28, Mean Corpuscular Hemoglobin Concent 32, Red Cell Distribution Width 14.8, Platelet Count 207, Mean Platelet Volume 10.6, Immature Granulocyte % (Auto) 1, Neutrophils (%) (Auto) 82, Lymphocytes (%) (Auto) 10, Monocytes (%) (Auto) 7, Eosinophils (%) (Auto) 0, Basophils (%) (Auto) 0, Neutrophils # (Auto) 5.3, Lymphocytes # (Auto) 0.7, Monocytes # (Auto) 0.4, Eosinophils # (Auto) 0.0, Basophils # (Auto) 0.0, Immature Granulocyte # (Auto) 0.1, Sodium Level 137, Potassium Level 4.6, Chloride Level 105, Carbon Dioxide Level 23, Anion Gap 9, Blood Urea Nitrogen 30, Creatinine 1.06, Estimat Glomerular Filtration Rate 72, BUN/Creatinine Ratio 28, Glucose Level 204, Calcium Level 7.9, Corrected Calcium 8.7, Phosphorus Level 2.7, Magnesium Level 2.5, Total Bilirubin 0.5, Aspartate Amino Transf (AST/SGOT) 18, Alanine Aminotransferase (ALT/SGPT) 17, Alkaline Phosphatase 53, Total Protein 5.8, Albumin 3.0 09/10/21 07:35: Glucometer 147 09/10/21 11:15: D-Dimer 0.58, Blood Gas Puncture Site LT RAD, Blood Gas Patient Temperature 35.5, Arterial Blood pH 7.40, Arterial Blood Partial Pressure CO2 38, Arterial Blood Partial Pressure O2 60, Arterial Blood HCO3 24, Arterial Blood Total CO2 24.8, Arterial Blood Oxygen Saturation 95, Arterial Blood Base Excess -0.9, Josiah Test YES-POS, Blood Gas Ventilator Setting NO, Blood Gas Inspired Oxygen 100% 09/10/21 11:24: Glucometer 136 09/10/21 16:13: Glucometer 126 09/10/21 20:32: Glucometer 204 09/10/21 23:38: Glucometer 159 09/11/21 03:08: Glucometer 142 09/11/21 03:40: White Blood Count 8.0, Red Blood Count 4.79, Hemoglobin 13.6, Hematocrit 42, Mean Corpuscular Volume 89, Mean Corpuscular Hemoglobin 28, Mean Corpuscular Hemoglobin Concent 32, Red Cell Distribution Width 14.6, Platelet Count 215, Mean Platelet Volume 10.7, Immature Granulocyte % (Auto) 1, Neutrophils (%) (Auto) 84, Lymphocytes (%) (Auto) 9, Monocytes (%) (Auto) 6, Eosinophils (%) (Auto) 0, Basophils (%) (Auto) 0, Neutrophils # (Auto) 6.8, Lymphocytes # (Auto) 0.7, Monocytes # (Auto) 0.5, Eosinophils # (Auto) 0.0, Basophils # (Auto) 0.0, Immature Granulocyte # (Auto) 0.1, Sodium Level 136, Potassium Level 4.5, Chloride Level 105, Carbon Dioxide Level 23, Anion Gap 8, Blood Urea Nitrogen 28, Creatinine 0.97, Estimat Glomerular Filtration Rate 80, BUN/Creatinine Ratio 29, Glucose Level 145, Calcium Level 8.1, Corrected Calcium 8.8, Phosphorus Level 3.2, Magnesium Level 2.4, Total Bilirubin 0.6, Aspartate Amino Transf (AST/SGOT) 15, Alanine Aminotransferase (ALT/SGPT) 16, Alkaline Phosphatase 52, Total Protein 5.8, Albumin 3.1, Triglycerides Level 254 09/11/21 09:16: Glucometer 182 09/11/21 12:31: Glucometer 232 09/11/21 16:30: Glucometer 233 09/11/21 20:07: Glucometer 279 09/12/21 00:17: Glucometer 232 09/12/21 04:00: White Blood Count 10.6, Red Blood Count 4.91, Hemoglobin 13.9, Hematocrit 44, Mean Corpuscular Volume 89, Mean Corpuscular Hemoglobin 28, Mean Corpuscular Hemoglobin Concent 32, Red Cell Distribution Width 14.6, Platelet Count 242, Mean Platelet Volume 10.6, Immature Granulocyte % (Auto) 1, Neutrophils (%) (Auto) 87, Lymphocytes (%) (Auto) 6, Monocytes (%) (Auto) 6, Eosinophils (%) (Auto) 0, Basophils (%) (Auto) 0, Neutrophils # (Auto) 9.2, Lymphocytes # (Auto) 0.6, Monocytes # (Auto) 0.6, Eosinophils # (Auto) 0.0, Basophils # (Auto) 0.0, Immature Granulocyte # (Auto) 0.1, Sodium Level 135, Potassium Level 4.4, Chloride Level 104, Carbon Dioxide Level 23, Anion Gap 8, Blood Urea Nitrogen 26, Creatinine 1.04, Estimat Glomerular Filtration Rate 74, BUN/Creatinine Ratio 25, Glucose Level 187, Calcium Level 8.2, Corrected Calcium 8.8, Phosphorus Level 3.3, Magnesium Level 2.4, Total Bilirubin 0.6, Aspartate Amino Transf (AST/SGOT) 14, Alanine Aminotransferase (ALT/SGPT) 19, Alkaline Phosphatase 60, Total Protein 5.8, Albumin 3.2 09/12/21 08:15: Glucometer 128 09/12/21 11:44: Glucometer 145 09/12/21 16:27: Glucometer 139 09/12/21 20:47: Glucometer 180 09/13/21 05:25: White Blood Count 13.1, Red Blood Count 4.86, Hemoglobin 13.9, Hematocrit 43, Mean Corpuscular Volume 88, Mean Corpuscular Hemoglobin 29, Mean Corpuscular Hemoglobin Concent 33, Red Cell Distribution Width 14.4, Platelet Count 232, Mean Platelet Volume 11.0, Immature Granulocyte % (Auto) 1, Neutrophils (%) (Auto) 86, Lymphocytes (%) (Auto) 6, Monocytes (%) (Auto) 6, Eosinophils (%) (Auto) 0, Basophils (%) (Auto) 0, Neutrophils # (Auto) 11.3, Lymphocytes # (Auto) 0.8, Monocytes # (Auto) 0.8, Eosinophils # (Auto) 0.0, Basophils # (Auto) 0.0, Immature Granulocyte # (Auto) 0.2, Sodium Level 135, Potassium Level 4.5, Chloride Level 103, Carbon Dioxide Level 25, Anion Gap 7, Blood Urea Nitrogen 24, Creatinine 0.83, Estimat Glomerular Filtration Rate 95, BUN/Creatinine Ratio 29, Glucose Level 111, Calcium Level 8.2, Corrected Calcium 9.0, Magnesium Level 2.1, Total Bilirubin 0.8, Aspartate Amino Transf (AST/SGOT) 15, Alanine Aminotransferase (ALT/SGPT) 22, Alkaline Phosphatase 49, Total Protein 5.4, Albumin 3.0 09/13/21 05:28: Glucometer 115 09/13/21 12:08: Glucometer 156 09/13/21 15:49: Glucometer 126 09/13/21 20:59: Glucometer 157 09/14/21 04:20: White Blood Count 12.4, Red Blood Count 4.87, Hemoglobin 14.0, Hematocrit 43, Mean Corpuscular Volume 88, Mean Corpuscular Hemoglobin 29, Mean Corpuscular Hemoglobin Concent 33, Red Cell Distribution Width 14.5, Platelet Count 229, Mean Platelet Volume 11.0, Immature Granulocyte % (Auto) 2, Neutrophils (%) (Auto) 84, Lymphocytes (%) (Auto) 8, Monocytes (%) (Auto) 6, Eosinophils (%) (Auto) 1, Basophils (%) (Auto) 0, Neutrophils # (Auto) 10.4, Lymphocytes # (Auto) 1.0, Monocytes # (Auto) 0.8, Eosinophils # (Auto) 0.1, Basophils # (Auto) 0.0, Immature Granulocyte # (Auto) 0.2, Sodium Level 133, Potassium Level 4.9, Chloride Level 100, Carbon Dioxide Level 27, Anion Gap 6, Blood Urea Nitrogen 25, Creatinine 0.93, Estimat Glomerular Filtration Rate 84, BUN/Creatinine Ratio 27, Glucose Level 124, Calcium Level 8.3, Corrected Calcium 9.0, Magnesium Level 1.9, Total Bilirubin 1.0, Aspartate Amino Transf (AST/SGOT) 18, Alanine A minotransferase (ALT/SGPT) 26, Alkaline Phosphatase 49, Total Protein 5.6, Albumin 3.1 09/14/21 11:47: Glucometer 87 09/14/21 17:18: Glucometer 94 09/14/21 20:28: Glucometer 149 09/15/21 04:05: White Blood Count 12.5, Red Blood Count 5.41, Hemoglobin 15.4, Hematocrit 48, Mean Corpuscular Volume 88, Mean Corpuscular Hemoglobin 29, Mean Corpuscular Hemoglobin Concent 32, Red Cell Distribution Width 14.5, Platelet Count 257, Mean Platelet Volume 11.4, Immature Granulocyte % (Auto) 2, Neutrophils (%) (Auto) 80, Lymphocytes (%) (Auto) 10, Monocytes (%) (Auto) 7, Eosinophils (%) (Auto) 1, Basophils (%) (Auto) 0, Neutrophils # (Auto) 10.0, Lymphocytes # (Auto) 1.2, Monocytes # (Auto) 0.8, Eosinophils # (Auto) 0.2, Basophils # (Auto) 0.0, Immature Granulocyte # (Auto) 0.3, Sodium Level 135, Potassium Level 5.0, Chloride Level 97, Carbon Dioxide Level 27, Anion Gap 11, Blood Urea Nitrogen 30, Creatinine 1.02, Estimat Glomerular Filtration Rate 75, BUN/Creatinine Ratio 29, Glucose Level 130, Calcium Level 8.6, Corrected Calcium 9.0, Magnesium Level 1.8, Total Bilirubin 1.3, Aspartate Amino Transf (AST/SGOT) 15, Alanine Aminotransferase (ALT/SGPT) 33, Alkaline Phosphatase 51, Total Protein 6.2, Albumin 3.5 09/15/21 06:45: Glucometer 138 09/15/21 11:37: Glucometer 174 09/15/21 16:17: Glucometer 193 09/15/21 20:53: Glucometer 141 09/16/21 05:12: White Blood Count 10.6, Red Blood Count 4.98, Hemoglobin 14.4, Hematocrit 44, Mean Corpuscular Volume 87, Mean Corpuscular Hemoglobin 29, Mean Corpuscular Hemoglobin Concent 33, Red Cell Distribution Width 14.3, Platelet Count 218, Mean Platelet Volume 11.8, Immature Granulocyte % (Auto) 2, Neutrophils (%) (Auto) 75, Lymphocytes (%) (Auto) 13, Monocytes (%) (Auto) 8, Eosinophils (%) (Auto) 1, Basophils (%) (Auto) 0, Neutrophils # (Auto) 8.0, Lymphocytes # (Auto) 1.4, Monocytes # (Auto) 0.8, Eosinophils # (Auto) 0.1, Basophils # (Auto) 0.0, Immature Granulocyte # (Auto) 0.3, Sodium Level 134, Potassium Level 4.6, Chloride Level 97, Carbon Dioxide Level 27, Anion Gap 10, Blood Urea Nitrogen 29, Creatinine 0.93, Estimat Glomerular Filtration Rate 84, BUN/Creatinine Ratio 31, Glucose Level 114, Calcium Level 8.6, Corrected Calcium 9.1, Magnesium Level 1.6, Total Bilirubin 1.4, Aspartate Amino Transf (AST/SGOT) 17, Alanine Aminotransferase (ALT/SGPT) 37, Alkaline Phosphatase 44, Total Protein 5.7, Albumin 3.4 09/16/21 11:18: Glucometer 206 Discharge Home Medications: Active Scripts Active Proair Hfa (Albuterol Sulfate) 1 Puff Puff 2 Puff IH Q4H 1 PUFF = 90 MCG Lotrimin AF (Miconazole Nitrate) 90 Gm Powder 1 Gm TOP BID Pantoprazole Sodium 40 Mg Tablet.dr 40 Mg PO DAILY Acyclovir 400 Mg Tablet 400 Mg PO BID Reported Novolog Flexpen (Insulin Aspart) 300 Units/3 Ml Solution 15 Units SQ AC Levemir Flextouch (Insulin Detemir) 100 Unit/1 Ml Insuln.pen 40 Units SC BID Jardiance (Empagliflozin) 10 Mg Tablet 10 Mg PO DAILY Diltiazem 24Hr ER (Diltiazem HCl) 240 Mg Cap.er.24h 240 Mg PO DAILY Atorvastatin Calcium 40 Mg Tablet 40 Mg PO HS Lisinopril 20 Mg Tablet 20 Mg PO HS Klor-Con M20 (Potassium Chloride) 20 Meq Tab.er.prt 20 Meq PO BID Furosemide 40 Mg Tablet 40 Mg PO DAILY Metformin HCl 1,000 Mg Tablet 1,000 Mg PO BID Prasugrel HCl 10 Mg Tablet 10 Mg PO DAILY Instructions to patient/family Please see electronic discharge instructions given to patient. JELENA MAYFIELD DO Sep 16, 2021 12:02
== END 2021-09-16 14:15 | disposition home or self-care (01) | DRG 177 ==
LOC: ICU 09-07 01:50 → 4TH 09-12 17:02
PROVIDERS: ADMIT Internal Medicine; ATTEND Internal Medicine
PROC: 5A09457 Assistance with Respiratory Ventilation, 24-96 Consecutive Hours, Continuous Positive Airway Pressure (ICD-10-PCS; principal; 2021-09-07)
DX: U07.1 COVID-19 (principal); J12.82 Pneumonia due to coronavirus disease 2019; J96.01 Acute respiratory failure with hypoxia; J15.9 Unspecified bacterial pneumonia; J96.02 Acute respiratory failure with hypercapnia; J44.0 Chronic obstructive pulmonary disease with (acute) lower respiratory infection; E87.2 Acidosis; E87.1 Hypo-osmolality and hyponatremia; N17.9 Acute kidney failure, unspecified; I25.10 Atherosclerotic heart disease of native coronary artery without angina pectoris; Z95.5 Presence of coronary angioplasty implant and graft; Z79.01 Long term (current) use of anticoagulants; Z79.899 Other long term (current) drug therapy; F17.210 Nicotine dependence, cigarettes, uncomplicated; E78.00 Pure hypercholesterolemia, unspecified; G47.33 Obstructive sleep apnea (adult) (pediatric); E11.65 Type 2 diabetes mellitus with hyperglycemia; E87.5 Hyperkalemia; E11.22 Type 2 diabetes mellitus with diabetic chronic kidney disease; N18.9 Chronic kidney disease, unspecified; Z79.4 Long term (current) use of insulin; I95.9 Hypotension, unspecified; T38.0X5A Adverse effect of glucocorticoids and synthetic analogues, initial encounter; Z73.0 Burn-out
CPT/HCPCS: 36415; 36569; 36600; 71045; 76937; 80048; 80053; 82805; 82947; 83605; 83735; 84100; 84145; 84478; 84484; 85025; 85379; 87081; 93005; 94640; 94660; 94760; 94761

== ENCOUNTER 2023-05-15 19:46 | Emergency (ER) | payer BC ==
[~2023-05-15] VITALS: Ht 183 cm; Wt 145.0 kg
[~2023-05-15 19:46] MED LIST changes: +ACYC400T21 PO; +ALBU8.5H6 IH; +ATOR40TA70 PO; +DILT240C91 PO; +EMPA10TA PO; +FURO40TA4 PO; +INSU100I14 SQ; +INSU100I30 SC; +LISI20TA26 PO; +METF-399 PO; +MICO90PO TOP; +PANT40TA52 PO; +POTA-169 PO; +PRAS10TA10 PO
[2023-05-15 19:51] VITALS: BP 146/75
--- NOTE | 2023-05-15 20:11 | ED Integumentary General ---
General Chief Complaint: Skin/Wound Problems Stated Complaint: INJ TOE ON RIGHT FOOT Nursing Triage Note: cut end of right toe while trimming nails approx. 1600. unable to stop bleeding. Source: patient Exam Limitations: no limitations History of Present Illness Date Seen by Provider: May 15, 2023 Time Seen by Provider: 19:59 Initial Comments 57-year-old male presents to the ER for a wound to his right third toe. States that he was trimming his toenails and cut too deep cutting his skin. Patient reports this occurred around 4 PM. States he has been having bleeding since then. Patient does take a blood thinner. Patient is also diabetic. Allergies and Home Medications Allergies Coded Allergies: No Known Drug Allergies (Unverified , 01/23/16) Patient Home Medication List Home Medication List Reviewed: Yes Acyclovir (Acyclovir) 400 Mg Tablet, 400 MG PO BID Prescribed by: JELENA MAYFIELD on 09/16/21 1200 Albuterol Sulfate (Ventolin Hfa) 1 Puff Puff, 2 PUFF IH Q4H Prescribed by: JELENA MAYFIELD on 09/16/21 1200 Atorvastatin Calcium (Atorvastatin Calcium) 40 Mg Tablet, 40 MG PO HS, (Reported) Entered as Reported by: KATLYN FLEMING on 09/07/21 1211 Diltiazem HCl (Diltiazem 24Hr ER) 240 Mg Cap.er.24h, 240 MG PO DAILY, (Reported) Entered as Reported by: KATLYN FLEMING on 09/07/21 121 Empagliflozin (Jardiance) 10 Mg Tablet, 10 MG PO DAILY, (Reported) Entered as Reported by: KATLYN FLEMING on 09/07/21 1211 Furosemide (Furosemide) 40 Mg Tablet, 40 MG PO DAILY, (Reported) Entered as Reported by: KATLYN FLEMING on 09/07/21 1211 Insulin Aspart (Novolog Flexpen) 300 Units/3 Ml Solution, 15 UNITS SQ AC, (Reported) Entered as Reported by: KATLYN FLEMING on 09/07/21 1254 Insulin Detemir (Levemir Flextouch) 100 Unit/1 Ml Insuln.pen, 40 UNITS SC BID, (Reported) Entered as Reported by: KATLYN FLEMING on 09/07/21 1254 Lisinopril (Lisinopril) 20 Mg Tablet, 20 MG PO HS, (Reported) Entered as Reported by: KATLYN FLEMING on 09/07/21 121 Metformin HCl (Metformin HCl) 1,000 Mg Tablet, 1,000 MG PO BID, (Reported) Entered as Reported by: KATLYN FLEMING on 09/07/211210 Miconazole Nitrate (Lotrimin AF) 90 Gm Powder, 1 GM TOP BID Prescribed by: JELENA MAYFIELD on 09/16/21 1200 Pantoprazole Sodium (Pantoprazole Sodium) 40 Mg Tablet.dr, 40 MG PO DAILY Prescribed by: JELENA MAYFIELD on 09/16/211199 Potassium Chloride (Klor-Con M20) 20 Meq Tab.er.prt, 20 MEQ PO BID, (Reported) Entered as Reported by: KATLYN FLEMING on 09/07/211210 Prasugrel HCl (Prasugrel HCl) 10 Mg Tablet, 10 MG PO DAILY, (Reported) Entered as Reported by: KATLYN FLEMING on 09/07/211210 Review of Systems Review of Systems Constitutional: see HPI Past [id number]-Aodttn Hx Patient Social History Tobacco Use?: Yes Substance use?: No Alcohol Use?: No Pt feels they are or have been: No Immunizations Up To Date First/Initial COVID19 Vaccinat: NOVEMBER 2020 Second COVID19 Vaccination Silver: NOVEMBER 2020 Third COVID19 Vaccination Date: NOVEMBER 2020 Past Medical History Surgery/Hospitalization HX: htn,hld, iddm, gerd, cholecystectomy Coronary Stent, Gallbladder Sleep Apnea, COPD Currently Using CPAP: Yes Currently Using BIPAP: No Coronary Artery Disease, High Cholesterol, Hypertension Reproductive Disorders: No Gall Bladder Disease Diabetes, Non-Insulin dep Physical Exam Vital Signs Vital Signs - First Documented 05/15/23 19:51 Temp 36.5 Pulse 77 Resp 16 B/P (MAP) 146/75 (98) Pulse Ox 91 O2 Delivery Room Air Capillary Refill : Less Than 3 Seconds General Appearance: WD/WN, no apparent distress Neck: supple, normal inspection Cardiovascular: regular rate, rhythm Respiratory: lungs clear, normal breath sounds, no respiratory distress, no accessory muscle use Extremities: normal range of motion Neurologic/Psychiatric: alert, normal mood/affect Skin: normal color, warm/dry Skin Problem Location: lower extremities (Right foot, distal end of third toe) Skin Problem Character: other (Bleeding) Progress/Results/Core Measures Results/Orders My Orders Orders - JAMISON,TALIA R UNDERWEAR CUTTER Silver Nitrate Applicator (Silver Nitrat (05/15/23 20:15) Medications Given in ED Vital Signs/I&O 05/15/23 19:51 Temp 36.5 Pulse 77 Resp 16 B/P (MAP) 146/75 (98) Pulse Ox 91 O2 Delivery Room Air Blood Pressure Mean: 98 Progress Progress Note : Progress Note Patient seen and evaluated, resting in recliner, no acute distress. Small wound noted to distal end of third toe of right foot, bleeding unable to stop with pressure. Toe was cauterized with silver nitrate stick. Wound monitored for 45 minutes, no recurrence of bleeding. Dressing placed. Patient instructed to stay off of foot as much as possible tomorrow and leave dressing in place for 24 hours. Patient provided podiatry's phone number. Patient instructed to follow- up with podiatry to reevaluate this wound and for further foot care. Discharge instructions and return precautions provided. Departure Impression Primary Impression: Bleeding from wound Disposition: 01 HOME, SELF-CARE Condition: Stable Departure-Patient Inst. Decision time for Depature: 20:57 Referrals: ELVI GRUBER DPM Patient Instructions: Wound Care (DC) Add. Discharge Instructions: Call Dr. Gruber tomorrow to schedule a follow-up appointment for this week. Keep the bandage in place for the next 24 hours. Try to stay off your feet is much as possible tomorrow. Return for significant bleeding, or any other new, concerning, or worsening symptoms. All discharge instructions reviewed with patient and/or family. Voiced understanding. TALIA SWIFT APRN May 15, 2023 20:11
[2023-05-15] MEDS ORDERED: SILVER NITRATE APPLICATOR 1 PKT TP ONE (20:15)
== END 2023-05-15 21:03 | disposition home or self-care (01) ==
LOC: EDUNIT# 19:46 → ER 19:49
DX: S90.934A Unspecified superficial injury of right lesser toe(s), initial encounter (principal); G47.30 Sleep apnea, unspecified; Z99.89 Dependence on other enabling machines and devices; Z72.0 Tobacco use; Z79.01 Long term (current) use of anticoagulants; W26.8XXA Contact with other sharp object(s), not elsewhere classified, initial encounter; Y93.E8 Activity, other personal hygiene
CPT/HCPCS: 99282

== ENCOUNTER 2023-07-13 11:11 | Observation (INO) | payer BC ==
[~2023-07-13] VITALS: Ht 182 cm; Wt 151.0 kg
--- NOTE | 2023-07-13 11:42 | ED Lower Extremity ---
General Chief Complaint: Lower Extremity Stated Complaint: BILAT LEG SWELLING Nursing Triage Note: PT AMB TO RM 6 PT STATES LEG ARE MORE SWOLLEN THAN USUAL. STARTED A WEEK AGO Source: patient Exam Limitations: no limitations History of Present Illness Date Seen by Provider: Jul 13, 2023 Time Seen by Provider: 11:20 Initial Comments 58-year-old male presents to the ER with complaint of bilateral lower extremity swelling. States that his legs are always swollen, but that the left lower extremity has become worse over the past week. Patient was found to be hypoxic, 86 to 88% on room air. Patient denies chest pain or shortness of air. Patient denies any calf pain. Patient does take Lasix daily. Patient does smoke. Allergies and Home Medications Allergies Coded Allergies: No Known Drug Allergies (Unverified , 01/23/16) Patient Home Medication List Home Medication List Reviewed: Yes Aspirin (Aspirin EC) 81 Mg Tablet.dr, 81 MG PO DAILY, (Reported) Entered as Reported by: KATLYN FLEMING on 07/13/23 380 Last Action: Reviewed Atorvastatin Calcium (Atorvastatin Calcium) 40 Mg Tablet, 40 MG PO HS, (Reported) Entered as Reported by: KATLYN FLEMING on 09/07/211210 Last Action: Reviewed Diltiazem HCl (Diltiazem 24Hr ER) 240 Mg Cap.er.24h, 240 MG PO HS, (Reported) Entered as Reported by: KATLYN FLEMING on 09/07/211210 Last Action: Reviewed Furosemide (Furosemide) 40 Mg Tablet, 40 MG PO DAILY, (Reported) Entered as Reported by: KATLYN FLEMING on 09/07/211210 Last Action: Reviewed Insulin Regular, Human (Novolin R) 100 Unit/Ml Vial, 25 UNITS SC BIDAC, (Reported) Entered as Reported by: KATLYN FLEMING on 07/13/23 560 Last Action: Reviewed Lisinopril (Lisinopril) 20 Mg Tablet, 20 MG PO HS, (Reported) Entered as Reported by: KATLYN FLEMING on 09/07/211210 Last Action: Reviewed Magnesium Oxide (Magnesium Oxide) 400 Mg (241.3 Mg Magnesium) Tablet, 400 MG PO DAILY, (Reported) Entered as Reported by: KATLYN FLEMING on 07/13/23 472 Last Action: Reviewed Metformin HCl (Metformin HCl) 1,000 Mg Tablet, 1,000 MG PO BID, (Reported) Entered as Reported by: KATLYN FLEMING on 09/07/211210 Last Action: Reviewed Potassium Chloride (Klor-Con M20) 20 Meq Tab.er.prt, 20 MEQ PO BID, (Reported) Entered as Reported by: KATLYN FLEMING on 09/07/211210 Last Action: Reviewed Prasugrel HCl (Prasugrel HCl) 10 Mg Tablet, 10 MG PO DAILY, (Reported) Entered as Reported by: KATLYN FLEMING on 09/07/211210 Last Action: Reviewed Discontinued Medications Acyclovir (Acyclovir) 400 Mg Tablet, 400 MG PO BID Discontinued Reason: No Longer Taking Prescribed by: JELENA MAYFIELD on 09/16/211199 Last Action: Discontinued Albuterol Sulfate (Ventolin Hfa) 1 Puff Puff, 2 PUFF IH Q4H Discontinued Reason: No Longer Taking Prescribed by: JELENA MAYFIELD on 09/16/211199 Last Action: Discontinued Empagliflozin (Jardiance) 10 Mg Tablet, 10 MG PO DAILY, (Reported) Discontinued Reason: No Longer Taking Entered as Reported by: KATLYN FLEMING on 09/07/211210 Last Action: Discontinued Insulin Aspart (Novolog Flexpen) 300 Units/3 Ml Solution, 15 UNITS SQ AC, ( Reported) Discontinued Reason: No Longer Taking Entered as Reported by: KATLYN FLEMING on 09/07/211253 Last Action: Discontinued Insulin Detemir (Levemir Flextouch) 100 Unit/1 Ml Insuln.pen, 40 UNITS SC BID, (Reported) Discontinued Reason: No Longer Taking Entered as Reported by: KATLYN FLEMING on 09/07/211253 Last Action: Discontinued Miconazole Nitrate (Lotrimin AF) 90 Gm Powder, 1 GM TOP BID Discontinued Reason: No Longer Taking Prescribed by: JELENA MAYFIELD on 09/16/211199 Last Action: Discontinued Pantoprazole Sodium (Pantoprazole Sodium) 40 Mg Tablet.dr, 40 MG PO DAILY Discontinued Reason: No Longer Taking Prescribed by: JELENA MAYFIELD on 09/16/211199 Last Action: Discontinued Review of Systems Constitutional: see HPI Past Wxfdahk-Awnyvn-Niivwp Hx Patient Social History Tobacco Use?: Yes Tobacco type used: Cigarettes Smoking Status: Current Everyday Smoker Substance use?: No Alcohol Use?: No Pt feels they are or have been: No Immunizations Up To Date First/Initial COVID19 Vaccinat: NOVEMBER 2020 Second COVID19 Vaccination Silver: NOVEMBER 2020 Third COVID19 Vaccination Date: NOVEMBER 2020 Past Medical History Surgery/Hospitalization HX: htn,hld, iddm, gerd, cholecystectomy, 3 HEART STENTS Coronary Stent, Gallbladder Sleep Apnea, COPD Currently Using CPAP: Yes Currently Using BIPAP: No Coronary Artery Disease, High Cholesterol, Hypertension Reproductive Disorders: No Gall Bladder Disease Diabetes, Non-Insulin dep Physical Exam Vital Signs Vital Signs - First Documented 07/13/23 14:21 Resp 16 Capillary Refill : Less Than 3 Seconds Height, Weight, BMI Height: 6'1.00" Weight: 324lbs. 0.0oz. 146.400400sq; 43.00 BMI Method:Stated General Appearance: WD/WN, no apparent distress Neck: supple, normal inspection Cardiovascular: regular rate, rhythm Respiratory: lungs clear, normal breath sounds, no respiratory distress, no accessory muscle use Legs: bilateral leg non-tender, bilateral leg swelling; left leg other (Left calf much larger than right calf, pitting edema in left lower extremity) Neurologic/Psychiatric: alert, normal mood/affect Skin: normal color, warm/dry Progress/Results/Core Measures Results/Orders Lab Results Laboratory Tests Test 07/13/23 11:35 Range/Units White Blood Count 10.8 4.3-11.0 10^3/uL Red Blood Count 5.82 H 4.30-5.52 10^6/uL Hemoglobin 16.5 13.3-17.7 g/dL Hematocrit 52 40-54 % Mean Corpuscular Volume 90 80-99 fL Mean Corpuscular Hemoglobin 28 25-34 pg Mean Corpuscular Hemoglobin Concent 32 32-36 g/dL Red Cell Distribution Width 15.1 H 10.0-14.5 % Platelet Count 204 130-400 10^3/uL Mean Platelet Volume 11.2 9.0-12.2 fL Immature Granulocyte % (Auto) 0 % Neutrophils (%) (Auto) 74 42-75 % Lymphocytes (%) (Auto) 15 12-44 % Monocytes (%) (Auto) 8 0-12 % Eosinophils (%) (Auto) 3 0-10 % Basophils (%) (Auto) 1 0-10 % Neutrophils # (Auto) 8.0 H 1.8-7.8 10^3/uL Lymphocytes # (Auto) 1.6 1.0-4.0 10^3/uL Monocytes # (Auto) 0.8 0.0-1.0 10^3/uL Eosinophils # (Auto) 0.3 0.0-0.3 10^3/uL Basophils # (Auto) 0.1 0.0-0.1 10^3/uL Immature Granulocyte # (Auto) 0.0 0.0-0.1 10^3/uL Prothrombin Time 12.4 12.2-14.7 SEC INR Comment 0.9 0.8-1.4 Activated Partial Thromboplast Time 24 24-35 SEC D-Dimer 2.29 H 0.00-0.49 UG/ML Sodium Level 136 135-145 MMOL/L Potassium Level 4.8 3.6-5.0 MMOL/L Chloride Level 99 98-107 MMOL/L Carbon Dioxide Level 27 21-32 MMOL/L Anion Gap 10 5-14 MMOL/L Blood Urea Nitrogen 20 H 7-18 MG/DL Creatinine 1.09 0.60-1.30 MG/DL Estimat Glomerular Filtration Rate 78 BUN/Creatinine Ratio 18 Glucose Level 119 H 70-105 MG/DL Calcium Level 9.1 8.5-10.1 MG/DL Corrected Calcium 9.0 8.5-10.1 MG/DL Magnesium Level 1.9 1.6-2.4 MG/DL Total Bilirubin 0.9 0.1-1.0 MG/DL Aspartate Amino Transf (AST/SGOT) 13 5-34 U/L Alanine Aminotransferase (ALT/SGPT) 16 0-55 U/L Alkaline Phosphatase 76 40-136 U/L B-Type Natriuretic Peptide 30.6 <100.0 PG/ML Total Protein 7.3 6.4-8.2 GM/DL Albumin 4.1 3.2-4.5 GM/DL My Orders Orders - TALIA SWIFT [employer] DESIGNER Cbc And Automated Diff (07/13/23 11:40) Magnesium (07/13/23 11:40) Chest 1 View, Ap/Pa Only (07/13/23 11:40) Ekg Tracing (07/13/23 11:40) Comprehensive Metabolic Panel (07/13/23 11:40) Protime With Inr (07/13/23 11:40) Partial Thromboplastin Time (07/13/23 11:40) O2 (07/13/23 11:40) Monitor-Rhythm Ecg Trace Only (07/13/23 11:40) Ed Iv/Invasive Line Start (07/13/23 11:40) Bnp Ludwin (07/13/23 11:40) Fibrin Degradation Products (07/13/23 11:40) Us Venous Lower Ext Michael (07/13/23 11:54) Furosemide Injection (Furosemide Injec (07/13/23 13:00) Ct Angio Chest W (R/O Pe) (07/13/23 13:13) Iohexol Injection (Omnipaque 350 Mg/Ml 1 (07/13/23 13:30) Di Iv Start (Assessment) .IV start (07/13/23 13:18) Received Contrast (Hold Metformin- Contr (07/13/23 13:30) Ns (Ivpb) 100 Ml (Sodium Chloride 0.9% 1 (07/13/23 13:30) Ed Admission (Communication) (07/13/23 13:59) Medications Given in ED Current Medications Medications Dose Ordered Sig/Madan Route Start Time Stop Time Status Last Admin Dose Admin Furosemide 40 mg ONCE ONCE IVP 07/13/23 13:00 07/13/23 13:01 DC 07/13/23 13:02 40 MG Iohexol 100 ml ONCE ONCE IV 07/13/23 13:30 07/13/23 13:31 DC 07/13/23 13:26 88 ML Sodium Chloride 100 ml ONCE ONCE IV 07/13/23 13:30 07/13/23 13:31 DC 07/13/23 13:26 80 ML Vital Signs/I&O 07/13/23 07/13/23 07/13/23 11:25 11:25 14:21 Temp 36.5 Pulse 75 70 Resp 16 B/P (MAP) 146/75 (98) 148/86 Pulse Ox 92 93 93 O2 Delivery Nasal Cannula Nasal Cannula Nasal Cannula O2 Flow Rate 2.00 2.00 2.00 Blood Pressure Mean: 98 Progress Progress Note : Progress Note Patient seen and evaluated, resting comfortably in bed, no acute distress. Based on exam and symptoms, work-up initiated included CBC, CMP, coags, magnesium, BNP, D-dimer, chest x-ray, EKG, venous Doppler bilateral lower extremities. 1256 labs and chest x-ray reviewed. CBC shows slightly elevated RBC. CRP slightly elevated BUN 20, creatinine 1.09, GFR 78. Pulse 119. BNP normal. Coags normal. D-dimer elevated 2.29. Venous Doppler shows subcutaneous edema, negative for DVT. Chest x-ray shows mild cardiomegaly, venous congestion, suspicious for mild interstitial edema. 40 mg IV Lasix ordered. Considered CT angio chest PE rule out due to elevated D-dimer and hypoxia, patient not complaining of any chest pain or shortness of air so will defer at this time. Will discuss this with hospitalist and side boss. [address] Ward, hospitalist, regarding patient. She agrees to admit patient. She would like me to order the CT angio chest PE rule out due to elevated D-dimer and hypoxia. I spoke with Dr. Cooper, cardiology, he agrees with IV Lasix and CT angio chest PE rule out. Dr. Ward will place admission orders after results of CT angio. Diagnostic Imaging Diagonstic Imaging: Ultrasound Plain Films/CT/US/NM/MRI: leg Comments [facility], [place] NAME: WES WILKERSON [facility] REC#: [id number] PT STATUS: REG ER : 1965 PHYSICIAN: TALIA SWIFT APRN ADMIT DATE: 07/13/23/ER Draft Date of Exam:07/13/23 US VENOUS LOWER EXT MICHAEL PROCEDURE: US Venous Lower Ext Michael. TECHNIQUE: Multiple Real-time grayscale images were obtained over the lower extremities in various projections bilaterally. Additional duplex Doppler and color Doppler images were also obtained. INDICATION: Lower extremity swelling. FINDINGS: The bilateral lower extremity venous systems show normal color flow, compressibility, and normal waveforms. There is bilateral lower extremity subcutaneous edema below the level of the knees. IMPRESSION: 1. Subcutaneous edema. No visible fluid collection. 2. Negative for DVT. Dictated on workstation # [id number] Dict: 07/13/23 1254 Trans: 07/13/23 1301 [id number] Interpreted by: DESTINY BRYAN Electronically signed by: Diagonstic Imaging: Xray Plain Films/CT/US/NM/MRI: chest Comments [facility] [place], [place] NAME: WES WILKERSON [facility] REC#: [id number] PT STATUS: REG ER : 1965 PHYSICIAN: TALIA SWIFT APRN ADMIT DATE: 07/13/23/ER Draft Date of Exam:07/13/23 CHEST 1 VIEW, AP/PA ONLY INDICATION: Lower extremity swelling, worsening in severity. COMPARISON: 09/12/2021. FINDINGS: The heart is enlarged and there is some vascular congestion and likely mild interstitial edema. No pneumonia, effusion, or pneumothorax, however. IMPRESSION: Mild cardiomegaly, venous congestion, and suspicion for mild interstitial type edema but no apparent pleural fluid or pneumothorax. Dictated on workstation # [id number] Dict: 07/13/23 1240 Trans: 07/13/23 1242 [id number] Interpreted by: DESTINY BRYAN Electronically signed by: Departure Communication (Admissions) Time/Spoke to Admitting Phy: 13:10 Dr. Mayfield, hospitalist, see progress note. Time/Spoke to Consulting Phy: 13:18 Dr. Cooper, cardiology, see progress note. Impression Primary Impression: Pulmonary edema Additional Impressions: Hypoxia Bilateral lower extremity edema Disposition: ADMITTED INPATIENT Condition: Stable Admissions Decision to Admit Reason: Admit from ER (General) Decision to Admit/Date: Jul 13, 2023 Time/Decision to Admit Time: 13:10 Departure-Patient Inst. Referrals: JELENA MAYFIELD DO (PCP/Family) Primary Care Physician TALIA SWIFT APRN Jul 13, 2023 11:42
[2023-07-13 11:54] LABS: BASOPHILS # (AUTO) 0.1 10^3/uL (0.0-0.1); BASOPHILS % (AUTO) 1 % (0-10); EOSINOPHILS # (AUTO) 0.3 10^3/uL (0.0-0.3); EOSINOPHILS % (AUTO) 3 % (0-10); HEMATOCRIT 52 % (40-54); HEMOGLOBIN 16.5 g/dL (13.3-17.7); LYMPHOCYTES # (AUTO) 1.6 10^3/uL (1.0-4.0); LYMPHOCYTES % (AUTO) 15 % (12-44); MEAN CORPUSCULAR HEMOGLOBIN 28 pg (25-34); MEAN CORPUSCULAR HGB CONC 32 g/dL (32-36); MEAN CORPUSCULAR VOLUME 90 fL (80-99); MEAN PLATELET VOLUME 11.2 fL (9.0-12.2); MONOCYTES # (AUTO) 0.8 10^3/uL (0.0-1.0); MONOCYTES % (AUTO) 8 % (0-12); NEUTROPHILS % (AUTO) 74 % (42-75); PLATELET COUNT 204 10^3/uL (130-400); WHITE BLOOD COUNT 10.8 10^3/uL (4.3-11.0)
[2023-07-13 12:00] LABS: INR 0.9 (0.8-1.4); PROTHROMBIN TIME PATIENT 12.4 SEC (12.2-14.7)
[2023-07-13 12:03] LABS: FIBRIN DEGRADATION PRODUCTS 2.29 UG/ML (0.00-0.49)
[2023-07-13 12:05] LABS: ALBUMIN 4.1 GM/DL (3.2-4.5); POTASSIUM 4.8 MMOL/L (3.6-5.0)
[2023-07-13 12:06] LABS: CALCIUM 9.1 MG/DL (8.5-10.1)
[2023-07-13 12:07] LABS: TOTAL PROTEIN 7.3 GM/DL (6.4-8.2)
[2023-07-13 12:09] LABS: BILIRUBIN,TOTAL 0.9 MG/DL (0.1-1.0)
[2023-07-13 12:11] LABS: CREATININE SERUM 1.09 MG/DL (0.60-1.30)
[2023-07-13 12:14] LABS: MAGNESIUM 1.9 MG/DL (1.6-2.4)
--- NOTE | 2023-07-13 12:42 | Diagnostic Imaging Report ---
INDICATION: Lower extremity swelling, worsening in severity. COMPARISON: 09/12/2021. FINDINGS: The heart is enlarged and there is some vascular congestion and likely mild interstitial edema. No pneumonia, effusion, or pneumothorax, however. IMPRESSION: Mild cardiomegaly, venous congestion, and suspicion for mild interstitial type edema but no apparent pleural fluid or pneumothorax. Dictated by: Dictated on workstation # [id number]
[2023-07-13] MEDS ORDERED: FUROSEMIDE INJECTION 40 MG/4 ML VIAL IVP ONE ×2 (13:00)
--- NOTE | 2023-07-13 13:01 | Diagnostic Imaging Report ---
PROCEDURE: US Venous Lower Ext Cali. TECHNIQUE: Multiple Real-time grayscale images were obtained over the lower extremities in various projections bilaterally. Additional duplex Doppler and color Doppler images were also obtained. INDICATION: Lower extremity swelling. FINDINGS: The bilateral lower extremity venous systems show normal color flow, compressibility, and normal waveforms. There is bilateral lower extremity subcutaneous edema below the level of the knees. IMPRESSION: 1. Subcutaneous edema. No visible fluid collection. 2. Negative for DVT. Dictated by: Dictated on workstation # [id number]
[2023-07-13] MEDS ORDERED: NS 100 ML (IVPB) BAG IV ONE (13:30)
[2023-07-13] MEDS ORDERED: HOLD METFORMIN - RECEIVED CONTRAST 20 ML VIAL IV SCH (13:30)
[2023-07-13] MEDS ORDERED: IOHEXOL 350 MG/ML 100 ML (OMNIPAQUE 350) VIAL IV ONE (13:30)
--- NOTE | 2023-07-13 13:51 | Diagnostic Imaging Report ---
EXAMINATION: CT chest. TECHNIQUE: Precontrast images were obtained of the chest, . Multiple contiguous axial images were obtained through the chest, after administration of intravenous contrast. MiP reconstructions performed. Auto Exposure Controls were utilized during the CT exam to meet ALARA standards for radiation dose reduction. HISTORY: elevated d-dimer, hypoxia COMPARISON: None available. FINDINGS: The aorta and pulmonary artery are normal in caliber. No acute pulmonary emboli.. The heart is enlarged. There is no pericardial effusion. No lymphadenopathy within the chest. No pulmonary mass or consolidation. No suspicious pulmonary nodules. No airway lesions identified. No pleural mass, pleural effusion, or pneumothorax. Included views of the abdomen demonstrates no a 3 cm right adrenal adenoma. Postcholecystectomy changes. IMPRESSION: No acute pulmonary emboli. Cardiomegaly. No focal consolidation or shana pulmonary edema. 3 cm right adrenal adenoma. Dictated by: Dictated on workstation # [id number]
--- NOTE | 2023-07-13 14:14 | History & Physical ---
History of Present Illness HPI/Chief Complaint CC: New onset volume overload HPI: This is a 58yoWM clinic patient of mine since he recovered from a 2 weeks COVID episode 2 years ago who presented to the ER with edema increase in his legs and increased dyspnea. His weight has gone up and becoming more short of breath. BNP is normal. Elevated d-dimer revealed no DVT on USG and CT chest was negative. Cardiology will consult and ECHO will be performed and IV Lasix will be given. Source: patient, family Exam Limitations: no limitations Date Seen 07/13/23 Time Seen by a Provider: 14:00 Attending Physician Selina Anderson DO PCP Admitting Physician: Attending Physician: Referring Physician Date of Admission Home Medications & Allergies Home Medications Reviewed patient Home Medication Reconciliation performed by pharmacy medication reconciliations arcade game technician and/or nursing. Patients Allergies have been reviewed. Allergies Allergies Coded Allergies No Known Drug Allergies (Unverified01/23/16) Past Pbjjpad-Owkmbj-Vdoffg Hx Past Med/Social Hx: Reviewed Nursing Past Med/Soc Hx, Reviewed and Corrections made Patient Social History Marrital Status: cohabiting Employed/Student: employed ([employer]) Alcohol Use: Denies Use Smoking Status: Former Smoker Past Medical History Surgeries: Coronary Stent, Gallbladder Respiratory: COPD, Pneumonia, Sleep Apnea Currently Using CPAP: Yes Currently Using BIPAP: No Cardiac: Coronary Artery Disease, High Cholesterol, Hypertension Reproductive: No Gastrointestinal: Gall Bladder Disease Endocrine: Diabetes, Non-Insulin dep Review of Systems Constitutional: see HPI Respiratory: dyspnea on exertion Cardiovascular: edema Physical Exam Physical Exam Vital Signs Vital Signs - First Documented 07/13/23 07/13/23 14:21 15:40 Resp 16 FiO2 32 Capillary Refill : Less Than 3 Seconds Height, Weight, BMI Height: 6'1.00" Weight: 324lbs. 0.0oz. 146.709744xs; 43.00 BMI Method:Stated General Appearance: No Apparent Distress, WD/WN, Chronically ill, Obese Eyes: Bilateral Eye Normal Inspection, Bilateral Eye PERRL HEENT: PERRL/EOMI, Normal ENT Inspection, Pharynx Normal Neck: Full Range of Motion, Normal Inspection, Non Tender, Supple, Carotid Bruit Respiratory: Chest Non Tender, Lungs Clear, Normal Breath Sounds, No Accessory Muscle Use, No Respiratory Distress Cardiovascular: Regular Rate, Rhythm, No Edema, No Gallop, No JVD, No Murmur, Normal Peripheral Pulses Gastrointestinal: Normal Bowel Sounds, No Organomegaly, No Pulsatile Mass, Non Tender, Soft Back: Normal Inspection, No CVA Tenderness, No Vertebral Tenderness Extremity: Normal Capillary Refill, Normal Inspection, Normal Range of Motion, Non Tender, No Calf Tenderness, Pedal Edema Neurologic/Psychiatric: Alert, Oriented x3, No Motor/Sensory Deficits, Normal Mood/Affect Skin: Normal Color, Warm/Dry Lymphatic: No Adenopathy Results Results/Procedures Labs Laboratory Tests 07/13/23 11:35 Patient resulted labs reviewed. Assessment/Plan Admission Diagnosis Assessment: Volume overload Presumed CHF DM Elevated d-dimer with negative USG legs and CT chest HTN HLP CAD Plan: Home meds Lasix O2 Cards consult ECHO Admission Status: Observation SELINA ANDERSON DO Jul 13, 2023 14:13
[2023-07-13] MEDS ORDERED: hydrALAZINE 25 MG TABLET PO PRN (14:45)
[2023-07-13] MEDS ORDERED: BISACODYL 10 MG SUPPOSITORY PR PRN (14:45)
[2023-07-13] MEDS ORDERED: ANTACID SUSPENSION 30 ML UDC PO PRN (14:45)
[2023-07-13] MEDS ORDERED: MELATONIN 3 MG TABLET PO PRN (14:45)
[2023-07-13] MEDS ORDERED: CALCIUM CARBONATE 500 MG CHEW TABLET PO PRN (14:45)
[2023-07-13] MEDS ORDERED: LACTULOSE SYRUP 10GM/15ML 30ML UDC PO PRN (14:45)
[2023-07-13] MEDS ORDERED: oxyCODONE IMMEDIATE RELEASE 5 MG TABLET PO PRN (14:45)
[2023-07-13] MEDS ORDERED: HYDROmorphone INJECTION 2 MG/ML VIAL IV PRN (14:45)
[2023-07-13] MEDS ORDERED: diphenhydrAMINE INJ 50 MG/ML VIAL IVP PRN (14:45)
[2023-07-13] MEDS ORDERED: MILK OF MAGNESIA 400 MG/5 ML 30 ML UDC PO PRN (14:45)
[2023-07-13] MEDS ORDERED: ACETAMINOPHEN 325 MG TABLET PO PRN (14:45)
[2023-07-13] MEDS ORDERED: inSUlin (REGULAR) HUMAN 1 UNIT/0.01 ML (CHARGE PER UNIT) SC PRN (14:45)
[2023-07-13] MEDS ORDERED: diphenhydrAMINE 25 MG TABLET PO PRN (14:45)
[2023-07-13] MEDS ORDERED: ONDANSETRON 4 MG ORAL DISSOLVE TABLET PO PRN (14:45)
[2023-07-13] MEDS ORDERED: ONDANSETRON INJECTION 4 MG/2 ML (SDV) IV PRN (14:45)
[2023-07-13 15:07] VITALS: BP 132/69
[2023-07-13 15:40] VITALS: BP 132/69
[2023-07-13] MEDS ORDERED: ASPI-1238 PO (15:58)
[2023-07-13] MEDS ORDERED: INSU100V31 SC (15:58)
[2023-07-13] MEDS ORDERED: MGX400T PO (15:58)
--- NOTE | 2023-07-13 15:59 | Consultation-Cardiology ---
HPI-Cardiology Cardiology Consultation: Date of Consultation 07/13/23 Time Seen by a Provider: 16:00 Date of Admission 07-13-23 Attending Physician Selina Mayfield DO Admitting Physician Admitting Physician: Selina Mayfield DO Attending Physician: Selina Mayfield DO Consulting Physician Linus Cooper MD HPI: Chief Complaint: Lower extremity swelling Mr. Mabry is a 58 yr old male admitted to 427 from the ED with increasing bilat LE swelling over the course of the last few days he feels it has been somewhat worse. No c/o CP, palpitations,syncope, near syncope. No c/o SOB. He reports he has a h/o stents approx [address] Catalan. He denies any recent f/u with Dr. Catalan. He reports he has been compliant with his medications. He reports he has sleep apnea and has been compliant with his CPAP tx. Review of Systems-Cardiology Review of Systems Constitutional: No chills, No fever, No lightheadedness, No malaise Eyes: No vision change Ears/Nose/Throat: No epistaxis, No recent hearing loss Respiratory: As described under HPI Cardiovascular: As described under HPI Gastrointestinal: No constipation, No diarrhea, No nausea, No vomiting Genitourinary: No dysuria, No hematuria Musculoskeletal: no symptoms reported Skin: No rash on exposed areas, No ulcerations on exposed areas Psychiatric/Neurological: No anxiety, No depression, No seizure, No focal weak ness, No syncope Hematologic: No bleeding abnormalities [id number] Hx Patient Social History Smoking Status: Current Everyday Smoker Alcohol Use?: No Pt feels they are or have been: No Tobacco type used: Cigarettes Past Medical History PMH As described under Assessment. Family Medical History Family Medical History: No reported family h/o. Allergies and Home Medications Allergies Coded Allergies: No Known Drug Allergies (Unverified , 01/23/16) Patient Home Medication List Aspirin (Aspirin EC) 81 Mg Tablet., 81 MG PO DAILY, (Reported) Entered as Reported by: KATLYN FLEMING on 07/13/23 0488 Last Action: Reviewed Atorvastatin Calcium (Atorvastatin Calcium) 40 Mg Tablet, 40 MG PO HS, (Reported) Entered as Reported by: KATLYN FLEMING on 09/07/21 1211 Last Action: Reviewed Diltiazem HCl (Diltiazem 24Hr ER) 240 Mg Cap.er.24h, 240 MG PO HS, (Reported) Entered as Reported by: KATLYN FLEMING on 09/07/211210 Last Action: Reviewed Furosemide (Furosemide) 40 Mg Tablet, 40 MG PO DAILY, (Reported) Entered as Reported by: KATLYN FLEMING on 09/07/211210 Last Action: Reviewed Insulin Regular, Human (Novolin R) 100 Unit/Ml Vial, 25 UNITS SC BIDAC, (Reported) Entered as Reported by: KATLYN FLEMING on 07/13/231557 Last Action: Reviewed Lisinopril (Lisinopril) 20 Mg Tablet, 20 MG PO HS, (Reported) Entered as Reported by: KATLYN FLEMING on 09/07/211210 Last Action: Reviewed Magnesium Oxide (Magnesium Oxide) 400 Mg (241.3 Mg Magnesium) Tablet, 400 MG PO DAILY, (Reported) Entered as Reported by: KATLYN FLEMING on 07/13/231557 Last Action: Reviewed Metformin HCl (Metformin HCl) 1,000 Mg Tablet, 1,000 MG PO BID, (Reported) Entered as Reported by: KATLYN FLEMING on 09/07/211210 Last Action: Reviewed Potassium Chloride (Klor-Con M20) 20 Meq Tab.er.prt, 20 MEQ PO BID, (Reported) Entered as Reported by: KATLYN FLEMING on 09/07/211210 Last Action: Reviewed Prasugrel HCl (Prasugrel HCl) 10 Mg Tablet, 10 MG PO DAILY, (Reported) Entered as Reported by: KATLYN FLEMING on 09/07/211210 Last Action: Reviewed Discontinued Medications Acyclovir (Acyclovir) 400 Mg Tablet, 400 MG PO BID Discontinued Reason: No Longer Taking Prescribed by: SELINA MAYFIELD on 09/16/211199 Last Action: Discontinued Albuterol Sulfate (Ventolin Hfa) 1 Puff Puff, 2 PUFF IH Q4H Discontinued Reason: No Longer Taking Prescribed by: SELINA MAYFIELD on 09/16/211199 Last Action: Discontinued Empagliflozin (Jardiance) 10 Mg Tablet, 10 MG PO DAILY, (Reported) Discontinued Reason: No Longer Taking Entered as Reported by: KATLYN FLEMING on 09/07/211210 Last Action: Discontinued Insulin Aspart (Novolog Flexpen) 300 Units/3 Ml Solution, 15 UNITS SQ AC, (Reported) Discontinued Reason: No Longer Taking Entered as Reported by: KATLYN FLEMING on 09/07/211253 Last Action: Discontinued Insulin Detemir (Levemir Flextouch) 100 Unit/1 Ml Insuln.pen, 40 UNITS SC BID, (Reported) Discontinued Reason: No Longer Taking Entered as Reported by: KATLYN FLEMING on 09/07/21 125 Last Action: Discontinued Miconazole Nitrate (Lotrimin AF) 90 Gm Powder, 1 GM TOP BID Discontinued Reason: No Longer Taking Prescribed by: SELINA MAYFIELD on 09/16/211199 Last Action: Discontinued Pantoprazole Sodium (Pantoprazole Sodium) 40 Mg Tablet.dr, 40 MG PO DAILY Discontinued Reason: No Longer Taking Prescribed by: SELINA MAYFIELD on 09/16/211199 Last Action: Discontinued Physical Exam-Cardiology Physical Exam Vital Signs/I&O 07/13/23 07/13/23 07/13/23 07/13/23 11:25 11:25 14:21 14:48 Temp 36.5 Pulse 75 70 Resp 16 B/P (MAP) 146/75 (98) 148/86 Pulse Ox 92 93 93 O2 Delivery Nasal Cannula Nasal Cannula Nasal Cannula Nasal Cannula O2 Flow Rate 2.00 2.00 2.00 3.00 07/13/23 07/13/23 15:07 15:40 Temp 36.2 36.2 Pulse 71 71 Resp 18 B/P (MAP) 132/69 (90) Pulse Ox 92 92 O2 Delivery Nasal Cannula O2 Flow Rate 3.00 FiO2 32 Capillary Refill : Less Than 3 Seconds Constitutional: AAO x 3, well-developed, well-nourished HEENT: PERRL, hearing is well preserved, oral hygience is good Neck: No carotid bruit; carotid pulses are 2 + bilaterally Respiratory: No accessory muscle use, No respiratory distress; chest expansion is symmetric, chest is bilaterally symmetric, rhonchi (scattered), other (good air entry) Cardiovascular: regular rate-rhythm; No JVD; S1 and S2 Gastrointestinal: No tender; soft; No guarding; audible bowel sounds Extremities: other (mild to mod bilat LE swelling; L>R) Neurologic/Psychiatric: other (moves all extremtiies) Skin: other (Redness to LLE) Data Review Labs Laboratory Tests 07/13/23 11:35: White Blood Count 10.8, Red Blood Count 5.82H, Hemoglobin 16.5, Hematocrit 52, Mean Corpuscular Volume 90, Mean Corpuscular Hemoglobin 28, Mean Corpuscular Hemoglobin Concent 32, Red Cell Distribution Width 15.1H, Platelet Count 204, Mean Platelet Volume 11.2, Immature Granulocyte % (Auto) 0, Neutrophils (%) (Auto) 74, Lymphocytes (%) (Auto) 15, Monocytes (%) (Auto) 8, Eosinophils (%) (Auto) 3, Basophils (%) (Auto) 1, Neutrophils # (Auto) 8.0H, Lymphocytes # (Auto) 1.6, Monocytes # (Auto) 0.8, Eosinophils # (Auto) 0.3, Basophils # (Auto) 0.1, Immature Granulocyte # (Auto) 0.0, Prothrombin Time 12.4, INR Comment 0.9, Activated Partial Thromboplast Time 24, D-Dimer 2.29H, Sodium Level 136, Potassium Level 4.8, Chloride Level 99, Carbon Dioxide Level 27, Anion Gap 10, Blood Urea Nitrogen 20H, Creatinine 1.09, Estimat Glomerular Filtration Rate 78, BUN/Creatinine Ratio 18, Glucose Level 119H, Calcium Level 9.1, Corrected Calcium 9.0, Magnesium Level 1.9, Total Bilirubin 0.9, Aspartate Amino Transf (AST/SGOT) 13, Alanine Aminotransferase (ALT/SGPT) 16, Alkaline Phosphatase 76, B-Type Natriuretic Peptide 30.6, Total Protein 7.3, Albumin 4.1 Radiology NAME: WES MABRY [facility] REC#: [id number] PT STATUS: REG ER : 1965 PHYSICIAN: TALIA SWIFT APRN ADMIT DATE: 07/13/23/ER Signed Date of Exam:07/13/23 CHEST 1 VIEW, AP/PA ONLY INDICATION: Lower extremity swelling, worsening in severity. COMPARISON: 09/12/2021. FINDINGS: The heart is enlarged and there is some vascular congestion and likely mild interstitial edema. No pneumonia, effusion, or pneumothorax, however. IMPRESSION: Mild cardiomegaly, venous congestion, and suspicion for mild interstitial type edema but no apparent pleural fluid or pneumothorax. Dictated by: Dictated on workstation # [id number] Dict: 07/13/23 1240 Trans: 07/13/236 BEN [id number] Interpreted by: DESTINY BRYAN Electronically signed by: DESTINY BRYAN 07/13/236 NAME: WES MABRY [facility] REC#: [id number] PT STATUS: REG ER : 1965 PHYSICIAN: TALIA SWIFT APRN ADMIT DATE: 07/13/23/ER Signed Date of Exam:07/13/23 US VENOUS LOWER EXT MICHAEL PROCEDURE: US Venous Lower Ext Michael. TECHNIQUE: Multiple Real-time grayscale images were obtained over the lower extremities in various projections bilaterally. Additional duplex Doppler and color Doppler images were also obtained. INDICATION: Lower extremity swelling. FINDINGS: The bilateral lower extremity venous systems show normal color flow, compressibility, and normal waveforms. There is bilateral lower extremity subcutaneous edema below the level of the knees. IMPRESSION: 1. Subcutaneous edema. No visible fluid collection. 2. Negative for DVT. Dictated by: Dictated on workstation # [id number] Dict: 07/13/23 1254 Trans: 07/13/231325 BEN [id number] Interpreted by: DESTINY BRYAN Electronically signed by: DESTINY BRYAN 07/13/236 NAME: WES MABRY [facility] REC#: [id number] PT STATUS: REG ER : 1965 PHYSICIAN: TALIA SWIFT APRN ADMIT DATE: 07/13/23/ER Signed Date of Exam:07/13/23 CT ANGIO CHEST W (R/O PE) EXAMINATION: CT chest. TECHNIQUE: Precontrast images were obtained of the chest, . Multiple contiguous axial images were obtained through the chest, after administration of intravenous contrast. MiP reconstructions performed. Auto Exposure Controls were utilized during the CT exam to meet ALARA standards for radiation dose reduction. HISTORY: elevated d-dimer, hypoxia COMPARISON: None available. FINDINGS: The aorta and pulmonary artery are normal in caliber. No acute pulmonary emboli.. The heart is enlarged. There is no pericardial effusion. No lymphadenopathy within the chest. No pulmonary mass or consolidation. No suspicious pulmonary nodules. No airway lesions identified. No pleural mass, pleural effusion, or pneumothorax. Included views of the abdomen demonstrates no a 3 cm right adrenal adenoma. Postcholecystectomy changes. IMPRESSION: No acute pulmonary emboli. Cardiomegaly. No focal consolidation or shana pulmonary edema. 3 cm right adrenal adenoma. Dictated by: Dictated on workstation # [id number] Dict: 07/13/23 1335 Trans: 07/13/23 1350 [facility] [id number] Interpreted by: FEMI KING DO Electronically signed by: FEMI KING DO 07/13/23 1350 ECG Impression ECG Initial ECG Rhythm: S.Vance A/P-Cardiology Assessment/Admission Diagnosis CAD - h/o stents placed by Dr. Catalan approx 3 yrs ago at [facility] in [place], [place] - per stent card stents x 2 RCA, x 1 LAD Lower extermity swelling - no evidence fo DVT on venous duplex of 07-13-23 - normal BNP HTN HLD DM 2 Sleep apnea - CPAP tx Tobacco user - 1 PPD - cessation advised Discussion and Recomendations Lower extremity swelling - no evidence of DVT or CHF - LLE with redness and swelling greater than right possible d/t cellulitis CAD - h/o stent placement approx 3 yrs ago - continue ASA and Prasugrel Echocardiogram today Continue home anti-hypertensive regimen Continue statin Monitor lab Replace electrolytes as indicated Request records from [facility] Further recs will be based on his hospital course We would like to thank medical services for this consult VINAY GALICIA Jul 13, 2023 15:59
[2023-07-13] MEDS ORDERED: RT-Ipratropium/Albuterol NEB 3 ML VIAL INH PRN (16:00)
[2023-07-13] MEDS: ENOXAPARIN 40 MG/0.4 ML SYRINGE SC SCH (17:02)
[2023-07-13] MEDS: FUROSEMIDE INJECTION 40 MG/4 ML VIAL IV SCH (17:02)
[2023-07-13] MEDS: inSUlin (REGULAR) HUMAN 1 UNIT/0.01 ML (CHARGE PER UNIT) SC SCH (18:13)
[2023-07-13] MEDS: DOCUSATE SODIUM 100 MG CAPSULE PO SCH (19:42)
[2023-07-13] MEDS: SENNOSIDES 8.6 MG TABLET PO SCH (19:43)
[2023-07-13 20:19] VITALS: BP 134/68
[2023-07-13] MEDS ORDERED: dilTIAZem ER 240 MG CAPSULE PO SCH (21:00)
[2023-07-13] MEDS: RT-Ipratropium/Albuterol NEB 3 ML VIAL INH SCH (21:44)
--- NOTE | 2023-07-13 22:27 | Consultation-Cardiology ---
HPI-Cardiology Cardiology Consultation: Date of Consultation 07/13/23 Time Seen by a Provider: 18:15 Date of Admission Attending Physician Selina Anderson DO Admitting Physician Admitting Physician: Selina Anderson DO Attending Physician: eSlina Anderson DO Consulting Physician JONI SAMSON MD, MA, FACP, FACC, FSCAI, CCDS HPI: Chief Complaint: Lower extremity swelling Mr. Mabry is a 58 yr old male admitted to [facility] from the ED with increasing bilat LE swelling over the course of the last few days he feels it has been somewhat worse. No c/o CP, palpitations,syncope, near syncope. No c/o SOB. He reports he has a h/o stents approx [address] Catalan. He denies any recent f/u with Dr. Catalan. He reports he has been compliant with his medications. He reports he has sleep apnea and has been compliant with his CPAP tx. Review of Systems-Cardiology Review of Systems Constitutional: No chills, No fever, No lightheadedness, No malaise Eyes: No vision change Ears/Nose/Throat: No epistaxis, No recent hearing loss Respiratory: As described under HPI Cardiovascular: As described under HPI Gastrointestinal: No constipation, No diarrhea, No nausea, No vomiting Genitourinary: No dysuria, No hematuria Musculoskeletal: no symptoms reported Skin: No rash on exposed areas, No ulcerations on exposed areas Psychiatric/Neurological: No anxiety, No depression, No seizure, No focal weakness, No syncope Hematologic: No bleeding abnormalities [id number]-[id number] Hx Patient Social History Marrital Status: cohabiting Employed/Student: employed ([employer]) Smoking Status: Former Smoker Alcohol Use?: No Pt feels they are or have been: No Tobacco type used: Cigarettes Past Medical History PMH As described under Assessment. Family Medical History Family Medical History: No reported family h/o. Allergies and Home Medications Allergies Coded Allergies: No Known Drug Allergies (Unverified , 01/23/16) Patient Home Medication List Home Medication List Reviewed: Yes Aspirin (Aspirin EC) 81 Mg Tablet., 81 MG PO DAILY, (Reported) Entered as Reported by: KATLYN FLEMING on 07/13/23 1558 Last Action: Held Atorvastatin Calcium (Atorvastatin Calcium) 40 Mg Tablet, 40 MG PO HS, (Reported) Entered as Reported by: KATLYN FLEMING on 09/07/211210 Last Action: Continued Diltiazem HCl (Diltiazem 24Hr ER) 240 Mg Cap.er.24h, 240 MG PO HS, (Reported) Entered as Reported by: KATLYN FLEMING on 09/07/211210 Last Action: Continued Furosemide (Furosemide) 40 Mg Tablet, 40 MG PO DAILY, (Reported) Entered as Reported by: KATLYN FLEMING on 09/07/211210 Last Action: Held Insulin Regular, Human (Novolin R) 100 Unit/Ml Vial, 25 UNITS SC BIDAC, (Reported) Entered as Reported by: KATLYN FLEMING on 07/13/231557 Last Action: Held Lisinopril (Lisinopril) 20 Mg Tablet, 20 MG PO HS, (Reported) Entered as Reported by: KATLYN FLEMING on 09/07/211210 Last Action: Continued Magnesium Oxide (Magnesium Oxide) 400 Mg (241.3 Mg Magnesium) Tablet, 400 MG PO DAILY, (Reported) Entered as Reported by: KATLYN FLEMING on 07/13/231557 Last Action: Continued Metformin HCl (Metformin HCl) 1,000 Mg Tablet, 1,000 MG PO BID, (Reported) Entered as Reported by: KATLYN FLEMING on 09/07/211210 Last Action: Held Potassium Chloride (Klor-Con M20) 20 Meq Tab.er.prt, 20 MEQ PO BID, (Reported) Entered as Reported by: KATLYN FLEMING on 09/07/211210 Last Action: Continued Prasugrel HCl (Prasugrel HCl) 10 Mg Tablet, 10 MG PO DAILY, (Reported) Entered as Reported by: KATLYN FLEMING on 09/07/211210 Last Action: Held Discontinued Medications Acyclovir (Acyclovir) 400 Mg Tablet, 400 MG PO BID Discontinued Reason: No Longer Taking Prescribed by: SELINA ANDERSON on 09/16/211199 Last Action: Discontinued Albuterol Sulfate (Ventolin Hfa) 1 Puff Puff, 2 PUFF IH Q4H Discontinued Reason: No Longer Taking Prescribed by: SELINA ANDERSON on 09/16/21 1200 Last Action: Discontinued Empagliflozin (Jardiance) 10 Mg Tablet, 10 MG PO DAILY, (Reported) Discontinued Reason: No Longer Taking Entered as Reported by: KATLYN FLEMING on 09/07/21 1211 Last Action: Discontinued Insulin Aspart (Novolog Flexpen) 300 Units/3 Ml Solution, 15 UNITS SQ AC, (Reported) Discontinued Reason: No Longer Taking Entered as Reported by: KATLYN FLEMING on 09/07/21 1254 Last Action: Discontinued Insulin Detemir (Levemir Flextouch) 100 Unit/1 Ml Insuln.pen, 40 UNITS SC BID, (Reported) Discontinued Reason: No Longer Taking Entered as Reported by: KATLYN FLEMING on 09/07/21 1254 Last Action: Discontinued Miconazole Nitrate (Lotrimin AF) 90 Gm Powder, 1 GM TOP BID Discontinued Reason: No Longer Taking Prescribed by: SELINA ANDERSON on 09/16/211199 Last Action: Discontinued Pantoprazole Sodium (Pantoprazole Sodium) 40 Mg Tablet.dr, 40 MG PO DAILY Discontinued Reason: No Longer Taking Prescribed by: SELINA ANDERSON on 09/16/211199 Last Action: Discontinued Physical Exam-Cardiology Physical Exam Vital Signs/I&O 07/13/23 07/13/23 07/13/23 07/13/23 11:25 11:25 14:21 14:48 Temp 36.5 Pulse 75 70 Resp 16 B/P (MAP) 146/75 (98) 148/86 Pulse Ox 92 93 93 O2 Delivery Nasal Cannula Nasal Cannula Nasal Cannula Nasal Cannula O2 Flow Rate 2.00 2.00 2.00 3.00 07/13/23 07/13/23 07/13/23 07/13/23 15:07 15:40 16:08 19:00 Temp 36.2 36.2 Pulse 71 71 58 70 Resp 18 B/P (MAP) 132/69 (90) Pulse Ox 92 92 O2 Delivery Nasal Cannula O2 Flow Rate 3.00 FiO2 32 07/13/23 07/13/23 20:19 21:44 Temp 36.3 Pulse 70 Resp 18 B/P (MAP) 134/68 (90) Pulse Ox 94 94 O2 Delivery Nasal Cannula Nasal Cannula O2 Flow Rate 3.00 3.00 Capillary Refill : Less Than 3 Seconds Constitutional: AAO x 3, well-developed, well-nourished HEENT: PERRL, hearing is well preserved, oral hygience is good Neck: No carotid bruit; carotid pulses are 2 + bilaterally Respiratory: No accessory muscle use, No respiratory distress; chest expansion is symmetric, chest is bilaterally symmetric, rhonchi (scattered), other (good air entry) Cardiovascular: regular rate-rhythm; No JVD; S1 and S2 Gastrointestinal: No tender; soft; No guarding; audible bowel sounds Extremities: other (mild to mod bilat LE swelling; L>R) Neurologic/Psychiatric: other (moves all extremtiies) Skin: other (Redness to LLE) Data Review Labs Laboratory Tests 07/13/23 11:35: White Blood Count 10.8, Red Blood Count 5.82H, Hemoglobin 16.5, Hematocrit 52, Mean Corpuscular Volume 90, Mean Corpuscular Hemoglobin 28, Mean Corpuscular Hemoglobin Concent 32, Red Cell Distribution Width 15.1H, Platelet Count 204, Mean Platelet Volume 11.2, Immature Granulocyte % (Auto) 0, Neutrophils (%) (Auto) 74, Lymphocytes (%) (Auto) 15, Monocytes (%) (Auto) 8, Eosinophils (%) (Auto) 3, Basophils (%) (Auto) 1, Neutrophils # (Auto) 8.0H, Lymphocytes # (Auto) 1.6, Monocytes # (Auto) 0.8, Eosinophils # (Auto) 0.3, Basophils # (Auto) 0.1, Immature Granulocyte # (Auto) 0.0, Prothrombin Time 12.4, INR Comment 0.9, Activated Partial Thromboplast Time 24, D-Dimer 2.29H, Sodium Level 136, Potassium Level 4.8, Chloride Level 99, Carbon Dioxide Level 27, Anion Gap 10, Blood Urea Nitrogen 20H, Creatinine 1.09, Estimat Glomerular Filtration Rate 78, BUN/Creatinine Ratio 18, Glucose Level 119H, Calcium Level 9.1, Corrected Calcium 9.0, Magnesium Level 1.9, Total Bilirubin 0.9, Aspartate Amino Transf (AST/SGOT) 13, Alanine Aminotransferase (ALT/SGPT) 16, Alkaline Phosphatase 76, B-Type Natriuretic Peptide 30.6, Total Protein 7.3, Albumin 4.1 A/P-Cardiology Assessment/Admission Diagnosis Lower extermity swelling, primarily on the L leg - cellulitis suspected - no evidence fo DVT on venous duplex of 07-13-23 - normal BNP - Dr Anderson managing cellulitis HTN HLD DM 2 Sleep apnea - CPAP tx Tobacco user - 1 PPD - cessation advised Discussion and Recomendations Lower extremity swelling - no evidence of DVT or CHF - LLE with redness and swelling greater than right possible d/t cellulitis CAD - h/o stent placement approx 3 yrs ago - continue ASA and Prasugrel Echocardiogram today Continue home anti-hypertensive regimen Continue statin Monitor lab Replace electrolytes as indicated Request records from [facility] Further recs will be based on his hospital course We would like to thank medical services for this consult JONI SAMSON MD FACP FAC CCDS Jul 13, 2023 22:27
[2023-07-13 23:09] VITALS: BP 111/64
[2023-07-14 03:27] VITALS: BP 106/64
[2023-07-14] MEDS: ENOXAPARIN 40 MG/0.4 ML SYRINGE SC SCH (05:47)
[2023-07-14] MEDS: FUROSEMIDE INJECTION 40 MG/4 ML VIAL IV SCH (05:47)
[2023-07-14 05:52] LABS: BASOPHILS % (AUTO) 0 % (0-10); EOSINOPHILS # (AUTO) 0.3 10^3/uL (0.0-0.3); EOSINOPHILS % (AUTO) 3 % (0-10); HEMATOCRIT 54 % (40-54); HEMOGLOBIN 16.9 g/dL (13.3-17.7); LYMPHOCYTES # (AUTO) 1.2 10^3/uL (1.0-4.0); LYMPHOCYTES % (AUTO) 11 % (12-44); MEAN CORPUSCULAR HEMOGLOBIN 28 pg (25-34); MEAN CORPUSCULAR HGB CONC 32 g/dL (32-36); MEAN CORPUSCULAR VOLUME 89 fL (80-99); MONOCYTES # (AUTO) 0.8 10^3/uL (0.0-1.0); MONOCYTES % (AUTO) 7 % (0-12); NEUTROPHILS # (AUTO) 8.8 10^3/uL (1.8-7.8); NEUTROPHILS % (AUTO) 79 % (42-75); PLATELET COUNT 181 10^3/uL (130-400); WHITE BLOOD COUNT 11.1 10^3/uL (4.3-11.0)
[2023-07-14 06:01] LABS: ALBUMIN 4.1 GM/DL (3.2-4.5); POTASSIUM 4.7 MMOL/L (3.6-5.0)
[2023-07-14 06:03] LABS: TOTAL PROTEIN 7.3 GM/DL (6.4-8.2)
[2023-07-14 06:05] LABS: BILIRUBIN,TOTAL 1.4 MG/DL (0.1-1.0)
[2023-07-14 06:07] LABS: CREATININE SERUM 1.21 MG/DL (0.60-1.30)
[2023-07-14] MEDS: inSUlin (REGULAR) HUMAN 1 UNIT/0.01 ML (CHARGE PER UNIT) SC SCH ×2 (06:51→12:43)
[2023-07-14] MEDS: RT-Ipratropium/Albuterol NEB 3 ML VIAL INH SCH (07:22)
[2023-07-14 07:35] VITALS: BP 105/73
[2023-07-14] MEDS ORDERED: POTASSIUM CHLORIDE 20 MEQ TABLET PO SCH (08:00)
[2023-07-14] MEDS: SENNOSIDES 8.6 MG TABLET PO SCH (08:44)
[2023-07-14] MEDS: DOCUSATE SODIUM 100 MG CAPSULE PO SCH (08:44)
[2023-07-14] MEDS ORDERED: PANTOPRAZOLE 40 MG TABLET PO SCH (09:00)
[2023-07-14] MEDS ORDERED: ASPIRIN 81 MG CHEWABLE TABLET PO SCH (09:00)
[2023-07-14] MEDS ORDERED: MAGNESIUM OXIDE 400 MG TABLET PO SCH (09:00)
[2023-07-14] MEDS ORDERED: PRASUGREL 10 MG TABLET PO SCH (09:00)
--- NOTE | 2023-07-14 09:06 | Progress Note ---
MILDRED SILVA 07/14/23 0906: Subjective Date Seen by a Provider: Jul 14, 2023 Subjective/Events-last exam Michael Mabry is a 58M with a PMH of CAD, DM2, HTN, HLP, sleep apnea who is a cu rrent tobacco smoker. He presented to the ER on 07/13 with complaints of bilateral lower extremity swelling. States that his legs are always swollen, but that the left lower extremity has become worse over the past week. Patient was found to be hypoxic, 86 to 88% on room air. Patient denied chest pain or shortness of air. Patient denied any calf pain. Patient does take Lasix daily. Based on exam and symptoms, work-up initiated included CBC, CMP, coags, magnesium, BNP, D-dimer, chest x-ray, EKG, venous Doppler bilateral lower extremities. CBC showed slightly elevated RBC. CRP slightly elevated BUN 20, creatinine 1.09, GFR 78. Pulse 119. BNP normal. Coags normal. D-dimer elevated 2.29. Venous Doppler shows subcutaneous edema, negative for DVT. Chest x-ray shows mild cardiomegaly, venous congestion, suspicious for mild interstitial edema. 40 mg IV Lasix ordered. Around 1300H the pt was admitted. CT angiogram of the chest was ordered to rule out a PE due to the elevated D- dimer and being hypoxic. CT angiogram showed No acute pulmonary emboli, Cardiomegaly, No focal consolidation or shana pulmonary edema, and a 3 cm right adrenal adenoma. Cardiology was consulted and Dr. Cooper saw the patient. Pt has a h/o stent placement approx [address] Cooper instructed the pt to continue ASA, Clopidogrel, Prasugrel, statin, and his home HTN medications. An echocardiogram was performed. Today, 07/14, the pt states that he is in no pain and has no SOB today. He is very eager to go home but is willing to stay admitted if it is appropriate. When asked about his left leg he states that it is in the same condition as it was yesterday. Denies any leg pain, feelings of warmth, increased pressure, or increased spreading of erythema. The plan is to discharge the patient after we perform a respiratory status exam when the pt is ambulatory to determine if home oxygen use is necessary. Review of Systems General: No Fatigue, No Malaise HEENT: No Visual Changes, No Eye Pain, No Ear Pain Pulmonary: No Cough Cardiovascular: No: Chest Pain, Palpitations, Edema Gastrointestinal: No: Nausea, Vomiting, Abdominal Pain Musculoskeletal: leg pain (left lower); No: neck pain, shoulder pain Neurological: No: Weakness, Numbness Objective Exam Last Set of Vital Signs Vital Signs Date Time Temp Pulse Resp B/P (MAP) Pulse Ox O2 Delivery O2 Flow Rate FiO2 07/14/23 07:35 36.6 70 16 105/73 (84) 90 Nasal Cannula 2.00 07/13/23 15:40 32 Capillary Refill : Less Than 3 Seconds I&O Intake and Output 07/14/23 00:00 Intake Total 1440 ml Output Total 1000 ml Balance 440 ml Intake Oral 1440 ml Output Urine Total 1000 ml Daily Weight Change No General: Alert, Oriented X3, Cooperative, No Acute Distress HEENT: PERRLA Neck: No JVD Lungs: Other (decreased breath sound b/l) Heart: Regular Rate, No Murmurs Abdomen: Normal Bowel Sounds, No Tenderness Extremities: No Clubbing, No Cyanosis, Other (LE erythematous 3" distal to ankle and 7" proximal to knee. Circles leg within this area.) Neuro: Normal Speech, Strength at 5/5 X4 Ext, Cranial Nerves 3-12 NL, Reflexes 2+ (Patellar b/l. Brachioradialis b/l.) Psych/Mental Status: Mental Status NL, Mood NL Results Lab Laboratory Tests 07/13/23 11:35: White Blood Count 10.8, Red Blood Count 5.82H, Hemoglobin 16.5, Hematocrit 52, Mean Corpuscular Volume 90, Mean Corpuscular Hemoglobin 28, Mean Corpuscular Hemoglobin Concent 32, Red Cell Distribution Width 15.1H, Platelet Count 204, Mean Platelet Volume 11.2, Immature Granulocyte % (Auto) 0, Neutrophils (%) (Auto) 74, Lymphocytes (%) (Auto) 15, Monocytes (%) (Auto) 8, Eosinophils (%) (Auto) 3, Basophils (%) (Auto) 1, Neutrophils # (Auto) 8.0H, Lymphocytes # (Auto) 1.6, Monocytes # (Auto) 0.8, Eosinophils # (Auto) 0.3, Basophils # (Auto) 0.1, Immature Granulocyte # (Auto) 0.0, Prothrombin Time 12.4, INR Comment 0.9, Activated Partial Thromboplast Time 24, D-Dimer 2.29H, Sodium Level 136, Potassium Level 4.8, Chloride Level 99, Carbon Dioxide Level 27, Anion Gap 10, Blood Urea Nitrogen 20H, Creatinine 1.09, Estimat Glomerular Filtration Rate 78, BUN/Creatinine Ratio 18, Glucose Level 119H, Calcium Level 9.1, Corrected Calcium 9.0, Magnesium Level 1.9, Total Bilirubin 0.9, Aspartate Amino Transf (AST/SGOT) 13, Alanine Aminotransferase (ALT/SGPT) 16, Alkaline Phosphatase 76, B-Type Natriuretic Peptide 30.6, Total Protein 7.3, Albumin 4.1 07/14/23 05:27: Glucometer 190H 07/14/23 05:38: White Blood Count 11.1H, Red Blood Count 6.02H, Hemoglobin 16.9, Hematocrit 54, Mean Corpuscular Volume 89, Mean Corpuscular Hemoglobin 28, Mean Corpuscular Hemoglobin Concent 32, Red Cell Distribution Width 15.1H, Platelet Count 181, Mean Platelet Volume 11.0, Immature Granulocyte % (Auto) 0, Neutrophils (%) (Auto) 79H, Lymphocytes (%) (Auto) 11L, Monocytes (%) (Auto) 7, Eosinophils (%) (Auto) 3, Basophils (%) (Auto) 0, Neutrophils # (Auto) 8.8H, Lymphocytes # (Auto) 1.2, Monocytes # (Auto) 0.8, Eosinophils # (Auto) 0.3, Basophils # (Auto) 0.0, Immature Granulocyte # (Auto) 0.0, Sodium Level 133L, Potassium Level 4.7, Chloride Level 96L, Carbon Dioxide Level 26, Anion Gap 11, Blood Urea Nitrogen 23H, Creatinine 1.21, Estimat Glomerular Filtration Rate 69, BUN/Creatinine Ratio 19, Glucose Level 206H, Calcium Level 9.0, Corrected Calcium 8.9, Total Bilirubin 1.4H, Aspartate Amino Transf (AST/SGOT) 17, Alanine Aminotransferase (ALT/SGPT) 17, Alkaline Phosphatase 79, Total Protein 7.3, Albumin 4.1 Assessment/Plan Assessment/Plan Assess & Plan/Chief Complaint Assessment: Cardiomegaly with Volume Overload Venous Stasis Dermatitis DM2 HTN Hyperlipidemia CAD Plan: Cardiomegaly with volume overload -Pt will take double his normal amount of furosemide for a few days to help decrease the swelling -I am instructing the pt to wear compression stockings to decrease the LE swelling Venous stasis dermatitis -continue to watch to make sure the leg doesn't worsen DM2 -continue medications HTN -continue current meds Hyperlipidemia -continue current meds CAD -continue current meds SELINA MAYFIELD DO 07/15/23 0500: Subjective Time Seen by a Provider: 11:00 Supervisory-Addendum Brief Verification & Attestation Participated in pt care: history, MDM, physical Personally performed: exam, history, MDM, supervision of care Care discussed with: Medical Student Procedures: n/a Results interpretation: Verified all documentation Verification and Attestation of Medical Student E/M Service A medical student performed and documented this service in my presence. I reviewed and verified all information documented by the medical student and made modifications to such information, when appropriate. I personally performed the physical exam and medical decision making. Selina Mayfield, Jul 15, 2023,05:00 MILDRED SILVA Jul 14, 2023 09:06 SELINA MAYFIELD DO Jul 15, 2023 05:00
[2023-07-14 11:16] VITALS: BP 107/70
[2023-07-14] MEDS ORDERED: FURO-124 PO (13:17)
--- NOTE | 2023-07-14 13:18 | Discharge Summary ---
Diagnosis/Chief Complaint Date of Admission Jul 13, 2023 at 14:33 Date of Discharge Discharge Date: Jul 14, 2023 Discharge Diagnosis Acute volume overload Edema Hypoxia COPD APOORVA Diabetes insulin-dependent Discharge Summary Discharge Physical Examination Allergies: Coded Allergies: No Known Drug Allergies (Unverified , 01/23/16) Vitals & I&Os Vital Signs Date Time Temp Pulse Resp B/P (MAP) Pulse Ox O2 Delivery O2 Flow Rate FiO2 07/14/23 14:00 36.5 61 16 107/70 92 Nasal Cannula 2.00 07/13/23 15:40 32 General Appearance: Alert, Oriented X3, Cooperative Respiratory: Clear to Auscultation Hospital Course Was the Problem List Reviewed?: Yes Michael Mabry is a 58M with a PMH of CAD, DM2, HTN, HLP, sleep apnea who is a current tobacco smoker. He presented to the ER on 07/13 with complaints of bilateral lower extremity swelling. States that his legs are always swollen, but that the left lower extremity has become worse over the past week. Patient was found to be hypoxic, 86 to 88% on room air. Patient denied chest pain or shortness of air. Patient denied any calf pain. Patient does take Lasix daily. Based on exam and symptoms, work-up initiated included CBC, CMP, coags, magnesium, BNP, D-dimer, chest x-ray, EKG, venous Doppler bilateral lower extremities. CBC showed slightly elevated RBC. CRP slightly elevated BUN 20, creatinine 1.09, GFR 78. Pulse 119. BNP normal. Coags normal. D-dimer elevated 2.29. Venous Doppler shows subcutaneous edema, negative for DVT. Chest x-ray shows mild cardiomegaly, venous congestion, suspicious for mild interstitial edema. 40 mg IV Lasix ordered. Around 1300H the pt was admitted. CT angiogram of the chest was ordered to rule out a PE due to the elevated D- dimer and being hypoxic. CT angiogram showed No acute pulmonary emboli, Cardiomegaly, No focal consolidation or shana pulmonary edema, and a 3 cm right adrenal adenoma. Cardiology was consulted and Dr. Cooper saw the patient. Pt has a h/o stent placement approx [address] Cooper instructed the pt to continue ASA, Clopidogrel, Prasugrel, statin, and his home HTN medications. An echocardiogram was performed. Today, 07/14, the pt states that he is in no pain and has no SOB today. He is very eager to go home but is willing to stay admitted if it is appropriate. When asked about his left leg he states that it is in the same condition as it was yesterday. Denies any leg pain, feelings of warmth, increased pressure, or increased spreading of erythema. The plan is to discharge the patient after we perform a respiratory status exam when the pt is ambulatory to determine if home oxygen use is necessary. Labs (last 24 hrs) Laboratory Tests 07/13/23 11:35: White Blood Count 10.8, Red Blood Count 5.82H, Hemoglobin 16.5, Hematocrit 52, Mean Corpuscular Volume 90, Mean Corpuscular Hemoglobin 28, Mean Corpuscular Hemoglobin Concent 32, Red Cell Distribution Width 15.1H, Platelet Count 204, Mean Platelet Volume 11.2, Immature Granulocyte % (Auto) 0, Neutrophils (%) (Aut o) 74, Lymphocytes (%) (Auto) 15, Monocytes (%) (Auto) 8, Eosinophils (%) (Auto) 3, Basophils (%) (Auto) 1, Neutrophils # (Auto) 8.0H, Lymphocytes # (Auto) 1.6, Monocytes # (Auto) 0.8, Eosinophils # (Auto) 0.3, Basophils # (Auto) 0.1, Immature Granulocyte # (Auto) 0.0, Prothrombin Time 12.4, INR Comment 0.9, Activated Partial Thromboplast Time 24, D-Dimer 2.29H, Sodium Level 136, Potassium Level 4.8, Chloride Level 99, Carbon Dioxide Level 27, Anion Gap 10, Blood Urea Nitrogen 20H, Creatinine 1.09, Estimat Glomerular Filtration Rate 78, BUN/Creatinine Ratio 18, Glucose Level 119H, Calcium Level 9.1, Corrected Calcium 9.0, Magnesium Level 1.9, Total Bilirubin 0.9, Aspartate Amino Transf (AST/SGOT) 13, Alanine Aminotransferase (ALT/SGPT) 16, Alkaline Phosphatase 76, B-Type Natriuretic Peptide 30.6, Total Protein 7.3, Albumin 4.1 07/14/23 05:27: Glucometer 190H 07/14/23 05:38: White Blood Count 11.1H, Red Blood Count 6.02H, Hemoglobin 16.9, Hematocrit 54, Mean Corpuscular Volume 89, Mean Corpuscular Hemoglobin 28, Mean Corpuscular Hemoglobin Concent 32, Red Cell Distribution Width 15.1H, Platelet Count 181, Mean Platelet Volume 11.0, Immature Granulocyte % (Auto) 0, Neutrophils (%) (Auto) 79H, Lymphocytes (%) (Auto) 11L, Monocytes (%) (Auto) 7, Eosinophils (%) (Auto) 3, Basophils (%) (Auto) 0, Neutrophils # (Auto) 8.8H, Lymphocytes # (Auto) 1.2, Monocytes # (Auto) 0.8, Eosinophils # (Auto) 0.3, Basophils # (Auto) 0.0, Immature Granulocyte # (Auto) 0.0, Sodium Level 133L, Potassium Level 4.7, Chloride Level 96L, Carbon Dioxide Level 26, Anion Gap 11, Blood Urea Nitrogen 23H, Creatinine 1.21, Estimat Glomerular Filtration Rate 69, BUN/Creatinine Ratio 19, Glucose Level 206H, Calcium Level 9.0, Corrected Calcium 8.9, Total Bilirubin 1.4H, Aspartate Amino Transf (AST/SGOT) 17, Alanine Aminotransferase (ALT/SGPT) 17, Alkaline Phosphatase 79, Total Protein 7.3, Albumin 4.1 Pending Labs Laboratory Tests 07/13/23 11:35: White Blood Count 10.8, Red Blood Count 5.82, Hemoglobin 16.5, Hematocrit 52, Mean Corpuscular Volume 90, Mean Corpuscular Hemoglobin 28, Mean Corpuscular Hemoglobin Concent 32, Red Cell Distribution Width 15.1, Platelet Count 204, Mean Platelet Volume 11.2, Immature Granulocyte % (Auto) 0, Neutrophils (%) (Auto) 74, Lymphocytes (%) (Auto) 15, Monocytes (%) (Auto) 8, Eosinophils (%) (A uto) 3, Basophils (%) (Auto) 1, Neutrophils # (Auto) 8.0, Lymphocytes # (Auto) 1.6, Monocytes # (Auto) 0.8, Eosinophils # (Auto) 0.3, Basophils # (Auto) 0.1, Immature Granulocyte # (Auto) 0.0, Prothrombin Time 12.4, INR Comment 0.9, Activated Partial Thromboplast Time 24, D-Dimer 2.29, Sodium Level 136, Potassium Level 4.8, Chloride Level 99, Carbon Dioxide Level 27, Anion Gap 10, Blood Urea Nitrogen 20, Creatinine 1.09, Estimat Glomerular Filtration Rate 78, BUN/Creatinine Ratio 18, Glucose Level 119, Calcium Level 9.1, Corrected Calcium 9.0, Magnesium Level 1.9, Total Bilirubin 0.9, Aspartate Amino Transf (AST/SGOT) 13, Alanine Aminotransferase (ALT/SGPT) 16, Alkaline Phosphatase 76, B-Type Natriuretic Peptide 30.6, Total Protein 7.3, Albumin 4.1 07/14/23 05:27: Glucometer 190 07/14/23 05:38: White Blood Count 11.1, Red Blood Count 6.02, Hemoglobin 16.9, Hematocrit 54, Mean Corpuscular Volume 89, Mean Corpuscular Hemoglobin 28, Mean Corpuscular Hemoglobin Concent 32, Red Cell Distribution Width 15.1, Platelet Count 181, Mean Platelet Volume 11.0, Immature Granulocyte % (Auto) 0, Neutrophils (%) (Auto) 79, Lymphocytes (%) (Auto) 11, Monocytes (%) (Auto) 7, Eosinophils (%) (Auto) 3, Basophils (%) (Auto) 0, Neutrophils # (Auto) 8.8, Lymphocytes # (Auto) 1.2, Monocytes # (Auto) 0.8, Eosinophils # (Auto) 0.3, Basophils # (Auto) 0.0, Immature Granulocyte # (Auto) 0.0, Sodium Level 133, Potassium Level 4.7, Chloride Level 96, Carbon Dioxide Level 26, Anion Gap 11, Blood Urea Nitrogen 23, Creatinine 1.21, Estimat Glomerular Filtration Rate 69, BUN/Creatinine Ratio 19, Glucose Level 206, Calcium Level 9.0, Corrected Calcium 8.9, Total Bilirubin 1.4, Aspartate Amino Transf (AST/SGOT) 17, Alanine Aminotransferase (ALT/SGPT) 17, Alkaline Phosphatase 79, Total Protein 7.3, Albumin 4.1 Discharge Home Medications: Active Scripts Active Lasix (Furosemide) 40 Mg Tablet 40 Mg PO BID take 1 pill twice daily at 0700 and 1400 for 4 days then change back to 1 daily Reported Aspirin EC (Aspirin) 81 Mg Tablet.dr 81 Mg PO DAILY Magnesium Oxide 400 Mg (241.3 Mg Magnesium) Tablet 400 Mg PO DAILY Novolin R (Insulin Regular, Human) 100 Unit/Ml Vial 25 Units SC BIDAC Diltiazem 24Hr ER (Diltiazem HCl) 240 Mg Cap.er.24h 240 Mg PO HS Atorvastatin Calcium 40 Mg Tablet 40 Mg PO HS Lisinopril 20 Mg Tablet 20 Mg PO HS Klor-Con M20 (Potassium Chloride) 20 Meq Tab.er.prt 20 Meq PO BID Metformin HCl 1,000 Mg Tablet 1,000 Mg PO BID Prasugrel HCl 10 Mg Tablet 10 Mg PO DAILY Instructions to patient/family Please see electronic discharge instructions given to patient. JELENA MAYFIELD DO Jul 14, 2023 13:18
[2023-07-14 14:00] VITALS: BP 107/70
--- NOTE | 2023-07-14 16:56 | Progress Note - Cardiology ---
Cardiology SOAP Progress Note Subjective: No cp or palp or syncope No n/v/d No focal weakness No gen weakness Leg swelling better Denies leg pain Objective: I&O/Vital Signs 07/14/23 07/14/23 07/14/23 07/14/23 07:22 07:24 07:35 08:00 Temp 36.6 Pulse 70 70 Resp 16 B/P (MAP) 105/73 (84) Pulse Ox 94 90 90 O2 Delivery Nasal Cannula Nasal Cannula Nasal Cannula O2 Flow Rate 3.00 2.00 2.00 07/14/23 07/14/23 07/14/23 11:16 12:47 14:00 Temp 36.5 36.5 Pulse 73 61 61 Resp 16 16 B/P (MAP) 107/70 (82) 107/70 Pulse Ox 92 92 O2 Delivery Nasal Cannula Nasal Cannula O2 Flow Rate 2.00 2.00 07/14/23 00:00 Intake Total 1440 ml Output Total 1000 ml Balance 440 ml Weight (Pounds): 324 Weight (Ounces): 0.0 Weight (Calculated Kilograms): 146.239295 Constitutional: AAO x 3, well-developed, well-nourished Respiratory: No accessory muscle use, No respiratory distress; chest expansion is symmetric, chest is bilaterally symmetric, rhonchi (scattered), other (good air entry) Cardiovascular: regular rate-rhythm; No JVD; S1 and S2 Gastrointestional: No tender; soft; No guarding; audible bowel sounds Extremities: other (mild to mod bilat LE swelling; L>R) Neurologic/Psychiatric: other (moves all extremtiies) Skin: other (Redness to LLE) Results/Procedures: Labs Laboratory Tests 07/14/23 05:27: Glucometer 190H 07/14/23 05:38: White Blood Count 11.1H, Red Blood Count 6.02H, Hemoglobin 16.9, Hematocrit 54, Mean Corpuscular Volume 89, Mean Corpuscular Hemoglobin 28, Mean Corpuscular Hemoglobin Concent 32, Red Cell Distribution Width 15.1H, Platelet Count 181, Mean Platelet Volume 11.0, Immature Granulocyte % (Auto) 0, Neutrophils (%) (Auto) 79H, Lymphocytes (%) (Auto) 11L, Monocytes (%) (Auto) 7, Eosinophils (%) (Auto) 3, Basophils (%) (Auto) 0, Neutrophils # (Auto) 8.8H, Lymphocytes # (Auto) 1.2, Monocytes # (Auto) 0.8, Eosinophils # (Auto) 0.3, Basophils # (Auto) 0.0, Immature Granulocyte # (Auto) 0.0, Sodium Level 133L, Potassium Level 4.7, Chloride Level 96L, Carbon Dioxide Level 26, Anion Gap 11, Blood Urea Nitrogen 23H, Creatinine 1.21, Estimat Glomerular Filtration Rate 69, BUN/Creatinine Ratio 19, Glucose Level 206H, Calcium Level 9.0, Corrected Calcium 8.9, Total Bilirubin 1.4H, Aspartate Amino Transf (AST/SGOT) 17, Alanine Aminotransferase (ALT/SGPT) 17, Alkaline Phosphatase 79, Total Protein 7.3, Albumin 4.1 Laboratory Tests 07/13/23 11:35 07/14/23 05:38 A/P: Assessment: No evidence of CHF - Echo on 07/13/23: LVEF 60-65%, mild conc LVH, mildly dilated LA, mild MR, PASP 20-25 mmHg - Normal BNP Lower extermity swelling, primarily on the L leg - cellulitis suspected - no evidence fo DVT on venous duplex of 07-13-23 - Dr Anderson managing cellulitis HTN HLD DM 2 Sleep apnea - CPAP tx Tobacco user - 1 PPD - cessation advised Plan: * No acute cardiac issues identified * Outpt cardiac f/u advised, given some cardiac risk factors * Advised smoking cessation and compliance with CPAP * Dr Anderson managing non-cardiac issues JONI SASMON MD FACP [facility] Jul 14, 2023 16:56
== END 2023-07-14 14:00 | disposition home or self-care (01) ==
LOC: EDUNIT# 11:11 → ER 11:13 → 4TH 14:33 → UNDOADMOB 14:33 → 4TH 14:48 → UNDODISOB 07-14 14:00
PROVIDERS: ADMIT Internal Medicine; ATTEND Internal Medicine
DX: E87.70 Fluid overload, unspecified (principal); I51.7 Cardiomegaly; R09.02 Hypoxemia; J44.9 Chronic obstructive pulmonary disease, unspecified; I87.2 Venous insufficiency (chronic) (peripheral); G47.33 Obstructive sleep apnea (adult) (pediatric); E11.9 Type 2 diabetes mellitus without complications; J81.1 Chronic pulmonary edema; I10 Essential (primary) hypertension; E78.5 Hyperlipidemia, unspecified; I25.10 Atherosclerotic heart disease of native coronary artery without angina pectoris; R79.1 Abnormal coagulation profile; G47.30 Sleep apnea, unspecified; F17.210 Nicotine dependence, cigarettes, uncomplicated; Z79.82 Long term (current) use of aspirin; Z79.899 Other long term (current) drug therapy; Z79.4 Long term (current) use of insulin; Z79.84 Long term (current) use of oral hypoglycemic drugs
CPT/HCPCS: 71045; 71275; 80053 ×2; 82947 ×2; 83735; 83880; 85025 ×2; 85379; 85610; 85730; 93005; 93041; 93970; 94640 ×2; 94760 ×2; 94761; 96372 ×2; 96374; 96376 ×2; 99284; C8929; G0378; 36415; 93306